=== PATIENT | female | born 1970 | race Caucasian/White ===

== ENCOUNTER → 2017-11-22 12:56 | Outpatient (POV) | payer BC, SELFPAY | PROVIDERS: Visit Provider Nurse Practitioner Acute Care | DX: Z00.00 Encounter for general adult medical examination without abnormal findings (principal) ==

== ENCOUNTER 2017-12-27 10:41 | Day surgery (SDC) | payer BC, SELFPAY ==
[2017-12-24 14:24] VITALS: BMI 28.3
[2017-12-27] VITALS (10 sets, daily range): BP systolic 84–126; BP diastolic 45–75; PULSE 77–97; RESP 14–21; TEMP 36.7–36.9; O2SAT 88–98
[2017-12-27 11:05] LABS: Urine Pregnancy, HCG Qual. Negative (Negative)
--- NOTE | 2017-12-27 12:39 | P.PCN_ITS ---
[facility] Procedure Note Procedure Note:: Colonoscopy Procedure Report: Colonoscopy Endoscopist: Levi Tapia II, MD Referring physician: Abilio Constantino M.D. Date of Procedure: December 27, 2017 Equipment: Olympus 180 variable stiffness pediatric colonoscope Sedation: Fentanyl 200 mg IV/ Versed 11 mg IV Indication: Mrs. Vivar is a 47-year-old female who had a change in bowel habits with constipation that began after her trip to [place] [facility] in March 2017. She has had moderate bloating since that time. She reports no rectal bleeding, weight loss or family history of colon cancer. She did have an EGD with Dr. Abilio Constantino M.D. and had H. pylori that was treated. Her symptoms have continued. Her EGD report indicated shallow ulcerations in the antrum and pyloric channel. This is the patient's first colonoscopy. Procedure: Prior to the procedure, a history and physical exam was performed, and patient' s medications and allergies were reviewed. The risks, benefits and alternatives of the sedation and procedure were discussed with the patient. All questions were answered and informed consent was obtained. The patient was brought to the procedure room. Patient identification and proposed procedure were verified by the physician and the nurse. The patient was placed in a left lateral decubitus position and the scope was passed under direct vision. Throughout the procedure, the patient's blood pressure, pulse, and oxygen saturations were monitored continuously. The colonoscopy was accomplished without difficulty. The patient tolerated the procedure well. Findings: On digital rectal examination there was normal rectal tone. There were no external hemorrhoids. The colonoscope was introduced through the anal canal to the rectum and advanced to the cecum. The ileocecal valve and appendiceal orifice were identified. The scope was advanced a short distance into the ileum which appeared grossly normal. The scope was then withdrawn into the colon. The cecum, ascending, transverse, descending, sigmoid and rectum were grossly normal. There were no mucosal abnormalities identified. Upon retroflexion within the rectum there were grade 1 internal hemorrhoids. Impression: 1. Normal colonoscopy with intubation of the terminal ileum 2. Grade 1 internal hemorrhoids Plan: I do feel the patient has moderate obstipation related symptoms. We will discuss dietary measures and treatment options.
== END 2017-12-27 13:25 | disposition home or self-care (01) ==
LOC: OUTP 10:45
PROVIDERS: Family Provider Family Medicine; PCP Family Medicine; Visit Provider Internal Medicine Gastroenterology
PROC: 0DJD8ZZ Inspection of Lower Intestinal Tract, Via Natural or Artificial Opening Endoscopic (ICD-10-PCS; CPT 45378; principal; 2017-12-27 12:00)
DX: K59.00 Constipation, unspecified (principal); K64.0 First degree hemorrhoids
CPT/HCPCS: 45378; 81025; 99152

== ENCOUNTER → 2018-03-03 08:22 | Outpatient (CLI) | payer BC, SELFPAY ==
[2018-03-03 09:01] LABS: Basophils % 0.4 % (0.1-2.0); Eosinophils # 0.2 K/mm3 (0.0-0.4); Hematocrit 40.2 % (37.0-47.0); Hemoglobin 13.5 g/dL (12.2-16.2); Lymphocytes # 2.9 K/mm3 (0.7-4.5); Lymphocytes % 28.8 K/mm3 (10-50); Mean Corpuscular HGB Conc 33.6 g/dL (31.8-35.4); Mean Corpuscular Hemoglobin 29.6 pg (27.0-31.2); Mean Corpuscular Volume 88.2 fl (81-99); Mean Platelet Volume 7.4 fl (7.4-10.4); Monocytes # 0.4 K/mm3 (0.1-1.0); Monocytes % 4.3 % (1.7-9.3); Neutrophils # 6.4 K/mm3 (1.8-7.8); Neutrophils % 64.5 % (37.0-80.0); Platelet Count 276 K/mm3 (142-424); Red Blood Count 4.55 M/mm3 (4.20-5.40); Red Cell Distribution Width 13.4 % (11.5-17.5)
[2018-03-03 09:08] LABS: Hemoglobin A1C 5.4 % (0.0-7.0)
[2018-03-03 09:49] LABS: Alanine Aminotransferase 24 U/L (12-78); Albumin Level 3.7 gm/dL (3.4-5.0); Alkaline Phosphatase 118 U/L (46-116); Anion Gap 14.6 mEq/L (5-15); Aspartate Amino Transferase 16 U/L (15-37); Bilirubin,Total 0.2 mg/dL (0.2-1.0); Blood Urea Nitrogen 10 mg/dL (7-18); Calcium 9.3 mg/dL (8.5-10.1); Carbon Dioxide 26 mmol/L (21.0-32.0); Chloride 103 mmol/L (98-107); Chol/HDL Ratio 7.3 (1-3.5); Cholesterol 286 mg/dL (140-200); Creatinine,Serum 0.54 mg/dL (0.55-1.02); Estimated Glomerular Filt Rate 121 ml/min (>60); GFR (African American) 146 ML/MIN (>60); Globulin 3.7 gm/dl (1.3-3.2); Glucose 98 mg/dL (74-106); HDL Cholesterol 39 mg/dL (29-89); LDL Cholesterol 204 mg/dL (0-130); Potassium 4.6 mmoL/L (3.5-5.1); Sodium 139 mmol/L (136-145); Thyroid Stimulating Hormone 5.79 uIU/ml (0.358-3.740); Total Protein,Serum 7.4 gm/dL (6.4-8.2); Triglycerides 214 mg/dL (30-200); VLDL Cholesterol 43 mg/dL (0-40)
== END ==
PROVIDERS: Visit Provider Family Medicine
DX: Z00.00 Encounter for general adult medical examination without abnormal findings (principal); E03.9 Hypothyroidism, unspecified
CPT/HCPCS: 36415; 80053; 80061; 83036; 84443; 85025

== ENCOUNTER → 2018-05-02 10:39 | Outpatient (CLI) | payer BC, SELFPAY ==
--- NOTE | 2018-05-02 10:42 | MM_ITS ---
MM Dig screening mamm BI w/CAD ORDERING PHYSICIAN : Isis Vasquez PATIENT AGE: 47 years GENDER: Female INDICATION: ITS.REASON: SCREENING no hormones. No new complaints. Noncontributory family history COMPARISON: May TECHNIQUE: Standard CC and MLO images were obtained. R2 CAD reviewed. FINDINGS: Moderately dense inhomogeneous breast slightly decreases sensitivity of mammography . Prominent asymmetry RIGHT BREAST:Slightly asymmetric tissue at the superior right breast is similar to previous studies. It also dissipates on the other views. Small collection of loosely grouped punctate calcifications at the medial breast again noted, labeled LEFT BREAST: This patient again demonstrates an generous region of asymmetric density superior left breast. This measures roughly 3.6 cm x 2.3 cm This asymmetric area dates back to 2012 mammogram thus it may merely be island of asymmetric fibroglandular tissu. However does contain a few scattered calcifications with question slightly irregular margins in some regions... Inferiorly at the MLO view there is a area labeled Y which most likely is a summation shadow as it dissipates on the views Recommend the patient return for focal compression spot view of the area labeled X and Y at left breast along with left breast ultrasound since one is not been performed to evaluate this asymmetric towards upper-outer quadrant labeled X Also the patient returns suggest magnification spot views likely benign calcifications at area labeled B a . Also MLO, 90 degrees spot views of the area labeled A --------IMPRESSION: Moderately dense inhomogeneous breast LEFT BREAST Large region of asymmetric density towards towards axillary tail left breast most likely prominent area of asymmetric glandular tissue Recommend the patient return for focal compression spot view of the large region labeled X, as well as a small area Y at left breast along with left breast ultrasound since one is not been performed to evaluate this asymmetric towards upper-outer quadrant labeled X RIGHT BREAST Also within patient returns suggest magnification spot views of loosely grouped, likely benign calcifications at labeled B. . Also MLO, 90 degrees spot views of the density labeled A BI-RADS Category: 0 Need Additional Imaging Evaluaiton. RECOMMENDED FOLLOW-UP: IMM - IMMEDIATE FOLLOW-UP RECOMMENDED Spot views and ultrasound left breast . Spot views right breast as above (A letter has been sent to the patient regarding results of the study.)
== END ==
PROVIDERS: Family Provider Family Medicine; PCP Family Medicine; Visit Provider Family Medicine
DX: Z12.31 Encounter for screening mammogram for malignant neoplasm of breast (principal)
CPT/HCPCS: 77067

== ENCOUNTER → 2018-05-17 12:41 | Outpatient (CLI) | payer BC, SELFPAY ==
--- NOTE | 2018-05-17 12:49 | MM_ITS ---
MM Dig mamm BI DX w/CAD COMPARISON: Digital mammograms with CAD 05/02/2018 INDICATION: Additional problem-solving views of asymmetric lesions in each breast TECHNIQUE: Possible compression MLO and CC views of each breast and 90 degree lateral view] FINDINGS: The possible asymmetric density right breast appears to compress out on the additional views. The asymmetric glandular tissue in the left breast appears to represent simply asymmetric glandular tissue better defined on the spot compression views. It does not appear to represent a separate mass. IMPRESSION: Basically negative problem-solving views of each breast ultrasound performed the same date show no definite ultrasound correlation of the asymmetric glandular tissue. A separate lesions seen near the nipple. See the previous ultrasound report for recommendations for 6 month follow-up left mammogram. BI-RADS Category: 3 Benign Finding Short Term Follow-up RECOMMENDED FOLLOW-UP: 6M - 6 MONTH FOLLOW-UP (A letter has been sent to the patient regarding results of the study.)
--- NOTE | 2018-05-17 12:50 | US_ITS ---
US breast LT complete COMPARISON: Diagnostic mammogram same date HISTORY: Asymmetric fibroglandular density upper outer quadrant left breast TECHNIQUE: Targeted ultrasound evaluation FINDINGS: Mild diffuse heterogenic echogenicity is seen in the area of the breast scanned. In particular there is no abnormal mass or architectural distortion in the upper-outer quadrant and the finding on the mammogram likely represents simply asymmetric fibroglandular tissue. There is a small hypoechoic nodular lesion 1:00 position near the nipple probably a small complex cyst or possibly fibroadenoma measuring 0.6 cm in length. I see no definite mammogram correlation for this lesion. There is an additional hypoechoic cystic-appearing lesion at the 10:00 position near the nipple measuring 0.4 x 0.3 cm. There are couple of normal-appearing nodes in the axilla. . IMPRESSION: Findings as described above, since there is no definite mammogram correlation for the complex cystic lesion and/or fibroadenoma 1:00 position suggest patient follow-up ultrasound in 6 months to evaluate for interval stability.
== END ==
PROVIDERS: Family Provider Family Medicine; PCP Family Medicine; Visit Provider Family Medicine
DX: R92.8 Other abnormal and inconclusive findings on diagnostic imaging of breast (principal)
CPT/HCPCS: 76641; 77066

== ENCOUNTER → 2018-11-18 12:42 | Outpatient (CLI) | payer BC, SELFPAY ==
--- NOTE | 2018-11-18 12:53 | US_ITS ---
US breast LT complete Ordering Physician: Isis Vasquez Patient Age: 48 years: Female HISTORY: ITS.REASON: ABNORMAL MAMM TECHNIQUE: Ultrasound survey entire left breast including axillary survey COMPARISON :05/17/2018 ultrasound left breast FINDINGS Moderately dense breast on ultrasound.. 1:00. Small up 6.9 mm mixed echogenicity area.. This is seen previously with no significant change since previous ultrasound I suspect there are some scattered small] apocrine cysts throughout this region central breast cancer this appearance. Follow-up adequate 6:00. Small 3 mm debris-filled cyst.. 10:00 behind nipple 4.2 mm cyst 10:00 outer breast small 4 mm cyst A few scattered benign axillary lymph nodes. ----IMPRESSION: No significant new findings. Scattered small cystic areas, left breast. Small mixed density area 1:00 appears stable, with no significant change.-Suspect scattered apocrine cysts likely here Bilateral follow-up mammogram 6 months to resume annual schedule.. . . Follow-up left breast ultrasound at that time could additionally confirm stability of the above features BI-RADS Category: 2 Benign Finding(s) RECOMMENDED FOLLOW-UP: 6M 6 MONTH FOLLOW-UP . bilateral mammogram 6 months to resume annual scheduled (A letter has been sent to the patient regarding results of the study.)
== END ==
PROVIDERS: PCP Family Medicine; Visit Provider Family Medicine
DX: R92.8 Other abnormal and inconclusive findings on diagnostic imaging of breast (principal)
CPT/HCPCS: 76641

== ENCOUNTER 2019-01-18 08:30 | Outpatient (RCR) | payer BC, SELFPAY ==
--- NOTE | 2018-12-16 09:29 | HMH.OTOPEV ---
OT Inpatient Evaluation Rehab OT Outpatient Eval Start: 12/16/18 08:58 Freq: Status: Active Protocol: Document 12/16/18 08:58 RM[facility] (Rec: 12/16/18 09:28 [id number] Electronically Signed By Arthur Moore OT 12/16/18 08:58 Outpatient Therapy Subjective History Subjective History Pt is a 48 year old female who reports to therapy for initial evaluation for left thumb. Pt reports she hit her left thumb on a barn door months ago, which initially started her pain. Pt was then diagnosed with De quervain's in October, and was put in a thumb spica cast for 3 weeks. Pt currently continues to have pain during certain activities. Pt is wearing a thumb spica brace at this time in order to continue to protect the thumb during activities. Pt does demonstrate with slight decreased AROM, strength, and hotel assistant manager strength. Pt will continue to be seen in order to address these deficits. L Thumb Short Term Goals AROM MP Abd: 90 MP Flex: 50 IP Flex: 50 L Thumb Snf Goals AROM MP Abd: 90 MP Flex: 60 IP Flex: 80 STG MMT L thumb MP: 4, 4+/5 IP: 4,4+/5 LTG MMT L thumb MP: 5/5 IP: 5/5 L hand hotel assistant manager strength: 25 lbs STG L hand hotel assistant manager strength: 30 lbs LTG Chief Complaint Pain Stiff Swelling Weakness Symptom Type Ache Throb Dull Stabbing Symptoms Relieved By Ice Symptoms Aggravated By Physical Activity Twisting
== END 2019-01-18 08:35 | disposition home or self-care (01) ==
LOC: OT 08:30
PROVIDERS: Visit Provider Orthopaedic Surgery
DX: M65.4 Radial styloid tenosynovitis [de Quervain] (principal)
CPT/HCPCS: 97014; 97018; 97035; 97110; 97140; 97166; G0283

== ENCOUNTER → 2019-05-31 13:24 | Outpatient (CLI) | payer BC, SELFPAY ==
--- NOTE | 2019-05-31 13:34 | MM_ITS ---
MM Dig mamm BI DX w/CAD Left breast ultrasound complete with axilla INDICATION: 6 month follow-up abnormal mammogram ORDERING PHYSICIAN: Isis Vasquez PATIENT AGE: 48 years COMPARISON: 05/02/2018, 11/18/2018, 05/17/2018 TECHNIQUE: Standard images performed of both breasts along with bilateral spot compression views and right breast ultrasound FINDINGS: There is dense fibroglandular tissue decreasing the sensitivity of mammography. Right breast: Scattered areas of asymmetric density along with benign-appearing calcifications. Asymmetric densities are noted in the retroareolar region. Asymmetric density is present in the superior right breast which does appear to compress out.. Benign-appearing calcifications are present in the inferior aspect of the right breast. These are slightly more prominent compared to the previous study but do have benign appearance. An ML view was attempted however was there was a moderate amount of motion artifact obscuring these areas of calcification. Left breast: There are scattered calcifications in the upper outer aspect of the left breast. There is some asymmetric density in this region as well similar to the previous exam. There was a mild degree of motion artifact on the spot views and moderate degree of motion artifact on the ML view. Calcifications have an unremarkable morphology. There may be some additional calcifications compared to the previous study. This however is questionable. Continued follow-up is recommended. Left breast ultrasound: There is a stable oval 6 mm isoechoic nodule at 1:00. There is a 5 mm cyst at 6:00. 4 mm hypoechoic nodule at 10:00 unchanged. No malignant appearing mass evident. IMPRESSION: No convincing evidence of malignancy. Bilateral calcifications are noted which are probably benign. Recommend continued bilateral 6 month follow-up with magnification views. Otherwise negative BI-RADS Category: 3 Probably Benign Finding Short Term Follow-up RECOMMENDED FOLLOW-UP: 6M - 6 MONTH FOLLOW-UP (A letter has been sent to the patient regarding results of the study.)
== END ==
PROVIDERS: PCP Family Medicine; Visit Provider Family Medicine
DX: R92.8 Other abnormal and inconclusive findings on diagnostic imaging of breast (principal)
CPT/HCPCS: 76641; 77066

== ENCOUNTER → 2020-05-13 14:19 | Outpatient (CLI) | payer OTHER, BC, SELFPAY ==
--- NOTE | 2020-05-13 14:28 | CT_ITS ---
PROCEDURE: CT FACIAL BONES WO CON CLINICAL HISTORY: headach, facial pain COMPARISON: No exams were available for comparison TECHNIQUE: Axial images obtained with sagittal and coronal reformats. All CT scans at the facility use one or more dose reduction, viz: automated exposure control, ma/kV adjustment per patient size (including targeted exams where dose is matched to indication, i.e. head), or iterative reconstruction technique. FINDINGS: The paranasal sinuses have an unremarkable appearance. No air-fluid level, significant mucosal thickening, or sinus mass.. No air-fluid levels are evident. No significant nasal septal deviation. There is a small right dilma bullosa. The ostiomeatal units are patent. No mastoid effusion. The orbits have an unremarkable appearance. There are few scattered small cervical lymph nodes the measuring up to 15 by 9 mm on the right and left side. There are minimal osteoarthritic changes of the TMJ on the right. IMPRESSION: Negative CT sinuses. 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
--- NOTE | 2020-05-13 14:29 | MM_ITS ---
PROCEDURE: MM DIG MAMM BI DX W/CAD Digital Breast Tomosynthesis Included CLINICAL INDICATION: ABN MAMM Follow-up abnormal mammogram COMPARISON: [facility] DIG MAMM-SCREEN ANILA from 05/15/2016 [facility] MM Dig screening mamm BI w/CAD from 05/02/2018 [facility] MM Dig mamm BI DX w/CAD from 05/17/2018 DIG MAMM-DX ANILA from 05/31/2019 TECHNIQUE: Standard images performed along with tomosynthesis and Mag views FINDINGS: Average fibroglandular tissue. Cluster microcalcifications once again noted in the lower inner aspect of the right breast. They may have increased in number with a few pleomorphic calcifications. Biopsy suggested. Loosely clustered calcifications are present in the upper outer left breast. These may also have increased in number.. IMPRESSION: Indeterminate bilateral breast calcifications which have slightly increased in number. Suggest stereotactic biopsy bilateral BI-RAD Category: 4 Suspicious Abnormality - Biopsy Considered FOLLOW-UP: BIO Biopsy Recommended (A letter has been sent to the patient regarding results of the study.) Dictated by: Nash Lainez MD 05/17/2020 17:30 Electronically signed by Nash Lainez MD in [place] 05/17/2020 17:30
== END ==
PROVIDERS: PCP Physician Assistant; Visit Provider Family Medicine
DX: R51 Headache (principal); S06.0X0A Concussion without loss of consciousness, initial encounter; R92.8 Other abnormal and inconclusive findings on diagnostic imaging of breast
CPT/HCPCS: 70486; 77062; 77066; G0279

== ENCOUNTER → 2020-11-18 11:59 | Outpatient (CLI) | payer BC, SELFPAY ==
--- NOTE | 2020-11-18 12:03 | XR_ITS ---
PROCEDURE: XR ANKLE LT MIN 3V CLINICAL INDICATION: left ankle pain COMPARISON: DX XR FOOT LT MIN 3V from 11/18/2020 FINDINGS: No fracture or dislocation. No lytic or blastic change. There is normal mineralization. The joint spaces are well-preserved. No significant degenerative/arthritic changes. No erosive changes evident. Other findings:None. IMPRESSION: Negative left foot and ankle Dictated by: Nash Lainez MD 11/18/2020 15:04 Nash Lainez MD in [place] 11/18/2020 15:04
[2020-11-18 15:11] LABS: Basophils # 0.1 K/mm3 (0-0.2); Basophils % 0.6 % (0.1-2.0); Eosinophils # 0.3 K/mm3 (0.0-0.4); Eosinophils % 2.9 % (0.1-12.0); Hematocrit 45.3 % (37.0-47.0); Lymphocytes # 3.1 K/mm3 (0.7-4.5); Lymphocytes % 32.2 % (10-50); Mean Corpuscular HGB Conc 33.1 g/dL (31.8-35.4); Mean Corpuscular Hemoglobin 28.9 pg (27.0-31.2); Mean Corpuscular Volume 87.3 fl (81-99); Mean Platelet Volume 9.3 fl (7.4-10.4); Monocytes # 0.4 K/mm3 (0.1-1.0); Monocytes % 4.4 % (1.7-9.3); Neutrophils # 5.7 K/mm3 (1.8-7.8); Neutrophils % 59.9 % (37.0-80.0); Platelet Count 336 K/mm3 (142-424); Red Blood Count 5.19 M/mm3 (4.20-5.40); Red Cell Distribution Width 14.1 % (11.5-17.5); White Blood Count 9.5 K/mm3 (4.8-10.8)
[2020-11-18 15:18] LABS: Alanine Aminotransferase 29 U/L (12-78); Albumin Level 4.7 g/dl (3.5-5.0); Albumin/Globulin Ratio 1.4 (1.1-1.8); Alkaline Phosphatase 158 U/L (38-126); Anion Gap 16.6 mEq/L (5-15); Aspartate Amino Transferase 33 U/L (14-36); Bilirubin,Total 0.4 mg/dl (0.2-1.3); Blood Urea Nitrogen 13 mg/dl (7-17); Calcium 10.4 mg/dl (8.4-10.2); Carbon Dioxide 26 mmol/L (22.0-30.0); Chloride 101 mmol/L (98-107); Chol/HDL Ratio 5.7 (1-3.5); Cholesterol 264 mg/dl (140-200); Estimated Glomerular Filt Rate 106 ml/min (>60); GFR (African American) 128 ML/MIN (>60); Globulin 3.4 g/dL (1.3-3.2); Glucose 114 mg/dl (74-100); HDL Cholesterol 46 mg/dl (40-60); Potassium 4.6 mmoL/L (3.5-5.1); Sodium 139 mmol/L (136-145); Total Protein,Serum 8.1 g/dl (6.3-8.2); Triglycerides 277 mg/dl (30-150); VLDL Cholesterol 55 mg/dL (0-40)
[2020-11-18 15:34] LABS: 25-OH Vitamin D, Total 21.6 ng/mL (30-100); Free T4 (Free Thyroxine) 1.03 ng/dl (0.78-2.19)
== END ==
PROVIDERS: PCP Physician Assistant; Visit Provider Physician Assistant
DX: Z00.00 Encounter for general adult medical examination without abnormal findings (principal); S99.911A Unspecified injury of right ankle, initial encounter; E55.9 Vitamin D deficiency, unspecified
CPT/HCPCS: 73610; 73630; 80053; 80061; 82306; 84439; 84443; 85025

== ENCOUNTER 2021-01-21 18:08 | Emergency (ER) | payer BC, SELFPAY ==
--- NOTE | 2021-01-21 18:32 | XR_ITS ---
PROCEDURE: XR ELBOW RT MIN 3V CLINICAL INDICATION: FALL COMPARISON: No exams were available for comparison FINDINGS: No fracture or dislocation. No lytic or blastic change. There is normal mineralization. The joint spaces are well-preserved. No significant degenerative/arthritic changes. No erosive changes evident. Other findings:There is a nonspecific subcortical lucency measuring 2 mm involving the articular aspect of the base of the olecranon. This is of questionable clinical significance and may be artifactual in nature. IMPRESSION: No acute findings. Dictated by: Nash Lainez MD 01/21/2021 18:51 Nash Lainez MD in [place] 01/21/2021 18:51
[2021-01-21 18:47] VITALS: BP 144/87; PULSE 93; RESP 14; TEMP 36.6; O2SAT 98; BMI 20.3
--- NOTE | 2021-01-21 19:03 | HMH.EDUTC ---
[facility] [place] Disposition Clinical Impression: Right elbow pain Fall Qualifiers: Encounter type: initial encounter Qualified Code(s): W19.XXXA - Unspecified fall, initial encounter Disposition: Home, Self-Care Condition on Discharge: Good Instructions: Elbow Sprain, DI for Contusion Additional Instructions: Rest the extremity, Elevate the extremity as tolerated while you are resting. Take ibuprofen for pain. Follow up with Dr. Douglas (orthopedics). I put in a referral but you need to call his office and schedule an appointment. Follow up with your regular doctor. GO TO THE ER FOR ANY WORSENING SYMPTOMS Prescriptions: Ibuprofen [Ibuprofen 800mg Tablet] 800 mg PO Q8HP PRN #30 tab PRN Reason: Moderate Pain Transmission Status: Received by [id number] Referrals: Isis Vasquez [Primary Care Provider] - Daniel Douglas MD [Staff Physician] - Time of Disposition: 19:12 Medical Decision Making - Medical Records Medical records reviewed: No: I reviewed the patient's medical records. - Harry Inquiry Pt receiving controlled substance: No Vital Signs: 01/21/21 18:47 01/21/21 19:38 Temperature 98 F 98 F Temperature Source Oral Pulse Rate 81 Pulse Rate [Right] 93 H Respiratory Rate 14 14 Blood Pressure 119/87 Blood Pressure [Right Arm] 144/87 H Blood Pressure Mean [Right Arm] 106 Blood Pressure Source [Right Arm] Automatic Cuff Blood Pressure Position [Right Arm] Sitting 02 Sat by Pulse Oximetry 98 Oxygen Delivery Method Room Air - Radiology Data #1 Image(s): Elbow Image Reviewed: Yes I reviewed the patient's radiology image, Yes I have reviewed radiologist's interpretation Preliminary Findings: No Fracture Seen PROCEDURE: XR ELBOW RT MIN 3V CLINICAL INDICATION: FALL COMPARISON: No exams were available for comparison FINDINGS: No fracture or dislocation. No lytic or blastic change. There is normal mineralization. The joint spaces are well-preserved. No significant degenerative/arthritic changes. No erosive changes evident. Other findings:There is a nonspecific subcortical lucency measuring 2 mm involving the articular aspect of the base of the olecranon. This is of questionable clinical significance and may be artifactual in nature. IMPRESSION: No acute findings. Dictated by: Nash Lainez MD 01/21/2021 18:51 Nash Lainez MD in [place] 01/21/2021 18:51 [facility] [place] HPI - General Stated complaint: AO fell Injured R Elbow/arm Time Seen by Provider: 01/21/21 19:03 Mode of Arrival: Ambulatory Source of Information: Patient Limitations: No Limitations Description of Symptoms (Recalled from Triage Doc. by RN): pt fell and injured her right elbow and fore arm. HEENT Symptoms (Recalled from RN notes): No Resp Symptoms (Recalled from RN notes): No Skin Symptoms (Recalled from RN notes): No MS Symptoms (Recalled from RN notes): Yes (R arm and elbow pain) Functional Status (Recalled from RN notes): na - History of Present Illness Provider Complaint: She states that over the past 1 month, she has fell twice and came down on her right elbow. The last time she fell was around 2 weeks ago. Since then she has had right elbow pain. - Related Data Home Medications Medication Instructions Recorded Confirmed escitalopram oxalate 20 mg tablet 20 mg PO ONCE 12/03/17 11/18/20 lactobacillus combination no.9 4 1 cap PO DAILY cap 01/11/19 11/18/20 billion cell capsule vortioxetine 10 mg tablet 10 mg PO DAILY 09/19/20 11/18/20 Previous Rx's Medication Instructions Recorded pantoprazole 40 mg tablet,delayed 40 mg PO DAILY #90 tab 08/15/20 release ergocalciferol (vitamin D2) 1,250 1,250 mcg PO WEEKLY #5 cap 11/19/20 mcg (50,000 unit) capsule levothyroxine 88 mcg tablet 88 mcg PO DAILY #30 tab 11/19/20 atorvastatin 10 mg tablet 10 mg PO HS #30 tab 11/28/20 dextroamphetamine-amphetamine ER 20 mg PO DAILY #30 cap 01/20/21 20 mg 24hr capsule,extend r
[2021-01-21 19:38] VITALS: BP 119/87; PULSE 81; RESP 14; TEMP 36.6
== END 2021-01-21 19:25 | disposition home or self-care (01) ==
PROVIDERS: Emergency Provider Nurse Practitioner Family; PCP Family Medicine
DX: M25.521 Pain in right elbow (principal); W18.30XA Fall on same level, unspecified, initial encounter; K21.9 Gastro-esophageal reflux disease without esophagitis; E03.9 Hypothyroidism, unspecified; F17.210 Nicotine dependence, cigarettes, uncomplicated
CPT/HCPCS: 73080; 99202; G0463

== ENCOUNTER → 2021-01-29 09:27 | Outpatient (CLI) | payer BC, SELFPAY ==
--- NOTE | 2021-01-29 09:32 | XR_ITS ---
PROCEDURE: XR ELBOW RT MIN 3V CLINICAL INDICATION: Rt elbow COMPARISON: CR XR ELBOW RT MIN 3V from 01/21/2021 FINDINGS: No acute fractures or dislocations. Bone density is normal. Degenerative changes of the elbow joint noted. The anterior posterior fat pad are within normal limits without evidence of elevation or joint effusion. No significant soft tissue abnormality. IMPRESSION: Degenerative changes. No acute fractures. Dictated by: Chante Douglas 01/29/2021 11:46 Chante Douglas in [facility] 01/29/2021 11:46
== END ==
LOC: RAD 09:29
PROVIDERS: PCP Physician Assistant; Visit Provider Orthopaedic Surgery
DX: M25.521 Pain in right elbow (principal); W19.XXXA Unspecified fall, initial encounter
CPT/HCPCS: 73080

== ENCOUNTER → 2021-07-24 16:44 | Outpatient (CLI) | payer BC, SELFPAY | PROVIDERS: PCP Physician Assistant; Visit Provider Nurse Practitioner | DX: Z20.822 Contact with and (suspected) exposure to COVID-19 (principal) | CPT/HCPCS: C9803; U0003; U0005 ==

== ENCOUNTER → 2021-09-02 08:57 | Outpatient (CLI) | payer BC, SELFPAY | PROVIDERS: PCP Physician Assistant; Visit Provider Nurse Practitioner | DX: Z20.822 Contact with and (suspected) exposure to COVID-19 (principal) | CPT/HCPCS: C9803; U0003; U0005 ==

== ENCOUNTER → 2021-12-01 08:58 | Outpatient (CLI) | payer BC, SELFPAY ==
[2021-12-02 07:02] LABS: Covid-19 Nasal PCR Sendout Lex NOT DETECTED
== END ==
PROVIDERS: Visit Provider Nurse Practitioner
DX: Z20.822 Contact with and (suspected) exposure to COVID-19 (principal)
CPT/HCPCS: C9803; U0004; U0005

== ENCOUNTER 2022-03-17 14:56 | Outpatient (RCR) | payer BC, SELFPAY | END 2022-03-17 15:29 | disposition home or self-care (01) | LOC: PT 14:56 | PROVIDERS: Visit Provider Physician Assistant | DX: M25.572 Pain in left ankle and joints of left foot (principal) | CPT/HCPCS: 97760 ==

== ENCOUNTER → 2022-03-17 15:09 | Outpatient (CLI) | payer BC, SELFPAY ==
--- NOTE | 2022-03-17 15:15 | XR_ITS ---
FINAL REPORT CLINICAL HISTORY: left ankle pain COMPARISON: November 18, 2020 FINDINGS: LEFT ANKLE: Three views of the left ankle were obtained. There is no acute fracture or dislocation. The joint spaces and mortise are intact. There is no soft tissue abnormality. IMPRESSION: No acute bony abnormality. Reviewed, Interpreted and Dictated by Kavon Anderson III, MD Transcribed by Arcelia Hernandez Authenticated by Kavon Anderson III, MD on 03/17/2022 04:17:[address] [facility]
== END ==
LOC: RAD 15:10
PROVIDERS: PCP Family Medicine; Visit Provider Physician Assistant
DX: M25.572 Pain in left ankle and joints of left foot (principal)
CPT/HCPCS: 73610

== ENCOUNTER 2022-08-30 15:40 | Emergency (ER) | payer BC, SELFPAY ==
[2022-08-30 15:41] VITALS: BP 151/79; PULSE 108; RESP 18; TEMP 36.7; O2SAT 98; BMI 26.5
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
[2022-08-30 16:57] VITALS: BP 140/74; PULSE 95; RESP 19; TEMP 36.7; O2SAT 98
== END 2022-08-30 16:57 | disposition home or self-care (01) ==
PROVIDERS: Emergency Provider Emergency Medicine; PCP Physician Assistant
DX: S29.9XXA Unspecified injury of thorax, initial encounter (principal); Z79.899 Other long term (current) drug therapy; F41.9 Anxiety disorder, unspecified; F90.9 Attention-deficit hyperactivity disorder, unspecified type; F31.9 Bipolar disorder, unspecified; K21.9 Gastro-esophageal reflux disease without esophagitis; Z72.0 Tobacco use
CPT/HCPCS: 71101; 99283

== ENCOUNTER → 2022-11-18 09:07 | Outpatient (CLI) | payer BC, SELFPAY ==
[2022-11-18 16:47] LABS: Amphetamine/Metha Screen,Urine Negative ng/ml (<1000)
[2022-11-18 16:48] LABS: Barbiturates Screen,Urine Negative ng/ml (<200)
[2022-11-18 16:49] LABS: Benzodiazepines Screen,Urine Negative ng/ml (<200); Cannabinoid Screen,Urine Negative ng/ml (<50)
[2022-11-18 16:50] LABS: Cocaine Screen,Urine Negative ng/ml (<300)
[2022-11-18 16:51] LABS: Methadone Screen,Urine Negative ng/ml (<300); Opiate Screen,Urine Negative ng/ml (<300)
[2022-11-18 16:52] LABS: Phencyclidine Screen,Urine Negative ng/ml (<25)
== END ==
PROVIDERS: PCP Physician Assistant; Visit Provider Physician Assistant
DX: F90.9 Attention-deficit hyperactivity disorder, unspecified type (principal); Z79.899 Other long term (current) drug therapy
CPT/HCPCS: 80305

== ENCOUNTER → 2022-12-10 23:21 | Outpatient (CLI) | payer BC, SELFPAY | PROVIDERS: PCP Student in an Organized Health Care Education/Training Program; Visit Provider Student in an Organized Health Care Education/Training Program | DX: R05.9 Cough, unspecified (principal); J02.9 Acute pharyngitis, unspecified | CPT/HCPCS: 87070; C9803; U0003; U0005 ==

== ENCOUNTER 2023-04-20 09:15 | Day surgery (SDC) | payer BC, SELFPAY ==
[2023-04-19 16:05] VITALS: BMI 20.3
[2023-04-20 09:32] VITALS: BP 132/71; PULSE 104; RESP 18; TEMP 36.3; O2SAT 96
--- NOTE | 2023-04-20 09:37 | HMH.SCOPE ---
Procedure: Date: 04/20/23 Patient Date of :: 1970 Procedure Performed:: Esophagogastroduodenoscopy with biopsy Colonoscopy Indications:: History of peptic ulcer disease noted in 2019 Screening colonoscopy Performing Provider:: Abilio Constantino MD Referring Provider:: . Sedation:: Monitored anesthesia care Procedure:: After informed consent was obtained the patient was taken to the endoscopy suite. Sedation ensued after the patient was transferred to the left lateral decubitus position. Pulse, blood pressure, and oxygen saturation were monitored throughout the procedure. The endoscope was advanced beyond the duodenal bulb. Retroflexion within the gastric lumen was accomplished. The gastroscope was carefully removed. Digital rectal exam revealed no significant abnormality. The colonoscope was placed in position. The entire colon was evaluated. The colonoscope was carefully removed and the patient was transferred to recovery in stable condition. Please see findings and specimens below for detail. Findings:: Gastroesophageal junction at 39 cm Small sliding hiatal hernia (unchanged) Mild streaking gastritis distally Bowel preparation moderate Moderate sigmoid tortuosity Moderate colonic spasticity Specimens:: Antral biopsy Recommendations:: Follow-up pathology Repeat colonoscopy in 3-5 years secondary to moderate preparation, moderate spasticity, and moderate tortuosity. Complications:: No immediate Estimated blood obtained (mL): 1 Colonoscopy Component Colonoscopy Component Was a colonoscopy performed during today's procedure?: Yes Recommended follow up colonoscopy of at least 10 years?: No If no, follow up colonoscopy recommended in ___ years?: 3-5 years Reason for not recommending >/= 10 yr follow-up interval?: Moderate preparation; moderate spasticity; moderate tortuosity
[2023-04-20 09:44] VITALS: O2SAT 96
[2023-04-20 10:23] VITALS: BP 112/72; PULSE 91; RESP 18; TEMP 36.3; O2SAT 94
--- NOTE | 2023-04-20 10:27 | EXP.ANES.CKL ---
[facility] Disclaimer: The information contained in this section may have been updated after the patient was seen, as this information can be updated by other users. Medical History Attention Deficit Hyperactivity Disorder (ADHD) Bipolar disorder, current episode depressed, mild Gastroesophageal reflux disease Surgical History History of appendectomy History of colonoscopy History of tubal ligation Family History Other No significant family history Social History (Updated 04/20/23 @ 09:27 by Rosaline Carpenter RN) Smoking Status: Current every day smoker tobacco type: cigarettes packs per day: 1 alcohol intake: never substance use type: denies use current occupational status: employed Travel in the last 8 weeks: None household members: family housing: house caffeine: Yes do you feel safe at home: Yes victim of physical abuse: No victim of emotional abuse: No victim of sexual abuse: No would you like helpful sources: No [facility] Anesthesia Checklist Patient Identification Patient Identification: Arm Band Structural Data Admitted From: Home Planned Operative Procedure/s: EGD/Colonoscopy Consent for Planned Operative Procedure(s) Verified: Yes Verified Documents: Surgical Consent and History and Physical NPO Status Verified Time NPO: 00:00 Additional verifications Anesthesia Reactions: No Airway Assessment C-Spine Mobility Assessed: Yes TMJ Mobility Assessed: Yes Dentition: Good Dentition Neurological Assessment Level of Consciousness: Awake and Alert Anesthesia Plan Anesthesia Risk discussed: Yes Anesthesia Plan: Verified ASA Class: II Anesthesia Type: MAC
[2023-04-20 10:35] VITALS: BP 123/69; PULSE 80; RESP 18; O2SAT 97
[2023-04-20 10:50] VITALS: BP 119/83; PULSE 84; RESP 18; O2SAT 97
== END 2023-04-20 10:50 | disposition home or self-care (01) ==
PROVIDERS: PCP Physician Assistant; Visit Provider Surgery
PROC: 0DJ08ZZ Inspection of Upper Intestinal Tract, Via Natural or Artificial Opening Endoscopic (ICD-10-PCS; CPT 43235; principal; 2023-04-20 10:30)
DX: K31.9 Disease of stomach and duodenum, unspecified (principal); Z87.11 Personal history of peptic ulcer disease; K44.9 Diaphragmatic hernia without obstruction or gangrene; K63.89 Other specified diseases of intestine; Z12.11 Encounter for screening for malignant neoplasm of colon
CPT/HCPCS: 43239; 45378; J2704

== ENCOUNTER → 2023-05-21 14:07 | Outpatient (CLI) | payer BC, SELFPAY ==
[2023-05-21 13:09] LABS: Barbiturates Screen,Urine Negative ng/ml (<200)
[2023-05-21 13:10] LABS: Amphetamine/Metha Screen,Urine Negative ng/ml (<1000); Benzodiazepines Screen,Urine Negative ng/ml (<200)
[2023-05-21 13:11] LABS: Cannabinoid Screen,Urine Negative ng/ml (<50)
[2023-05-21 13:12] LABS: Cocaine Screen,Urine Negative ng/ml (<300); Methadone Screen,Urine Negative ng/ml (<300)
[2023-05-21 13:13] LABS: Opiate Screen,Urine Negative ng/ml (<300)
[2023-05-21 13:14] LABS: Phencyclidine Screen,Urine Negative ng/ml (<25)
== END ==
PROVIDERS: PCP Physician Assistant; Visit Provider Emergency Medicine
DX: F90.9 Attention-deficit hyperactivity disorder, unspecified type (principal)
CPT/HCPCS: 80305

== ENCOUNTER 2024-04-27 12:34 | Outpatient (CLI) | payer BC, SELFPAY ==
--- NOTE | 2024-04-27 12:40 | XR_ITS ---
FINAL REPORT TECHNIQUE: 5 views CLINICAL HISTORY: ANILA LOWER BACK PAIN COMPARISON: None FINDINGS: LUMBAR SPINE: There is grade 2 spondylolisthesis secondary to pars defects at the L5-S1 level. There is moderate diffuse degenerative change of the lumbar spine elsewhere. No acute bony abnormality is noted. Vertebral body height is normal. IMPRESSION: Moderate diffuse degenerative change and grade 2 spondylolisthesis secondary to L5-S1 pars defects. Reviewed, Interpreted and Dictated by Cielo Chapa MD Transcribed by Samreen Bush Authenticated and [facility]
== END 2024-04-27 23:59 | disposition home or self-care (01) ==
LOC: RAD 12:35
PROVIDERS: PCP Nurse Practitioner Family; Visit Provider Nurse Practitioner Family
DX: M54.50 Low back pain, unspecified (principal)
CPT/HCPCS: 72110

== ENCOUNTER 2024-07-25 09:32 | Outpatient (POV) | payer BC, SELFPAY | END 2024-07-25 23:59 | disposition home or self-care (01) | LOC: SC 09:32 | PROVIDERS: Visit Provider Dermatology | DX: Z00.00 Encounter for general adult medical examination without abnormal findings (principal) ==

== ENCOUNTER 2024-07-26 09:00 | Outpatient (RCR) | payer BC, SELFPAY | END 2024-07-26 23:59 | disposition home or self-care (01) | LOC: PT 09:00 | PROVIDERS: Visit Provider Orthopaedic Surgery Adult Reconstructive Orthopaedic Surgery | DX: M51.36 Other intervertebral disc degeneration, lumbar region (principal) | CPT/HCPCS: 97110; 97163; 97164; 97530 ==

== ENCOUNTER 2025-05-18 09:08 | Outpatient (CLI) | payer BC, SELFPAY ==
--- OUTSIDE RECORDS SUMMARY | 2025-05-11 11:45 | XMS_ITS | Continuity of Care Document ---
Author Organization [facility] Address [address] [place] [address] Phone Care Team Providers Care Roller Embosser Name Role Phone Jacinto MSN, PARCEL POST TRUCK DRIVER, Emi Unavailable Unavai lable Allergies, Adverse Reactions, Alerts Substance Reaction Status Criticality No Known Allergies Active No Inform ation Medications Medication Instructions Dosage Effective Dates (start - stop) Status Comments levothyroxine 112 mcg tablet take 1 tablet by oral route every day Wednesday-Wednesday. - Active Pristiq 50 mg tablet,extended release TAKE 1 TABLET BY MOUTH EVERY DAY - Active cetirizine 10 mg tablet take 1 tablet by oral route every day 10 MG - Active olanzapine 10 mg tablet TAKE 1 TABLET BY MOUTH EVERY DAY - Active Flonase Allergy Relief 50 mcg/actuation nasal spray,suspension spray 1 - 2 spray by intranasal route every day in each nostril as needed 50-100 MCG - Active BUSPIRONE 10MG TABLETS TAKE 1 TABLET BY MOUTH THREE TIMES DAILY - Active pantoprazole 40 mg tablet,delayed release take 1 tablet by oral route every day 40 MG - Active rosuvastatin 20 mg tablet TAKE 1 TABLET BY MOUTH EVERY DAY - Active black cohosh 540 mg capsule daily - Active Vitamin D3 50 mcg (2,000 unit) capsule take 1 capsule by oral route every day 1 capsule - Active Glucosamine Chondroitin 550 mg-30 mg-1 mg capsule daily - Active Adderall 20 mg tablet take 1 tablet by oral route every 2 days before breakfast 20 MG - Active Advance Directives Directive Yes / No Effective Date File Name No Information Encounters Encounter Description Practice Location Reason(s) For Visit Diagnoses Date Provider [facility] [[email or web address] [address] [place] [address], [facility], tel:[phone] [email or web address] No Information 5 Casey Emi. [address] [place], [place], [id number] , [place]. tel: [phone] [facility] [[email or web address]], [address] [place] [address], [facility], tel:[phone] [email or web address] Encounter for screening mammogram for malignant neoplasm of breast 5 Casey Emi. [address] [place], [place], [address] , . tel: [phone] [facility] [[email or web address]], [address] [place] [address], [facility], tel:[phone] [facility] Follow up on labs (chief complaint) Nicotine dependence, cigarettes, w/ other nicotine-induced disorderPrediabetesMajor depressionHypothyroidism , unspecifiedHyperlipidemi aEssential (primary) hypertensionAbnormal level of alkaline phosphataseBody mass index [BMI] 26.0-26.9, adult 5 Casey Emi. [address] [place], [place], [address] , [place]. tel: [phone] [facility] [[email or web address]], [address] [place] [address], [facility], [place] tel:[phone] [facility] No Information 5 Casey Emi. [address] [place], [place], [address] , [place]. tel: [phone] [facility] [[email or web address]], [address] [place] [address], [facility], [place] tel:[phone] [facility] [place] Chest Congestion (chief complaint) Acute upper respiratory infection, unspecifiedBody mass index [BMI] 27.0-27.9, adult 5 Casey Emi. [address] [place], [place], [address] [place] [address] , . tel: [phone] [facility] [[email or web address]], [address] [place] [address], [facility], tel:[phone] [facility] [place] FASTING LABS (chief complaint) Essential (primary) hypertension 5 Casey Emi. [address] [place], [place], [address] [place] [address] , . tel: [phone] [facility] [[email or web address]], [address] [place] [address], [facility], tel:[phone] [facility] [place] Depression Screening (chief complaint)P rapare (chief complaint)c hest congestion (chief complaint)t [facility] (chief complaint) Encounter for screening for depressionAcute upper respiratory infection, unspecifiedBody mass index [BMI] 28.0-28.9, adultEssential (primary) hypertensionNicotine dependence, cigarettes, w/ other nicotine-induced disorder 5 Casey Emi. [address] [place], [place], [address] , . tel: [phone] [facility] [[email or web address]], [address] [place] [address], [facility], tel:[phone] [facility] [place] Acute upper respiratory infection, unspecified 5 Casey Emi. [address] [place], [place], [address] , . tel: [phone] [facility] [[email or web address]], [address] [place] [address], [facility], tel:[phone] [facility] [place] dysuria (chief complaint) DysuriaBody mass index [BMI] 28.0-28.9, adult Mar-0 3- 5 Casey Emi. [address] [place], [place], [address] , [place]. tel: [phone] [facility] [[email or web address]], [address] [place] [address], [facility], tel:[phone] [facility] [place] urinary urgency (chief complaint)t [facility] (chief complaint) Dysuria Fe 5 Casey Emi. [address] [place], [place], [address] , [place]. tel: [phone] [facility] [[email or web address]], [address] [place] [address], [facility], [place] tel:[phone] [facility] [place] LABS (chief complaint) Hypothyroidism, unspecified 4 Casey Emi. [address] [place], [place], [address] , [place]. tel: [phone] [facility] [[email or web address]], [address] [place] [address], [facility], [place] tel:[phone] [facility] [place] FOLLOW UP ON LABS (chief complaint) Body mass index [BMI] 27.0-27.9, adultEssential (primary) hypertensionMenopauseNic otine dependence, cigarettes, w/ other nicotine-induced disorderIrritable bowel syndrome - 4 Casey Emi. [address] [place], [place], [address] , [place]. tel: [phone] [facility] [[email or web address]], [address] [place] [address], [facility], [place] tel:[phone] [facility] [place] lab collection (chief complaint) Emotional lability 4 Casey Emi. [address] [place], [place], [address] , [place]. tel: [phone] [facility] [[email or web address]], [address] [place] [address], [facility], tel:[phone] [facility] [place] No Information 4 Casey Emi. [address] [place], [place], [address] , . tel:[phone] [facility] [[email or web address]], [address] [place] [address], [facility], tel:[phone] [facility] [place] FASTING LABS (chief complaint)F ROBERTA VACCINE (chief complaint) Essential (primary) hypertension 4 Casey Emi. [address] [place], [place], [address] [place] [address] , [place]. tel: [phone] [facility] [[email or web address]], [address] [place] [address], [facility], tel:[phone] [facility] [place] follow up on labs (chief complaint) Hypothyroidism, unspecifiedHypercalcemia Abnormal level of alkaline phosphataseBody mass index [BMI] 26.0-26.9, adult 4 Casey Emi. [address] [place] [address], [address] [place] [address] , [place]. tel: [phone] [facility] [[email or web address]], [address] [place] [address], [facility], tel:[phone] [facility] [place] lab collection (chief complaint) DysuriaEssential (primary) hypertension 4 Casey Emi. [address] [place], [place], [address] , [place]. tel: [phone] [address], [facility], tel:[phone] [facility] [place] possible UTI/Yeast (chief complaint) DysuriaBody mass index [BMI] 25.0-25.9, adultUTIVaginitis 4 Casey Emi. [address] [place], [place], [address] , . tel: [phone] [facility] [[email or web address]], [address] [place] [address], [facility], tel:[phone] [email or web address] TUCKER Spondylolisthesis, lumbar region 4 Casey Emi. [address] [place], [place], [address] , [place]. tel: [phone] [facility] [[email or web address]], [address] [place] [address], [facility], tel:[phone] [facility] (chief complaint) Body mass index [BMI] 26.0-26.9, adultEncntr for tassel making machine operator exam (general) (routine) w/o abn findingsEncntr screen for infections w sexl mode of transmissLow back pain, unspecified 4 Casey Emi. [address] [place], [place], [address] , [place]. tel: [phone] [facility] [[email or web address]], [address] [place] [address], [address], [place] tel:[phone] [facility] [place] follow up labs (chief complaint) Body mass index [BMI] 27.0-27.9, adultAnxiety disorder, unspecifiedEssential (primary) hypertensionHyperlipidem iaHypothyroidism, unspecifiedNicotine dependence, cigarettes, w/ other nicotine-induced disorderPrediabetes 4 Casey Emi. [address] [place], [place], [address] , [place]. tel: [phone] [facility] [[email or web address]], [address] [place] [address], [facility], [place] tel:[phone] [facility] sore throat (chief complaint) Essential (primary) hypertensionBody mass index [BMI] 27.0-27.9, adultAcute pharyngitisOtitis media, unspecified, right ear 4 Casey Emi. [address] [place], [place], [address] , [place]. tel:[phone] [facility] [[email or web address]], [address] [place] [address], [facility], [place] tel:[phone] [facility] [place] f/u depression/ ear pain (chief complaint) Other seasonal allergic rhinitisMood disorderMajor depressionGERD disease w/ esophagitis, w/o bleedingEncounter for screening for depressionEncounter for screening examination for other mental health and behavioral disorders 4 Casey Emi. [address] [place], [place], [address] , [place]. tel:[phone], [facility], [place] tel:[phone] [facility] [place] COVID TEST (chief complaint) Encounter for screening for [id number] 4 Casey Emi. [address] [place], [place], [address] , [place]. tel:[phone] [facility] [[email or web address]], [address] [place] [address], [facility], [place] tel:[phone] [facility] [place] fasting lab collection (chief complaint) Essential (primary) hypertensionHyperlipidem iaBilateral pink eye 3 Casey Emi. [address] [place], [place], [address] , [place]. tel:[phone] [facility] [[email or web address]], [address] [place] [address], [address], [place] tel:[phone] [facility] [place] sore throat (chief complaint) Acute pharyngitisBody mass index [BMI] 27.0-27.9, adult 3 Casey Emi. [address] [place], [place], [address] , [place]. tel:[phone] [facility] [[email or web address]], [address] [place] [address], [facility], tel:[phone] [facility] [place] Anxiety (chief complaint) Hypothyroidism, unspecifiedBody mass index [BMI] 27.0-27.9, adultAnxiety disorder, unspecifiedAD/HD, predominantly inattentive presentationMood disorderEssential (primary) hypertensionNicotine dependence, cigarettes, w/ other nicotine-induced disorder 3 Casey Emi. [address] [place], [place], [address] , [place]. tel: [phone] [facility] [[email or web address]], [address] [place] [address], [facility], tel:[phone] [facility] [place] Medication (chief complaint) AD/HD, predominantly inattentive presentationBody mass index [BMI] 27.0-27.9, adultAnxiety disorder, unspecifiedEmotional labilityNicotine dependence, cigarettes, w/ other nicotine-induced disorderHypothyroidism 3 Casey Emi. [address] [place], [place], [address] , [place]. tel: [phone] [facility] [[email or web address]], [address] [place] [address], [facility], tel:[phone] [facility] [place] Fasting Labs (chief complaint) Essential (primary) hypertension 3 Casey Emi. [address] [place], [place], [address] , [place]. tel: [phone] [facility] [[email or web address]], [address] [place] [address], [facility], tel:[phone] [facility] [place] Follow up on Labs (chief complaint) Anxiety disorder, unspecifiedEmotional labilityEssential (primary) hypertensionHyperlipidem iaHypothyroidismMood disorderBody mass index [BMI] 27.0-27.9, adult Naren- 3 Casey Emi. [address] [place], [place], [address] , [place]. tel:[phone] [facility] [[email or web address]], [address] [place] [address], [facility], tel:[phone] [email or web address] [place] lab collection (chief complaint) Essential (primary) hypertension 3 Casey Emi. [address] [place], [place], [address] , [place]. tel:[phone] [facility] [[email or web address]], [address] [place] [address], [facility], tel:[phone] [facility] [place] follow up meds (chief complaint) Body mass index [BMI] 28.0-28.9, adultAnxiety disorder, unspecified 3 Casey Emi. [address] [place], [place], [address] , [place]. tel:[phone] [facility] [[email or web address]], [address] [place] [address], [facility], tel:[phone] [email or web address]A [place] follow up on meds (chief complaint) Body mass index [BMI] 28.0-28.9, adultAnxiety disorder, unspecifiedMenopause 3 Casey Emi. [address] [place], [place], [address] , [place]. tel:[phone] [facility] [[email or web address]], [address] [place] [address], [facility], [place] tel:[phone] [email or web address]A [place] menopause (chief complaint) Anxiety disorder, unspecifiedEmotional labilityEssential (primary) hypertensionHypothyroidi smMood disorderNicotine dependence, cigarettes, w/ other nicotine-induced disorderUnspecified menopausal and perimenopausal disorder 3 Casey Emi. [address] [place], [place], [address] , . tel: [phone] [facility] [[email or web address]], [address] [place] [address], [address], tel:[phone] [facility] follow up (chief complaint) Body mass index [BMI] 29.0-29.9, adultAcute upper respiratory infection, unspecifiedHypothyroidis mHyperlipidemiaEssential (primary) hypertension 3 Casey Emi. [address] [place], [place], [address] , . tel: [phone] [facility] [[email or web address]], [address] [place] [address], [address], tel:[phone] [facility] follow up meds (chief complaint) Body mass index [BMI] 29.0-29.9, adultAnxiety disorder, unspecifiedMood disorderHypothyroidismNi cotine dependence, cigarettes, w/ other nicotine-induced disorder 3 Casey Emi. [address] [place], [place], [address] , . tel: [phone] [facility] [[email or web address]], [address] [place] [address], [facility], tel:[phone] [email or web address]A DEBORD GERD (chief complaint) GERD disease w/ esophagitis, w/o bleeding 3 Casey Emi. [address] [place], [place], [address] , [place]. tel: [phone] [facility] [[email or web address]], [address] [place] [address], [address], [place] tel:[phone] [facility] follow up labs (chief complaint) Anxiety disorder, unspecifiedHypothyroidis mHyperlipidemiaGERD disease w/ esophagitis, w/o bleedingNicotine dependence, cigarettes, w/ other nicotine-induced disorderElevated blood-pressure reading w/o diagnosis of HTNBody mass index [BMI] 29.0-29.9, adult 2 Casey Emi. [address] [place], [place], [address] , [place]. tel:[phone] [facility] [[email or web address]], [address] [place] [address], [facility], tel:[phone] [facility] follow up medication (chief complaint) ADHDAnxiety disorder, unspecifiedHypothyroidis mMood disorderMixed irritable bowel syndromeChanges in skin texture 2 Casey Emi. [address] [place], [place], [address] , [place]. tel:[phone] [facility] [[email or web address]], [address] [place] [address], [facility], [place] tel:[phone] [email or web address] anxiety (chief complaint) Anxiety disorder, unspecifiedHypothyroidis [facility] 2 Casey Emi. [address] [place], [place], [address] , [place]. tel: [phone] [facility] [[email or web address]], [address] [place] [address], [facility], [place] tel:[phone] [facility] follow up labs (chief complaint) Anxiety disorder, unspecifiedHypothyroidis mHyperlipidemiaMood disorderOtalgia, right ear 2 Casey Emi. [address] [place], [place], [address] , [place]. tel:[phone] [facility] [[email or web address]], [address] [place] [address], [facility], [place] tel:[phone] [email or web address]A [place] NEW PATIENT (chief complaint)G eneSight Testing (chief complaint) Encounter for screening for depressionEncounter for screening examination for other mental health and behavioral disordersEncounter for screening for diseases of the blood and blood-forming organs and certain disorders involving the immune mechanismAnxiety disorder, unspecifiedEmotional labilityFatigueEncounter for immunization 2 Jacinto Middleton. [address] [place], [place], [address] , . tel:[phone] Family History Family Member Type Diagnosis Age At Onset Mother Problem Glacoma Maternal grandfather Problem alzheimer's disease Mother Problem Alive and well Father Problem Alive and well Maternal grandmother Problem natural causes/old a ge Paternal grandfather Problem Gun Shot Immunizations Vaccine Date Status Comments Influenza virus vaccine, trivalent (IIV3), split virus, preservative free, 0.5 mL dosage, for intramuscular use administered Source: Ne w Immunization Record SARS-COV-2 (COVID-19) vaccin e, mRNA, spike protein, LNP, bivalent booster, preservative free, 50 mcg/0.5 mL or 25 mcg/0.25 mL dose (Moderna) refused Source: New I mmunization Record Influenza, injectable, quadrivalent, split virus, preservative free, 0.5 mL dosage, 3 years and older, Afluria Quad administered Source: New Immun ization Record COVID-19 mRNA (MOD) administered Source: Other Registry COVID-19 mRNA (MOD) administered Source: Other Registry Influenza Quad Inj administered Source: O ther Registry Influenza Quad Inj administered Source: O ther Registry Payers Payer name Insurance type Covered republican ID Authoriza tion(s) [place] [facility] [facility] [id number] [place] [employer] [facility] [id number] [place] [employer] [facility] [id number] Social History Type Description Quantity Date Captured Comments Alcohol Use Details Unknown Caffeine Use Details Unknown Tobacco Use Status Smoking Status No Information Sex Female Sexual Orientation Straight or heterosexual Aug Gender Identity Female Chief Complaint And Reason For Visit No Information Plan Of Treatment Date Type Action Status Goal Obtain Height, W eight, and BMI. Due on due Goal Tobacco Use Scre ening. Due on due Goal HPV. Due on due Goal Unhealthy drug use screening due Goal HPV testing. Due on due Goal PAP. Due on due Goal CBC. Due on due Goal Follow up Plan f or abnormal BMI (Less than 18.5, greater than 25). Due on due Goal Tobacco Use Cess ation Counseling. Due on due Goal TSH. Due on due Goal Diabetes screening. Due on due Goal Depression scree cinda. Due on due Goal Influenza vaccine. Due on due Goal Vitamin D. Due on due Goal Pap/HPV testing. Due on due Goal Vitamin B12. Due on due Goal Generalized Anxi ety Disorder - 7 (RICHA-7). Due on due Goal CMP. Due on due Goal Tobacco screening. Due on due Goal HIV screen due Goal Lipid panel. Due on due Goal ECG. Due on due Goal Urinalysis due Goal Obtain blood Pre ssure. Due on due Goal Hepatitis C Screening due Goal Unhealthy drug use screening due Goal PAP. Due on due Goal Depression scree cinda. Due on due Goal Hepatitis C Screening due Goal Pap/HPV testing. Due on due Goal Vitamin D. Due on due Goal Follow up Plan f or abnormal BMI (Less than 18.5, greater than 25). Due on due Goal HPV. Due on due Goal Diabetes screening. Due on due Goal CBC. Due on due Goal Tobacco Use Cess ation Counseling. Due on due Goal Tobacco Use Scre ening. Due on due Goal Tobacco screening. Due on due Goal Generalized Anxi ety Disorder - 7 (RICHA-7). Due on due Goal Obtain Height, W eight, and BMI. Due on due Goal HIV screen due Goal CMP. Due on due Goal Influenza vaccine. Due on Oc due Goal TSH. Due on due Goal Vitamin B12. Due on due Goal ECG. Due on due Goal Lipid panel. Due on due Goal HPV testing. Due on due Goal Urinalysis due Goal Obtain blood Pre ssure. Due on due Goal Lipid panel. Due on due Goal Tobacco screening. Due on due Goal HPV. Due on due Goal Influenza vaccine. Due on due Goal TSH. Due on due Goal Tobacco Use Scre ening. Due on due Goal Hepatitis C Screening due Goal Follow up Plan f or abnormal BMI (Less than 18.5, greater than 25). Due on due Goal Vitamin D. Due on due Goal CMP. Due on due Goal Generalized Anxi ety Disorder - 7 (RICHA-7). Due on due Goal HIV screen due Goal Pap/HPV testing. Due on due Goal Tobacco Use Cess ation Counseling. Due on due Goal Obtain Height, W eight, and BMI. Due on due Goal Diabetes screening. Due on due Goal PAP. Due on due Goal Unhealthy drug use screening due Goal Depression scree cinda. Due on due Goal ECG. Due on due Goal Urinalysis due Goal Obtain blood Pre ssure. Due on due Goal Vitamin B12. Due on due Goal HPV testing. Due on due Goal CBC. Due on due Goal Lifestyle education regardin g diet completed Goal Tobacco cessation counseling completed Goal Lipid panel. Due on due Goal Tobacco screening. Due on Ma due Goal Tobacco Use Cess ation Counseling. Due on due Goal TSH. Due on due Goal PAP. Due on due Goal HIV screen due Goal Depression scree cinda. Due on due Goal Tobacco Use Scre ening. Due on due Goal Drug Abuse Scree cinda Test (DAST-10). Due on due Goal Vitamin B12. Due on 025 due Goal Hepatitis C Screening due Goal HPV testing. Due on 029 due Goal Vitamin D. Due on due Goal HPV. Due on due Goal CBC. Due on due Goal Follow up Plan f or abnormal BMI (Less than 18.5, greater than 25). Due on due Goal Influenza vaccine. Due on Oc due Goal Obtain blood Pre ssure. Due on due Goal Pap/HPV testing. Due on due Goal Unhealthy drug use screening due Goal Obtain Height, W eight, and BMI. Due on due Goal Generalized Anxi ety Disorder - 7 (RICHA-7). Due on due Goal Diabetes screening. Due on A due Goal CMP. Due on due Goal Urinalysis due Goal ECG. Due on due Goal Lifestyle education regardin g diet completed Goal Lipid panel. Due on due Goal CMP. Due on due Goal Generalized Anxi ety Disorder - 7 (RICHA-7). Due on due Goal Vitamin B12. Due on due Goal Pap/HPV testing. Due on due Goal Tobacco Use Cess ation Counseling. Due on due Goal Hepatitis C Screening due Goal PAP. Due on due Goal HPV. Due on due Goal HIV screen due Goal TSH. Due on due Goal Tobacco Use Scre ening. Due on due Goal Follow up Plan for abnormal BMI (Less than 18.5, greater than 25). Due on due Goal Obtain Height, W eight, and BMI. Due on due Goal CBC. Due on due Goal HPV testing. Due on due Goal Diabetes screening. Due on A due Goal Tobacco screening. Due on Ma due Goal Unhealthy drug use screening due Goal Vitamin D. Due on due Goal Drug Abuse Scree cinda Test (DAST-10). Due on due Goal ECG. Due on due Goal Urinalysis due Goal Influenza vaccine. Due on Oc due Goal Obtain blood Pre ssure. Due on due Goal Depression scree cinda. Due on due Goal Vitamin D. Due on due Goal PAP. Due on due Goal Tobacco Use Scre ening. Due on due Goal HIV screen due Goal Diabetes screening. Due on A due Goal Pap/HPV testing. Due on due Goal Hepatitis C Screening due Goal HPV. Due on due Goal CBC. Due on due Goal Vitamin B12. Due on due Goal Tobacco screening. Due on due Goal Depression scree cinda. Due on due Goal TSH. Due on due Goal Generalized Anxi ety Disorder - 7 (RICHA-7). Due on due Goal Lipid panel. Due on due Goal Tobacco Use Cess ation Counseling. Due on due Goal ECG. Due on due Goal Unhealthy drug use screening due Goal Urinalysis due Goal Influenza vaccine. Due on Oc due Goal HPV testing. Due on due Goal CMP. Due on due Goal Obtain Height, W eight, and BMI. Due on due Goal Follow up Plan f or abnormal BMI (Less than 18.5, greater than 25). Due on due Goal Drug Abuse Scree cinda Test (DAST-10). Due on due Goal Obtain blood Pre ssure. Due on due Goal Lifestyle education regardin g diet completed Goal Tobacco cessation counseling completed Goal Generalized Anxi ety Disorder - 7 (RICHA-7). Due on due Goal HPV testing. Due on due Goal Drug Abuse Scree cinda Test (DAST-10). Due on due Goal Diabetes screening. Due on A due Goal Influenza vaccine. Due on due Goal Lipid panel. Due on due Goal Tobacco Use Scre ening. Due on due Goal Obtain Height, W eight, and BMI. Due on due Goal Depression scree cinda. Due on due Goal Follow up Plan f or abnormal BMI (Less than 18.5, greater than 25). Due on due Goal Mammogram. Due on due Goal HIV screen due Goal Hepatitis C Screening due Goal PAP. Due on due Goal CBC. Due on due Goal Vitamin B12. Due on due Goal Tobacco Use Cess ation Counseling. Due on due Goal Pap/HPV testing. Due on due Goal Vitamin D. Due on due Goal TSH. Due on due Goal HPV. Due on due Goal Obtain blood Pre ssure. Due on due Goal CMP. Due on due Goal Urinalysis due Goal Unhealthy drug use screening due Goal ECG. Due on due Goal Colonoscopy. Due on due Goal Lifestyle education regardin g diet completed Goal Mammogram. Due on due Goal Colonoscopy. Due on due Goal HIV screen due Goal Vitamin D. Due on due Goal Influenza vaccine. Due on due Goal Tobacco Use Scre ening. Due on due Goal HPV testing. Due on due Goal Urinalysis due Goal Obtain Height, W eight, and BMI. Due on due Goal Tobacco Use Cess ation Counseling. Due on due Goal Follow up Plan f or abnormal BMI (Less than 18.5, greater than 25). Due on due Goal Pap/HPV testing. Due on due Goal PAP. Due on due Goal Depression scree cinda. Due on due Goal Generalized Anxi ety Disorder - 7 (RICHA-7). Due on due Goal Lipid panel. Due on due Goal HPV. Due on due Goal Hepatitis C Screening due Goal CBC. Due on due Goal Obtain blood Pre ssure. Due on due Goal TSH. Due on due Goal Diabetes screening. Due on A due Goal Drug Abuse Scree cinda Test (DAST-10). Due on due Goal Unhealthy drug use screening due Goal CMP. Due on due Goal ECG. Due on due Goal Vitamin B12. Due on due Goal ECG. Due on due Goal Lipid panel. Due on due Goal Colonoscopy. Due on due Goal Obtain blood Pre ssure. Due on due Goal CBC. Due on due Goal Urinalysis due Goal Drug Abuse Scree cinda Test (DAST-10). Due on due Goal HIV screen due Goal Influenza vaccine. Due on due Goal HPV testing. Due on due Goal TSH. Due on due Goal Follow up Plan f or abnormal BMI (Less than 18.5, greater than 25). Due on due Goal Pap/HPV testing. Due on due Goal Unhealthy drug use screening due Goal CMP. Due on due Goal Hepatitis C Screening due Goal Tobacco Use Cess ation Counseling. Due on due Goal Generalized Anxi ety Disorder - 7 (RICHA-7). Due on due Goal Vitamin B12. Due on due Goal Vitamin D. Due on due Goal Tobacco Use Scre ening. Due on due Goal Diabetes screening. Due on A due Goal Depression scree cinda. Due on due Goal HPV. Due on due Goal PAP. Due on due Goal Mammogram. Due on due Goal Obtain Height, W eight, and BMI. Due on due Goal Pap/HPV testing. Due on due Goal Influenza vaccine. Due on Oc due Goal Vitamin B12. Due on 025 due Goal Vitamin D. Due on due Goal Tobacco Use Scre ening. Due on due Goal Depression scree cinda. Due on due Goal HPV testing. Due on 029 due Goal CMP. Due on due Goal Obtain Height, W eight, and BMI. Due on due Goal Unhealthy drug use screening due Goal TSH. Due on due Goal Colonoscopy. Due on 033 due Goal Generalized Anxi ety Disorder - 7 (RICHA-7). Due on due Goal Drug Abuse Scree cinda Test (DAST-10). Due on due Goal Lipid panel. Due on 029 due Goal Follow up Plan f or abnormal BMI (Less than 18.5, greater than 25). Due on due Goal CBC. Due on due Goal PAP. Due on due Goal Urinalysis due Goal Obtain blood Pre ssure. Due on due Goal Diabetes screening. Due on A due Goal HIV screen due Goal Mammogram. Due on due Goal HPV. Due on due Goal ECG. Due on due Goal Hepatitis C Screening due Goal Tobacco Use Cess ation Counseling. Due on due Goal Lifestyle education regardin g diet completed Goal Depression scree cinda. Due on due Goal HPV. Due on due Goal Vitamin B12. Due on 025 due Goal Drug Abuse Scree cinda Test (DAST-10). Due on due Goal Mammogram. Due on 3 due Goal CBC. Due on due Goal Lipid panel. Due on due Goal Vitamin D. Due on 5 due Goal Follow up Plan f or abnormal BMI (Less than 18.5, greater than 25). Due on due Goal TSH. Due on due Goal Tobacco Use Cess ation Counseling. Due on due Goal Pap/HPV testing. Due on due Goal Diabetes screening. Due on A due Goal Influenza vaccine. Due on Oc due Goal PAP. Due on due Goal Hepatitis C Screening due Goal Generalized Anxi ety Disorder - 7 (RICHA-7). Due on due Goal HPV testing. Due on due Goal CMP. Due on due Goal Obtain blood Pre ssure. Due on due Goal ECG. Due on due Goal Unhealthy drug use screening due Goal Obtain Height, W eight, and BMI. Due on due Goal Colonoscopy. Due on 033 due Goal Tobacco Use Scre ening. Due on due Goal HIV screen due Goal Urinalysis due Goal Depression scree cinda. Due on due Goal CBC. Due on due Goal Vitamin D. Due on 5 due Goal Mammogram. Due on 3 due Goal Tobacco Use Cess ation Counseling. Due on due Goal Hepatitis C Screening due Goal Tobacco Use Scre ening. Due on due Goal Diabetes screening. Due on A due Goal Lipid panel. Due on 029 due Goal Obtain blood Pre ssure. Due on due Goal Follow up Plan f or abnormal BMI (Less than 18.5, greater than 25). Due on due Goal CMP. Due on due Goal PAP. Due on due Goal Urinalysis due Goal ECG. Due on due Goal Drug Abuse Scree cinda Test (DAST-10). Due on due Goal Influenza vaccine. Due on Oc due Goal Generalized Anxi ety Disorder - 7 (RICHA-7). Due on due Goal Vitamin B12. Due on 025 due Goal Pap/HPV testing. Due on due Goal Obtain Height, W eight, and BMI. Due on due Goal Unhealthy drug use screening due Goal HIV screen due Goal TSH. Due on due Goal HPV. Due on due Goal HPV testing. Due on 029 due Goal Colonoscopy. Due on 033 due Goal Unhealthy drug use screening due Goal PAP. Due on due Goal Follow up Plan f or abnormal BMI (Less than 18.5, greater than 25). Due on due Goal Influenza vaccine. Due on Oc due Goal CMP. Due on due Goal Depression scree cinda. Due on due Goal Diabetes screening. Due on A due Goal Mammogram. Due on due Goal Tobacco Use Cess ation Counseling. Due on due Goal Vitamin D. Due on due Goal CBC. Due on due Goal Tobacco Use Scre ening. Due on due Goal HIV screen due Goal Pap/HPV testing. Due on due Goal TSH. Due on due Goal Colonoscopy. Due on 033 due Goal HPV testing. Due on due Goal Obtain Height, W eight, and BMI. Due on due Goal HPV. Due on due Goal Obtain blood Pre ssure. Due on due Goal ECG. Due on due Goal Hepatitis C Screening due Goal Lipid panel. Due on due Goal Urinalysis due Goal Vitamin B12. Due on 025 due Goal Generalized Anxi ety Disorder - 7 (RICHA-7). Due on due Goal Drug Abuse Scree cinda Test (DAST-10). Due on due Goal Diabetes screening. Due on A due Goal Tobacco Use Scre ening. Due on due Goal Obtain Height, W eight, and BMI. Due on due Goal Unhealthy drug use screening due Goal Drug Abuse Scree cinda Test (DAST-10). Due on due Goal Depression scree cinda. Due on due Goal Generalized Anxi ety Disorder - 7 (RICHA-7). Due on due Goal Hepatitis C Screening due Goal Pap/HPV testing. Due on due Goal TSH. Due on due Goal PAP. Due on due Goal CBC. Due on due Goal Mammogram. Due on due Goal Follow up Plan f or abnormal BMI (Less than 18.5, greater than 25). Due on due Goal Vitamin D. Due on due Goal HPV testing. Due on 029 due Goal Urinalysis due Goal Influenza vaccine. Due on due Goal CMP. Due on due Goal Vitamin B12. Due on 025 due Goal Obtain blood Pre ssure. Due on due Goal HIV screen due Goal Tobacco Use Cess ation Counseling. Due on due Goal ECG. Due on due Goal Lipid panel. Due on 029 due Goal Colonoscopy. Due on 033 due Goal HPV. Due on due Goal Lifestyle education regardin g diet completed Goal Obtain Height, W eight, and BMI. Due on due Goal Tobacco Use Scre ening. Due on due Goal Hepatitis C Screening due Goal TSH. Due on due Goal Depression scree cinda. Due on due Goal Generalized Anxi ety Disorder - 7 (RICHA-7). Due on due Goal Unhealthy drug use screening due Goal Drug Abuse Scree cinda Test (DAST-10). Due on due Goal Diabetes screening. Due on A due Goal Pap/HPV testing. Due on due Goal Mammogram. Due on due Goal HIV screen due Goal Influenza vaccine. Due on due Goal Vitamin D. Due on due Goal Tobacco Use Cess ation Counseling. Due on due Goal HPV testing. Due on due Goal HPV. Due on due Goal Follow up Plan f or abnormal BMI (Less than 18.5, greater than 25). Due on due Goal Lipid panel. Due on 029 due Goal CMP. Due on due Goal Obtain blood Pre ssure. Due on due Goal ECG. Due on due Goal Colonoscopy. Due on 033 due Goal Vitamin B12. Due on 025 due Goal PAP. Due on due Goal Urinalysis due Goal CBC. Due on due Goal Follow up Plan f or abnormal BMI (Less than 18.5, greater than 25). Due on due Goal Drug Abuse Scree cinda Test (DAST-10). Due on due Goal Tobacco Use Scre ening. Due on due Goal TSH. Due on due Goal Mammogram. Due on 3 due Goal Tobacco Use Cess ation Counseling. Due on due Goal PAP. Due on due Goal Obtain Height, W eight, and BMI. Due on due Goal Obtain blood Pre ssure. Due on due Goal Depression scree cinda. Due on due Goal Pap/HPV testing. Due on due Goal CBC. Due on due Goal Unhealthy drug use screening due Goal Generalized Anxi ety Disorder - 7 (RICHA-7). Due on due Goal Vitamin D. Due on 5 due Goal CMP. Due on due Goal Lipid panel. Due on 028 due Goal HIV screen due Goal Influenza vaccine. Due on Oc due Goal Urinalysis due Goal Hepatitis C Screening due Goal Diabetes screening. Due on A due Goal HPV. Due on due Goal HPV testing. Due on 029 due Goal Vitamin B12. Due on 025 due Goal Colonoscopy. Due on 033 due Goal ECG. Due on due Goal Lifestyle education regardin g diet completed Goal Vitamin D. Due on due Goal CMP. Due on due Goal Lipid panel. Due on 028 due Goal Vitamin B12. Due on 025 due Goal PAP. Due on due Goal TSH. Due on due Goal Mammogram. Due on 3 due Goal Drug Abuse Scree cinda Test (DAST-10). Due on due Goal Tobacco Use Scre ening. Due on due Goal Generalized Anxi ety Disorder - 7 (RICHA-7). Due on due Goal Diabetes screening. Due on A due Goal HPV testing. Due on 029 due Goal Tobacco Use Cess ation Counseling. Due on due Goal Follow up Plan f or abnormal BMI (Less than 18.5, greater than 25). Due on due Goal Colonoscopy. Due on 033 due Goal Urinalysis. Due on 24 due Goal HIV screen due Goal Depression scree cinda. Due on due Goal Obtain Height, W eight, and BMI. Due on due Goal CBC. Due on due Goal Pap/HPV testing. Due on due Goal HPV. Due on due Goal Influenza vaccine. Due on Oc due Goal Unhealthy drug use screening due Goal Hepatitis C Screening due Goal Obtain blood Pre ssure. Due on due Goal ECG. Due on due Goal Hepatitis C Screening due Goal Lipid panel. Due on due Goal Follow up Plan f or abnormal BMI (Less than 18.5, greater than 25). Due on due Goal HPV. Due on due Goal CBC. Due on due Goal CMP. Due on due Goal Unhealthy drug use screening due Goal HPV testing. Due on 029 due Goal Mammogram. Due on due Goal Drug Abuse Scree cinda Test (DAST-10). Due on due Goal Tobacco Use Scre ening. Due on due Goal Pap/HPV testing. Due on due Goal Diabetes screening. Due on A due Goal Vitamin D. Due on due Goal Depression scree cinda. Due on due Goal Obtain Height, W eight, and BMI. Due on due Goal TSH. Due on due Goal PAP. Due on due Goal Tobacco Use Cess ation Counseling. Due on due Goal Colonoscopy. Due on due Goal Generalized Anxi ety Disorder - 7 (RICHA-7). Due on due Goal HIV screen due Goal Vitamin B12. Due on 025 due Goal Urinalysis. Due on due Goal ECG. Due on due Goal Obtain blood Pre ssure. Due on due Goal Lifestyle education regardin g diet completed Goal PAP. Due on due Goal Diabetes screening. Due on A due Goal HPV testing. Due on due Goal Pap/HPV testing. Due on due Goal HIV screen due Goal Vitamin B12. Due on due Goal Lipid panel. Due on 028 due Goal Follow up Plan f or abnormal BMI (Less than 18.5, greater than 25). Due on due Goal Hepatitis C Screening due Goal CBC. Due on due Goal HPV. Due on due Goal Influenza vaccine. Due on due Goal Unhealthy drug use screening due Goal Drug Abuse Scree cinda Test (DAST-10). Due on due Goal Obtain Height, W eight, and BMI. Due on due Goal Colonoscopy. Due on 033 due Goal Tobacco Use Scre ening. Due on due Goal ECG. Due on due Goal Generalized Anxi ety Disorder - 7 (RICHA-7). Due on due Goal Urinalysis. Due on 24 due Goal Vitamin D. Due on due Goal CMP. Due on due Goal Obtain blood Pre ssure. Due on due Goal Tobacco Use Cess ation Counseling. Due on due Goal Mammogram. Due on due Goal Depression scree cinda. Due on due Goal TSH. Due on due Goal Lifestyle education regardin g diet completed Goal PAP. Due on due Goal Lipid panel. Due on due Goal Follow up Plan f or abnormal BMI (Less than 18.5, greater than 25). Due on due Goal CBC. Due on due Goal HIV screen due Goal Unhealthy drug use screening due Goal Diabetes screening. Due on due Goal Tobacco Use Scre ening. Due on due Goal Vitamin B12. Due on due Goal Drug Abuse Scree cinda Test (DAST-10). Due on due Goal HPV. Due on due Goal Hepatitis C Screening due Goal Depression scree cinda. Due on due Goal Tobacco Use Cess ation Counseling. Due on due Goal Obtain Height, W eight, and BMI. Due on due Goal Influenza vaccine. Due on due Goal CMP. Due on due Goal Generalized Anxi ety Disorder - 7 (RICHA-7). Due on due Goal Obtain blood Pre ssure. Due on due Goal Mammogram. Due on due Goal TSH. Due on due Goal Vitamin D. Due on due Goal ECG. Due on due Goal Colonoscopy. Due on due Goal Urinalysis. Due on 24 due Goal HPV testing. Due on due Goal Pap/HPV testing. Due on due Goal Lifestyle education regardin g diet completed Goal Follow up Plan f or abnormal BMI (Less than 18.5, greater than 25). Due on due Goal HPV testing. Due on due Goal PAP. Due on due Goal Influenza vaccine. Due on due Goal Mammogram. Due on due Goal Hepatitis C Screening due Goal Diabetes screening. Due on due Goal Depression scree cinda. Due on due Goal TSH. Due on due Goal Vitamin B12. Due on due Goal Vitamin D. Due on due Goal HIV screen due Goal Obtain Height, W eight, and BMI. Due on due Goal Tobacco Use Scre ening. Due on due Goal Lipid panel. Due on due Goal CBC. Due on due Goal Drug Abuse Scree cinda Test (DAST-10). Due on due Goal Obtain blood Pre ssure. Due on due Goal Unhealthy drug use screening due Goal Pap/HPV testing. Due on due Goal HPV. Due on due Goal CMP. Due on due Goal Generalized Anxi ety Disorder - 7 (RICHA-7). Due on due Goal Colonoscopy. Due on 033 due Goal Tobacco Use Cess ation Counseling. Due on due Goal Urinalysis. Due on due Goal ECG. Due on due Goal Vitamin B12. Due on 024 due Goal Tobacco Use Scre ening. Due on due Goal Vitamin D. Due on due Goal Drug Abuse Scree cinda Test (DAST-10). Due on due Goal CBC. Due on due Goal Obtain Height, W eight, and BMI. Due on due Goal Hepatitis C Screening due Goal PAP. Due on due Goal Follow up Plan f or abnormal BMI (Less than 18.5, greater than 25). Due on due Goal TSH. Due on due Goal Diabetes screening. Due on due Goal HPV. Due on due Goal CMP. Due on due Goal Pap/HPV testing. Due on due Goal Obtain blood Pre ssure. Due on due Goal Unhealthy drug use screening due Goal Colonoscopy. Due on due Goal Generalized Anxi ety Disorder - 7 (RICHA-7). Due on due Goal Tobacco Use Cess ation Counseling. Due on due Goal Depression scree cinda. Due on due Goal Influenza vaccine. Due on due Goal Mammogram. Due on due Goal Urinalysis. Due on due Goal HPV testing. Due on due Goal HIV screen due Goal Lipid panel. Due on due Goal ECG. Due on due Goal HPV. Due on due Goal Colonoscopy. Due on due Goal CBC. Due on due Goal Mammogram. Due on due Goal Obtain Height, W eight, and BMI. Due on due Goal Tobacco Use Scre ening. Due on due Goal Follow up Plan f or abnormal BMI (Less than 18.5, greater than 25). Due on due Goal PAP. Due on due Goal Unhealthy drug use screening due Goal Depression scree cinda. Due on due Goal Hepatitis C Screening due Goal Generalized Anxi ety Disorder - 7 (RICHA-7). Due on due Goal Diabetes screening. Due on due Goal Lipid panel. Due on 028 due Goal CMP. Due on due Goal Drug Abuse Scree cinda Test (DAST-10). Due on due Goal Vitamin D. Due on due Goal Pap/HPV testing. Due on due Goal Urinalysis. Due on due Goal ECG. Due on due Goal Obtain blood Pre ssure. Due on due Goal HPV testing. Due on due Goal HIV screen due Goal Vitamin B12. Due on due Goal Influenza vaccine. Due on due Goal TSH. Due on due Goal Tobacco Use Cess ation Counseling. Due on due Goal Colonoscopy. Due on 033 due Goal Hepatitis C Screening due Goal PAP. Due on due Goal HIV screen due Goal CBC. Due on due Goal Drug Abuse Scree cinda Test (DAST-10). Due on due Goal HPV testing. Due on due Goal Generalized Anxi ety Disorder - 7 (RICHA-7). Due on due Goal Vitamin D. Due on due Goal Influenza vaccine. Due on Oc 2023 due Goal Lipid panel. Due on due Goal Depression scree cinda. Due on due Goal CMP. Due on due Goal Vitamin B12. Due on due Goal Pap/HPV testing. Due on due Goal Tobacco Use Scre ening. Due on due Goal Urinalysis. Due on due Goal Follow up Plan f or abnormal BMI (Less than 18.5, greater than 25). Due on due Goal HPV. Due on due Goal Diabetes screening. Due on due Goal Obtain Height, W eight, and BMI. Due on due Goal TSH. Due on due Goal Mammogram. Due on due Goal ECG. Due on due Goal Unhealthy drug use screening due Goal Tobacco Use Cess ation Counseling. Due on due Goal Obtain blood Pre ssure. Due on due Goal Lifestyle education regardin g diet completed Goal Tobacco cessation counseling completed Goal CMP. Due on due Goal Hepatitis C Screening due Goal Vitamin D. Due on due Goal Tobacco Use Cess ation Counseling. Due on due Goal HPV. Due on due Goal Drug Abuse Scree cinda Test (DAST-10). Due on due Goal Follow up Plan f or abnormal BMI (Less than 18.5, greater than 25). Due on due Goal CBC. Due on due Goal HPV testing. Due on due Goal Obtain blood Pre ssure. Due on due Goal Obtain Height, W eight, and BMI. Due on due Goal ECG. Due on due Goal Diabetes screening. Due on due Goal PAP. Due on due Goal HIV screen due Goal Depression scree cinda. Due on due Goal Pap/HPV testing. Due on due Goal Tobacco Use Scre ening. Due on due Goal Colonoscopy. Due on 033 due Goal Lipid panel. Due on 028 due Goal Mammogram. Due on due Goal TSH. Due on due Goal Unhealthy drug use screening due Goal Influenza vaccine. Due on due Goal Generalized Anxi ety Disorder - 7 (RICHA-7). Due on due Goal Vitamin B12. Due on 024 due Goal Urinalysis. Due on due Goal Lifestyle education regardin g diet completed Goal Tobacco cessation counseling completed Goal HPV testing. Due on due Goal Tobacco Use Cess ation Counseling. Due on due Goal Influenza vaccine. Due on due Goal Vitamin B12. Due on due Goal Pap/HPV testing. Due on due Goal Follow up Plan f or abnormal BMI (Less than 18.5, greater than 25). Due on due Goal CMP. Due on due Goal Obtain Height, W eight, and BMI. Due on due Goal Unhealthy drug use screening due Goal HIV screen due Goal TSH. Due on due Goal Lipid panel. Due on due Goal CBC. Due on due Goal Generalized Anxi ety Disorder - 7 (RICHA-7). Due on due Goal Depression scree cinda. Due on due Goal PAP. Due on due Goal HPV. Due on due Goal Diabetes screening. Due on due Goal Colonoscopy. Due on 033 due Goal Vitamin D. Due on due Goal Obtain blood Pre ssure. Due on due Goal Drug Abuse Scree cinda Test (DAST-10). Due on due Goal Hepatitis C Screening due Goal Mammogram. Due on 3 due Goal ECG. Due on due Goal Tobacco Use Scre ening. Due on due Goal Urinalysis. Due on 23 due Goal Lifestyle education regardin g diet completed Goal Tobacco cessation counseling completed Goal Colonoscopy. Due on 033 due Goal Obtain Height, W eight, and BMI. Due on due Goal Drug Abuse Scree cinda Test (DAST-10). Due on due Goal Tobacco Use Cess ation Counseling. Due on due Goal HPV testing. Due on due Goal CMP. Due on due Goal Vitamin B12. Due on due Goal Influenza vaccine. Due on due Goal Hepatitis C Scre ening. Due on due Goal Mammogram. Due on due Goal Pap/HPV testing. Due on due Goal TSH. Due on due Goal HPV. Due on due Goal Generalized Anxi ety Disorder - 7 (RICHA-7). Due on due Goal CBC. Due on due Goal Depression scree cinda. Due on due Goal PAP. Due on due Goal Vitamin D. Due on due Goal Lipid panel. Due on due Goal Unhealthy drug u se screening. Due on due Goal HIV screen. Due on due Goal Diabetes screening. Due on due Goal Tobacco Use Scre ening. Due on due Goal ECG. Due on due Goal Follow up Plan f or abnormal BMI (Less than 18.5, greater than 25). Due on due Goal Obtain blood Pre ssure. Due on due Goal Urinalysis. Due on due Goal Follow up Plan f or abnormal BMI (Less than 18.5, greater than 25). Due on due Goal Tobacco Use Scre ening. Due on due Goal PAP. Due on due Goal Colonoscopy. Due on 033 due Goal Generalized Anxi ety Disorder - 7 (RICHA-7). Due on due Goal Vitamin D. Due on due Goal Depression scree cinda. Due on due Goal Vitamin B12. Due on due Goal Tobacco Use Cess ation Counseling. Due on due Goal HPV testing. Due on due Goal Hepatitis C Scre ening. Due on due Goal HPV. Due on due Goal Diabetes screening. Due on due Goal Unhealthy drug u se screening. Due on due Goal Lipid panel. Due on due Goal Urinalysis. Due on due Goal Pap/HPV testing. Due on due Goal HIV screen. Due on due Goal Influenza vaccine. Due on Oc due Goal Obtain Height, W eight, and BMI. Due on due Goal ECG. Due on due Goal CBC. Due on due Goal TSH. Due on due Goal Drug Abuse Scree cinda Test (DAST-10). Due on due Goal Mammogram. Due on due Goal Obtain blood Pre ssure. Due on due Goal CMP. Due on due Goal Lifestyle education regardin g diet completed Goal Follow up Plan f or abnormal BMI (Less than 18.5, greater than 25). Due on due Goal PAP. Due on due Goal Generalized Anxi ety Disorder - 7 (RICHA-7). Due on due Goal Vitamin B12. Due on due Goal Lipid panel. Due on due Goal HPV. Due on due Goal Colonoscopy. Due on due Goal Tobacco Use Scre ening. Due on due Goal Tobacco Use Cess ation Counseling. Due on due Goal Vitamin D. Due on due Goal Depression scree cinda. Due on due Goal Diabetes screening. Due on due Goal Hepatitis C Scre ening. Due on due Goal FIT. Due on due Goal Influenza vaccine. Due on due Goal CMP. Due on due Goal Mammogram. Due on due Goal Pap/HPV testing. Due on due Goal HIV screen. Due on due Goal Urinalysis. Due on due Goal Obtain Height, W eight, and BMI. Due on due Goal FIT-DNA. Due on due Goal FOBT. Due on due Goal Drug Abuse Scree cinda Test (DAST-10). Due on due Goal CBC. Due on due Goal Obtain blood Pre ssure. Due on due Goal TSH. Due on due Goal CT-Colonography. Due on due Goal HPV testing. Due on due Goal ECG. Due on due Goal Unhealthy drug u se screening. Due on due Goal HIV screen. Due on due Goal Vitamin D. Due on due Goal Generalized Anxi ety Disorder - 7 (RICHA-7). Due on due Goal Diabetes screening. Due on due Goal Colonoscopy. Due on 023 due Goal PAP. Due on due Goal FIT. Due on due Goal Mammogram. Due on due Goal Vitamin B12. Due on due Goal Lipid panel. Due on due Goal Influenza vaccine. Due on due Goal FIT-DNA. Due on due Goal CBC. Due on due Goal FOBT. Due on due Goal Obtain Height, W eight, and BMI. Due on due Goal HPV testing. Due on due Goal Tobacco Use Scre ening. Due on due Goal Depression scree cinda. Due on due Goal Hepatitis C Scre ening. Due on due Goal Tobacco Use Cess ation Counseling. Due on due Goal CMP. Due on due Goal Follow up Plan f or abnormal BMI (Less than 18.5, greater than 25). Due on due Goal CT-Colonography. Due on due Goal TSH. Due on due Goal Urinalysis. Due on due Goal Unhealthy drug u se screening. Due on due Goal Drug Abuse Scree cinda Test (DAST-10). Due on due Goal Pap/HPV testing. Due on due Goal Obtain blood Pre ssure. Due on due Goal ECG. Due on due Goal HPV. Due on due Goal Lifestyle education regardin g diet completed Goal Lifestyle education regardin g diet completed Goal ECG. Due on due Goal Obtain blood Pre ssure. Due on due Goal Vitamin B12. Due on due Goal Pap/HPV testing. Due on due Goal Urinalysis. Due on due Goal HIV screen. Due on due Goal Diabetes screening. Due on due Goal Lipid panel. Due on due Goal TSH. Due on due Goal Tobacco Use Scre ening. Due on due Goal Vitamin D. Due on due Goal Obtain Height, W eight, and BMI. Due on due Goal Colonoscopy. Due on due Goal Hepatitis C Scre ening. Due on due Goal Generalized Anxi ety Disorder - 7 (RICHA-7). Due on due Goal FIT-DNA. Due on due Goal Mammogram. Due on due Goal FIT. Due on due Goal Drug Abuse Scree cinda Test (DAST-10). Due on due Goal Unhealthy drug u se screening. Due on due Goal PAP. Due on due Goal CMP. Due on due Goal CT-Colonography. Due on due Goal Follow up Plan f or abnormal BMI (Less than 18.5, greater than 25). Due on due Goal Tobacco Use Cess ation Counseling. Due on due Goal CBC. Due on due Goal FOBT. Due on due Goal HPV. Due on due Goal HPV testing. Due on due Goal Influenza vaccine. Due on Oc t due Goal Depression scree cinda. Due on due Goal Dietary manageme nt education, guidance, and counseling completed Goal Tobacco cessation counseling completed Goal PAP. Due on due Goal Mammogram. Due on due Goal Unhealthy drug u se screening. Due on due Goal Vitamin B12. Due on 023 due Goal Hepatitis C Scre ening. Due on due Goal Tobacco Use Scre ening. Due on due Goal Generalized Anxi ety Disorder - 7 (RICHA-7). Due on due Goal Diabetes screening. Due on A due Goal Depression scree cinda. Due on due Goal Influenza vaccine. Due on Oc due Goal Tobacco Use Cess ation Counseling. Due on due Goal FOBT. Due on due Goal Obtain Height, W eight, and BMI. Due on due Goal FIT. Due on due Goal Vitamin D. Due on due Goal HPV. Due on due Goal CT-Colonography. Due on due Goal Drug Abuse Scree cinda Test (DAST-10). Due on due Goal CBC. Due on due Goal HPV testing. Due on due Goal Obtain blood Pre ssure. Due on due Goal TSH. Due on due Goal Pap/HPV testing. Due on due Goal Follow up Plan f or abnormal BMI (Less than 18.5, greater than 25). Due on due Goal ECG. Due on due Goal HIV screen. Due on due Goal Lipid panel. Due on due Goal CMP. Due on due Goal Colonoscopy. Due on due Goal FIT-DNA. Due on due Goal Urinalysis. Due on due Goal Obtain Height, W eight, and BMI. Due on due Goal Depression scree cinda. Due on due Goal Unhealthy drug u se screening. Due on due Goal Drug Abuse Scree cinda Test (DAST-10). Due on due Goal Vitamin B12. Due on due Goal Colonoscopy. Due on due Goal Vitamin D. Due on due Goal CMP. Due on due Goal FIT-DNA. Due on due Goal FOBT. Due on due Goal Follow up Plan f or abnormal BMI (Less than 18.5, greater than 25). Due on due Goal Diabetes screening. Due on due Goal FIT. Due on due Goal Tobacco Use Cess ation Counseling. Due on due Goal PAP. Due on due Goal CBC. Due on due Goal Hepatitis C Scre ening. Due on due Goal HIV screen. Due on due Goal HPV. Due on due Goal Pap/HPV testing. Due on due Goal Lipid panel. Due on 023 due Goal Mammogram. Due on due Goal Generalized Anxi ety Disorder - 7 (RICHA-7). Due on due Goal CT-Colonography. Due on due Goal TSH. Due on due Goal Tobacco Use Scre ening. Due on due Goal Influenza vaccine. Due on Oc due Goal HPV testing. Due on due Goal Lifestyle education regardin g diet completed Goal Influenza vaccine. Due on Oc due Goal Tobacco Use Scre ening. Due on due Goal Tobacco Use Cess ation Counseling. Due on due Goal CMP. Due on due Goal Mammogram. Due on due Goal Vitamin D. Due on due Goal FOBT. Due on due Goal Diabetes screening. Due on F due Goal Follow up Plan f or abnormal BMI (Less than 18.5, greater than 25). Due on due Goal Depression scree cinda. Due on due Goal Obtain Height, W eight, and BMI. Due on due Goal HPV testing. Due on due Goal Generalized Anxi ety Disorder - 7 (RICHA-7). Due on due Goal Lipid panel. Due on due Goal Hepatitis C Scre ening. Due on due Goal CT-Colonography. Due on due Goal HPV. Due on due Goal CBC. Due on due Goal Unhealthy drug u se screening. Due on due Goal FIT-DNA. Due on due Goal Drug Abuse Scree cinda Test (DAST-10). Due on due Goal Colonoscopy. Due on due Goal Vitamin B12. Due on due Goal FIT. Due on due Goal HIV screen. Due on due Goal PAP. Due on due Goal Pap/HPV testing. Due on due Goal TSH. Due on due Goal Tobacco cessation counseling completed Goal Dietary manageme nt education, guidance, and counseling completed Goal Follow up Plan f or abnormal BMI (Less than 18.5, greater than 25). Due on due Goal FOBT. Due on due Goal Diabetes screening. Due on due Goal HIV screen. Due on due Goal Mammogram. Due on due Goal CBC. Due on due Goal PAP. Due on due Goal Vitamin B12. Due on due Goal Vitamin D. Due on due Goal Influenza vaccine. Due on due Goal Lipid panel. Due on due Goal Drug Abuse Scree cinda Test (DAST-10). Due on due Goal HPV testing. Due on due Goal Tobacco Use Scre ening. Due on due Goal Hepatitis C Scre ening. Due on due Goal Obtain Height, W eight, and BMI. Due on due Goal Tobacco Use Cess ation Counseling. Due on due Goal Depression scree cinda. Due on due Goal Generalized Anxi ety Disorder - 7 (RICHA-7). Due on due Goal Colonoscopy. Due on due Goal TSH. Due on due Goal CMP. Due on due Goal Tobacco cessation counseling completed Goal Lipid panel. Due on due Goal Generalized Anxi ety Disorder - 7 (RICHA-7). Due on due Goal CBC. Due on due Goal Colonoscopy. Due on due Goal CMP. Due on due Goal Vitamin D. Due on due Goal Mammogram. Due on due Goal HIV screen. Due on due Goal Drug Abuse Scree cinda Test (DAST-10). Due on due Goal Follow up Plan f or abnormal BMI (Less than 18.5, greater than 25). Due on due Goal Influenza vaccine. Due on Oc due Goal Tobacco Use Cess ation Counseling. Due on due Goal Diabetes screening. Due on D due Goal PAP. Due on due Goal Hepatitis C Scre ening. Due on due Goal FOBT. Due on due Goal HPV testing. Due on due Goal Vitamin B12. Due on due Goal Tobacco Use Scre ening. Due on due Goal Obtain Height, W eight, and BMI. Due on due Goal Depression scree cinda. Due on due Goal TSH. Due on due Goal Lifestyle education regardin g diet completed Goal TSH. Due on due Goal HIV screen. Due on due Goal FOBT. Due on due Goal Vitamin B12. Due on due Goal Depression scree cinda. Due on due Goal Hepatitis C Scre ening. Due on due Goal Generalized Anxi ety Disorder - 7 (RICHA-7). Due on due Goal Colonoscopy. Due on due Goal CMP. Due on due Goal HPV testing. Due on due Goal Vitamin D. Due on due Goal Obtain Height, W eight, and BMI. Due on due Goal Lipid panel. Due on due Goal Follow up Plan for abnormal BMI (Less than 18.5, greater than 25). Due on due Goal Diabetes screening. Due on N due Goal Tobacco Use Cess ation Counseling. Due on due Goal Influenza vaccine. Due on Oc due Goal Tobacco Use Scre ening. Due on due Goal PAP. Due on due Goal Mammogram. Due on due Goal Drug Abuse Scree cinda Test (DAST-10). Due on due Goal CBC. Due on due Goal FOBT. Due on due Goal Tobacco Use Cess ation Counseling. Due on due Goal Depression scree cinda. Due on due Goal Vitamin D. Due on due Goal Lipid panel. Due on due Goal Hepatitis C Scre ening. Due on due Goal Drug Abuse Scree cinda Test (DAST-10). Due on due Goal Colonoscopy. Due on due Goal HPV testing. Due on due Goal Mammogram. Due on due Goal Tobacco Use Scre ening. Due on due Goal PAP. Due on due Goal Generalized Anxi ety Disorder - 7 (RICHA-7). Due on due Goal HIV screen. Due on due Goal Influenza vaccine. Due on Oc due Goal Follow up Plan f or abnormal BMI (Less than 18.5, greater than 25). Due on due Goal TSH. Due on due Goal Obtain Height, W eight, and BMI. Due on due Goal Diabetes screening. Due on O ct due Goal CMP. Due on due Goal CBC. Due on due Goal Vitamin B12. Due on due Goal Hepatitis C Scre ening. Due on due Goal HIV screen. Due on due Goal Follow up Plan f or abnormal BMI (Less than 18.5, greater than 25). Due on due Goal Tobacco Use Scre ening. Due on due Goal Influenza vaccine. Due on Oc due Goal CMP. Due on due Goal HPV testing. Due on due Goal Drug Abuse Scree cinda Test (DAST-10). Due on due Goal TSH. Due on due Goal Mammogram. Due on due Goal Colonoscopy. Due on due Goal Diabetes screening. Due on O due Goal Depression scree cinda. Due on due Goal Vitamin B12. Due on due Goal CBC. Due on due Goal Obtain Height, W eight, and BMI. Due on due Goal FOBT. Due on due Goal Lipid panel. Due on due Goal Generalized Anxi ety Disorder - 7 (RICHA-7). Due on due Goal Tobacco Use Cess ation Counseling. Due on due Goal PAP. Due on due Goal Vitamin D. Due on due Goal Follow up Plan f or abnormal BMI (Less than 18.5, greater than 25). Due on due Goal Colonoscopy. Due on due Goal Vitamin B12. Due on due Goal Depression scree cinda. Due on due Goal TSH. Due on due Goal CMP. Due on due Goal HPV testing. Due on due Goal Mammogram. Due on due Goal Drug Abuse Scree cinda Test (DAST-10). Due on due Goal Hepatitis C Scre ening. Due on due Goal HIV screen. Due on due Goal Diabetes screening. Due on O ct due Goal Influenza vaccine. Due on Oc t due Goal Tobacco Use Scre ening. Due on due Goal Obtain Height, W eight, and BMI. Due on due Goal Generalized Anxi ety Disorder - 7 (RICHA-7). Due on due Goal Vitamin D. Due on due Goal FOBT. Due on due Goal CBC. Due on due Goal PAP. Due on due Goal Tobacco Use Cess ation Counseling. Due on due Goal Lipid panel. Due on due Goal Tobacco cessation counseling completed Referral Ordered: [facility]AMMO BI INCL CAD Bilateral breast Appointment date/timeframe: 05/18/2025 ordered Referral Ordered: US EXAM, ABDOM, COMPLETE Right abdomen Appointment date/timeframe: 1 Week ordered Referral Ordered: Referrals: Orthopedic Surgery. Evaluate and treat Appointment date/timeframe: 06/20/2024 ordered Referral Ordered: X-RAY EXAM OF LOWER SPINE Bilateral back Appointment date/timeframe: 1 Day ordered Referral [facility] To[facility] Tucker tamika Ordered: [facility] [place] Consult Appointment date/timeframe: 1 Day ordered [facility] Evaluate and treat Appointment date/timeframe: 12/28/2022 ordered Referral Ordered: referred to Gastroenterology ordered Referral Referred To: [facility] Ordered: Referrals: Dermatology. [facility]. Location: [place]. Evaluate and treat Appointment date/timeframe: 11/03/2022 ordered Appointment Arcelia Vivar - Fasting Labs ASHRAF JUDYD Future Order: Lab Order Comp. Me tabolic Panel (14) ([id number]), Scheduled for: Ordered Future Order: Lab Order T3 Uptak e ([id number]), Scheduled for: Ordered Future Order: Lab Order TSH Rfx on Abnormal to Free T4 ([id number]), Scheduled for: Ordered Future Order: Lab Order PTH, Int act ([id number]), Scheduled for: Ordered Future Order: Lab Order Hemoglob in A1c ([id number]), Scheduled for: Ordered Future Order: Lab Order CBC With Differential/Platelet ([id number]), Scheduled for: Ordered Future Order: Lab Order Lipid Pa yeny ([id number]), Scheduled for: Ordered Future Order: Lab Order URINALYS IS, AUTO, W/O SCOPE ([id number]), Collected on: Ordered Future Order: Lab Order CBC (INC LUDES DIFF/PLT) ([id number]), Scheduled for: Ordered Future Order: Lab Order COMPREHE NSIVE METABOLIC PANEL ([id number]), Scheduled for: Ordered Future Order: Lab Order HEMOGLOB IN A1C ([id number]), Scheduled for: Ordered Future Order: Lab Order LIPID PA YENY ([id number]), Scheduled for: Ordered Future Order: Lab Order TSH W/RE FLEX TO FREE T4 ([id number]), Scheduled for: Ordered Future Order: Lab Order VITAMIN D,25-OH,TOTAL,IA ([id number]), Scheduled for: Ordered Future Order: Lab Order VITAMIN B12 ([id number]), Scheduled for: Ordered History Of Present Illness Encounter Date Complaint History Of Prese nt Illness Follow up on labs Arcelia is here to day for f/u on recent labs (03/19/25):Hep- negTSH: elevated 6.940, t4 wnl 1.24Hct/Hgb/RBC slightly elevated-smokerWBC 11.0-recent respiratory illnessAlk phos 157- US of Abd ordered- has some dull pain in RUQ at times, heartburn and pressure pain at times. Denies vomiting/diarrhea, fever.Glucose 100A1c 5.8BP: elevated slightly 133/81 and 141/76low sodium diet recommendedSmoking cessation discussed. Declines medication at this time, but states is ready to quit. Chest Congestion Arcelia is here tod ay due to continued chest congestion and non productive coughing that has been going on for 1 week. FASTING LABS Pt is here today to have fasting labs collected. 1x attempt in right ac with butterfly needle. Successfully collected 3 tubes, pt tolerated well, gauze and coban applied, pt instructed to remove in 5-10 minutes, pt voiced understanding. Pt is scheduled to rtc in 2 weeks to follow up on lab results. Depression Screening Depression screening completed 01/19/25. Pt scored 1, provider aware. -SYLVAIN INFANTE Prapare Prapare screenin leonela completed 01/19/25. -NARESH,SYLVAIN chest congestion Arcelia is here tod ay with complaints of chest congestion that has been going on for 2 weeks. Pt stated that she is coughing up yellow, thick sputum. 1 gram of Rocephin and 80 mg/mL of Depo given in left buttock. Pt tolerated well, band aide applied. telehealth Patient and/or G ronnyian has verified being in the [facility] and has given verbal consent to be treated via telehealth/telephone consultation. Today's visit is being completed via; [employer] videoPatient and/or Guardian provided full consent to use this technology. Patient and/or guardian was advised of the limitations of a video/phone visit via telehealth. Pt was seen in office, provider was remotely located: home. dysuria Onset: 1 day ago . Date of initial symptoms: 12/31/2024. There is no radiation. It occurs occasionally. The problem is with no change. Denies aggravating factors. Denies relieving factors. Additional information: no history of interstitial cystitis, history of irritable bowel, no history of pyelonephritis, no history of stones, history of UTIs, sexually active, States took a home test- was really purple- Testing her is neg, all wnl. urinary urgency Onset: gradual. Date of initial symptoms: 11/29/2024. Severity level is mild. Duration: 1 Week. There is no radiation. Location is suprapubic. The client describes it as cloudy, sharp. It occurs constantly. The problem is worse. Denies aggravating factors. Denies relieving factors. Additional information: no history of interstitial cystitis, history of irritable bowel, no history of pyelonephritis, no history of stones, history of UTIs, sexually active, Reports took an otc home test for UTI and yeast. Yeast was neg, urine was +.. telehealth Patient and/or Leonela rabago has verified being in the [facility] and has given verbal consent to be treated via telehealth/telephone consultation. Today's visit is being completed via; Telephone.Patient and/or Guardian provided full consent to use this technology. Patient and/or guardian was advised of the limitations of a video/phone visit via telehealthProvider completed this visit within his/her office. Patient's location during this visit- Patients workplace. LABS ARCELIA IS HERE THIS MORNING TO HAVE LABS COLLECTED TO RECHECK THC. SUCCESSFULLY COLLECTED 1 TUBE. PT TOLERATED WELL. PROVIDER WILL CONTACT PT WITH RESULT, PT AWARE. FOLLOW UP ON LABS Arcelia is here to day to follow up on lab results.Overall, labs seem to result that Arcelia is postmenopausal.She is taking POC's to aid in her perimenopausal symptoms.She states she has low labido.She also reports having IBS- with more loose stoolshe is taking miralax in the eveningsencouraged to increase fiber in diet she has started exercising as well lab collection Arcelia is here toda y requesting that her hormone levels be checked. She will f/u in 1 week. FASTING LABS ARCELIA IS HERE THIS MORNING TO HAVE FASTING LABS COLLECTED. SUCCESSFULLY COLLECTED 4 TUBES, PT TOLERATED WELL. PT REQUEST THAT PROVIDER CALL HER WITH RESULTS OR CALL HER TO SCHEDULE A FOLLOW UP APPOINTMENT IF SHE NEEDS TO BE SEEN. FLU VACCINE ARCELIA IS HERE THIS MORNING FOR A FLU VACCINE. ADMINISTERED INFLUENZA VACCINE AFLURIA, LOT# [id number], EXP: 03.31.25. PT TOLERATED WELL, BAND AID APPLIED. CONSENT SIGNED AND SCANNED TO CHART. follow up on labs Arcelia is here to day for f/u on labs:CBC okTSH elevated 6.070- Arcelia reports having increased fatigue.She does report compliance with her medication, no missed dosesCa+11.0ALK Carl 126She has no other complaints at this time.Will adjust levothyroxine to 112 mcg and repeat labs in 1 monthDenies soa, cp, dizziness, or fainting.Mood is okDifficulty concentrating - f/u w/ Alyson Henao this coming week for ADHD med management. lab collection Arcelia is here this morning for fasting lab collection. possible UTI/Yeast Arcelia is here t baltazar for symptoms of UTI, dysuria and vaginal itching.She reports she went [place] the [place] and was in a wet bathing suite most of the time.Nothing has made it better.She is NIT + on our dip here.MEdicaiton sent to pharmacy. [facility] Arcelia is here toda y for routine pap smear/women's health visit.Perimenopausal- on OPC for regulation and symptom control.She states is doing well on this.She does smoke- increased risk for Blood clots discussed in r/t to smoking. Smoking cessation declined.Denies vaginal complaints.Last Mammo in 04.09.2023- [facility]- , has an appt this Wednesday for this yearDoes self breast exam monthlyBack pain- states has had 2 years after a fall taking her boot off.It is not constant, but has a lot of pops and cracks. radiates to left hip. follow up labs Arcelia is here toda y for routine f/u on labs and refills.She voices no complaints. She is much better than her last visit- completed [id number] 5.8, Glucose 108- new PreDM- handouts given. Diet modifications recommended to decrease processed sugars, carbsVit D 77TSH 3.70B12 1472WBC 17.0- Sick at time of collection- treatedTotal Cholesterol 162HDL 42Trigs 130, LDL 97- Much improvedShe states she is doing wellTaking her medications as instructedMammo- [facility] - scheduled in April for routine women's healthColonoscopy AprilSmokes 1ppd- trying to cut back and quitnot ready to completely stop at this timeRefills sent to pharmacyTanner Shields for controlled adhd sore throat Onset: 3 Days. S ymptoms are associated with history of allergies and smoker. Symptoms are not associated with dental infection, exposure to strep, history of asthma and sick family member. Aggravating factors include allergens and lying down. Symptoms are relieved by OTC analgesics. Symptoms are not relieved by antihistamines or decongestants. Associated symptoms include chills/rigors, fever, headache, otalgia and pharyngitis. Pertinent negatives include cough. f/u depression/ear pain Arcelia is h ere today for slight increase in depressed mood. Feels that the weather has made is worse (rainy/gloomy). She states it has been hard for her to get out and be around people, some anxiety. Her vyvance was recently increased by Alyson Miller, on Nov 03 and she feels she is in a tunnel. She has an appt with her today to see if she will decrease it. I am increasing her olanzipine to 20 mg dailyGERD is worseinsurance did not cover pantaprazole so she has been out x 2 monthsrefills sent today - but she can buy OTC as eleanor had some confusion between this med and zantaczantac does not seem to work for hershe has woken in night w/ sharp burning painAmy also states her both ears and throat have a pressure pain since having Covid last month.She periodically uses flonase, which helps and takes a benadryl from time to time.I have encouraged her to continue flonase, but switch to zyrtec for better allergy control.She is a smoker- not ready to quitthroat has mild inflammation consistant w/ smokingbil TM small effusionsnares, boggy/bluish COVID TEST ARCELIA IS HERE THIS MORNING TO BE TESTED FOR COVID AFTER BEING EXPOSED BY HER MOTHER AND GRANDMOTHER. PT CURRENTLY HAS MILD SYMPTOMS OF SINUS CONGESTION AND FATIGUE. COVID TEST IS POSITIVE TODAY IN CLINIC. PT INSTRUCTED TO REST AND INCREASE FLUIDS TO STAY HYDRATED. PT GIVEN A WORK NOTE TODAY. PT INSTRUCTED TO QUARINTINE FOR 5 DAYS. fasting lab collection Arcelia is he re today for fasting labsshe also reports having ta pink eyeshe had both eye matted together this morning. This began on . Eyes are red, swollen and itchy. Provider (myself) aware- medication sent to pharmacy. sore throat Onset: 2 Weeks. The severity of the problem is moderate. The problem has worsened. The symptoms are persistent. Symptoms are associated with history of allergies and sick family member. Symptoms are not associated with dental infection, exposure to strep, history of asthma, recent cold and recent travel. Symptoms are not aggravated by allergens, cold air, exertion, lying down or smoke. Associated symptoms include cough, fatigue, fever, headache, myalgia, nasal congestion, otalgia, pharyngitis and sinus pressure. Pertinent negatives include chills/rigors, dyspnea, facial pain or rhinitis. Anxiety This is a follow up visit. There is continuation of initial symptoms. The client reports functioning as somewhat difficult. The client presents with anxious/fearful thoughts, compulsive thoughts, depressed mood, difficulty concentrating, fatigue, feelings of invulnerability, racing thoughts and restlessness but denies difficulty falling asleep, difficulty staying asleep, hallucinations or thoughts of or suicide. The client's risk factors include history of depression and medication. The client's risk factors exclude history of suicidal attempts. The Anxiety is aggravated by stress but not with conflict or stress, drug use, lack of sleep or winter season. The client's relieving factors are medication.The client's symptoms are not relieved by cessation of menses or drugs. The client denies any chronic pain, headache, irritability, nausea, sweating, trembling and urinary frequency. Additional information: increased depressed mood. [facility] last weekSees Alyson on the for vyvance- Arcelia has trouble completing tasks, staying focused. Depression. TSH labs repeated today- reports compliance with meds for past 6 weeks, will consider upping dose if tsh remains high. No SI/HI. Medication Arcelia is here toda to discuss her medication.she was seeing Dr. Hdz for er vyvursula, but he states he will not see her any longer while she is coming here.UDS + AMP, otherwise Larissa is transitioning into [facility] for medication management.Dr. Thomas has agreeded to give 1 month of vyvance [facility] on 06.28.23 with Zohra(won't see Khadijah until 07.22.23)feeling emotional over the weekendShe states she is taking her medication as instructedShnarciso also admits she does not always take her levothyroxine alone, and sometimes missesShe states for the past week she has taken it daily.TSH was elevated in May again 7.69Discussed importance of taking levothyroxine alone - and she will try this coming weeks- Repeat labs Mid AugRTC 2 weeks f/u on anxiety-depression. She states school has started back with more anxietyStayed on couch all weekend Fasting Labs Arcelia is here this morning for fasting labs. Successfully collected 4 tubes. Pt tolerated well. Pt is scheduled to RTC in 2 weeks to follow up on lab results. Follow up on Labs Arcelia is here to day to follow up on recent lab results. Pt has no concerns today. She stated that she is taking all her medications as prescribed and is doing well on them.mood swings better, has more energy, is very well dressed todayShe did not go to [facility]- has appt today at 10, but does not want to stay. Will reschedule for next week.Elevated LDL and trigs, 112,239- on rosuvisatin- improved since Decetter compliance w/ medications per pt reportRecent Colonosopy- patho is not available, but states repeat 3-5 years. (report on chart)small sliding hiatal herniamild gatritisModerate sigmoid toruosity, moderate colonic spacticityShe is to f/u on the for patho reportMammo completed -neg for malignancy- repeat 1 year per pt report lab collection Arcelia is here toda y for fasting labs. States she is doing well. follow up meds Arcelia is here toda y to follow up on medications. She states that she is taking her medication as prescribed. She appeared to be in better spirits today. Pt stated she is currently worried about her [id number]. She didn't show much emotion today. Pt counseled on the importance of taking her medications as prescribed and keeping follow up appointments. Pt made an appointment for counseling with [facility] this AM. follow up on meds Arcelia is here to day to f/u on recent medication changes. We have stopped Lexapro and started pristiq. SHe states the past two days have been a little better. SHe did not get her prempro- as it needed a prior authorization.She is not as anxious, buspar is helpinghot flashes, has started taking black kohorsh, D3 and glucosimineMood has been down-tearfulalso started 0-PBI-ywbmwxd to stop until adjusts to current medicationsRTC 2 weeks menopause Menopause sympto nms worseemotional- crying for no reasons Hot flashes in the afternoons labs for Estrodol, LH and fsh indicate pt is post menopausalPt is insisting to have labs repeatedTSH was 7.35 in FebShe states that she has been compliant with medication, where she was not at that time in FebAmy is very hard to follow in conversation as she jumps from one thing to the nextshe states this is how her life is too.She wants to be good and cook or finish one task, but finds that she just naps for long periods of times, cannot bring herself to complete any task. Hx of adhd was on adderall, but weaned herself off and doesn't feel like she needs it or wants itthen states she cannot concentrate. Is seeing another provider in town for Vyvance. Also on onlanzaprine and lexapro.I have sent her to [facility] for counsling and med management, but she has not gone. She states she wants to find Arcelia again. I know she is in here somewhere. She stopped the welbutrion and states that it made her in a deep place. Was having dreams/visions of bad things happening. follow up Patient here for lab results, otherwise no other complaintsLab results: Vit D 59, TSH 7.35, T4 1.1- unsure of pt is compliant with medication- she reported she had missed some meds last week. WCB, Neutrophils and lymphocytes elevated- reported she was ill 2 weeks ago , but better last week, but now reports scratchy throat, chest mendez and ta ear fullness. in office.Glucose 102Total Cholesterol 202, HDL 47, Tigs 469, LDL not calculated- non-fasting specimen- on statin, possible non-compliance as well.states her chest is burning, still coughing and ta ear fullnessthis has been on going x 1 monthhas been treated 3 weeks ago w/ amoxicillindenies feverTSH elevated- she reports she had not taken her medication the whole week prior to lab draw as she was sickShe is feeling some better today except as described as above. She states she is taking her medication no, but has failed to be compliant in past.She takes her medication for a little while, then stops.Mood is reported as byron just got a new horse Jay that she is caring for follow up meds Arcelia is here toda y as a walk-in patient, claiming she needs to be seen for just life. She has been referred to [facility] for therapy, and made several appointments, but has not kept the appointments.She missed her meds last weekShe still has difficulty with concentrating, has no motivationGene sight testing reviewed....will add welbutrin Escitalopram metabolizes quicklyzyprexa good normal metablolismHot flashes- states she is having more hot flasheswas on prednisone last week for a colddoing byron went to an urgent careRTC 2 weeks f/u med adjustment GERD The severity of the problem is moderate. The problem is improving. The symptoms are constant. The location is epigastric. The patient reports radiation to the chest. The quality of the pain is burning and sharp. Aggravating factors include anxiety. Symptoms are relieved by antacids and H2 blockers. Associated symptoms include bloating, heartburn and myalgia. Pertinent negatives include constipation, diarrhea, fever, flank pain, hematuria, nausea, vomiting, weight gain and weight loss. Additional information: has appt w/ gastro [facility] for colonoscopy on 12/28/22 at 10:30, reports symptoms are better after restart of her medications. follow up labs Arcelia is here toda y to f/u on labs from August, she had missed her last 2 appts.CBC ok- hct and hbg is slightly elevated, but she is a smokerCMP okTSH elevated 6.06 at the time had been out of her medication. Arcelia reports she is unsure if she had been taking this since her last visit, though she states she thinks she has until this past week.She did not know she was to take the medication by itself either. Education provided to patient on the correct administration of medication.Vit D good 44A1c 44B12 >2000Post menopausal- w/ hormone levelsADHD- she reports she could not go without this medication, so she went back to her last PCP ROJELIO Boo and she is currently writing for her dexemethylpheninate 30 mg daily. She reports she is doing better, but today in office is very hard to follow Arcelia in concentration.Depression/anxiety- improved, but reports increased stress w/ her sick grandmother.She states she is taking olanzipine dailyShe did not go to her appt with [facility] because "I feel like I am ok. GERD> Arcelia reports she continues to have gerd symptoms.She states there was a while she was without her pantaprazole and symptoms were worse.She would like to have another Endoscopy/Colonoscopylast was done w/ Margarita Schumacher [facility]- per pt report.She states she sometimes has burning and sharp pain. She would like to see GI again after the of the year for colonoscopy and endoscopy-symptom management. currently has refills of pantaprazole. follow up medication Arcelia is here today to f/u on her olanzaprine- she reports she is doing much better on this medication. She was able to take a small trip and enjoyed it. She states she has feelings again and more energy.She is anxious today but did not take her morning BusparShe still needs medication for her ADHD- she is unable to focusShe has an appt w/ [facility] on the and will set up appt w/ Khadijah for medication managementInitially bp was elevatedRepeat 116/62hr elevated initially 112, now is 94She reports she has IBS, has had some bloating taking benefiberworks well. Wants referal to Dermatology- routine skin director of design visit over the weekend- thought she had broke a rib on her rt rib under her breastXrays neg per ER report reviewedadvised to continue to ues ibuprofien as instructed, and apply moist heat/ice alternationreports symptoms of bloating and IBSanixety is higer the past few days anxiety This is a follow up visit. There is no continuation of initial symptoms. The patient reports functioning as somewhat difficult. The patient presents with anxious/fearful thoughts, compulsive thoughts, difficulty concentrating, excessive worry and fatigue. The anxiety is aggravated by social interactions. The patient denies any associated symptoms. Additional information: Arcelia walked in today requesting strater for adhdand anxiety medication. New medication is doing well, but reports she had to take 1 buspar, that was her mother's the other day to calm her down. follow up labs Arcelia is here toda y for f/u on recent labs: A1c 5.4, vit d 66, b12 >2000, TSH 6.06, T4 1.1. I will repeat labs in 1 month and make adjustments if necessary. Hormone levels indicate that she is post-menopausal. HIV/Hep Neg Cholesterol 285, hdl 56, trigs 258, and ldl 183. She has not had her cholesterol medication in over one month- event though she does physically have the medication. Diet modifications and restart of medication recommended. Pt is agreeable.She currently taking vraylar x 1 week after given samples from her previous pcp.She states she does feel happier, however, will not be able to continue vraylar as it cost $1514.00.We will try zyprexa and see if this will accomplish the same effect. SHe is to rt in 2 weeksADHD- pt states she was taking vyvance, but cost over $300I am unable to write for this medication. I will suggest getting her into to be seen so that they may continue her medication if desired. Next labs will add Gluten testing to r/o ciliac disease.Reports bloating, joint stiffness, and general malaise establish care Arcelia is here to ossibly establish care. She has been seeing [facility], but has not been seen there in more than a year. She was also seen at [facility]a Ospina's office yesterday to establish care there. Today she states she is here for Genesight testing and may choose to come here. It was discussed to choose one pcp for the best care. Records not available for review.Today she states that she is here because she feels all over the place. She states she has been dx w/ ADHD and was on Rittalin for a long time but does not wish to go back on that addictive medication. Most recetnly she reports being on Vyvance, but stopped it as it is $300 a month and is expensive. Yesterday she was given samples of Vraylar 1.5 mg and Mydayis 12.5 mg to replace the vyvance. These too will have to have prior authorization and she may not be able to take them either.She is also currently on Escitalopram 20 mg and has been for 20 years, and feels it does work some.She also has concenrs about hotflashes and monopause. She reports not having a period in over 2 years.Currently taking Amberen for hot flashesShe has mood swings. She states she was tearful yesterdayRecently her daughter moved out and is not handling it wellShe states she has not been able to focus or complete simple tasks- and has been this way most of her lifeShe states she feels torn- in her brain she knows she needs to do something, but fights with herself because she can't focus to complete it.She has requested Gene Site testing which was performed todayShe would also like fasting labs completedFlu shot today. GeneSight Testing Instructions Date Instruction Additional Infor oren It is recommended to stop smoking/vaping to increase overall health and decrease risk of cardiovascular disease. If you wish to stop smoking/vaping, there is a free online [place] from smoking course offered through our local health department. You may call [phone] for more information.Use Nicotine gum as instructed Related to Nicotine dependence, cigarettes, w/ other nicotine-induced disorder Take medications as prescribed. Follow a sleep schedule. Try to engage in 30 minutes of moderate activity daily if tolerated, as exercise has been shown to improve depression symptoms Related to Major depression Low fat, low cholest clemente diet. Avoid fatty, fried, and greasy foods. Physical activity as tolerated. Counseled on risks of associated comorbidities, such as heart disease and stroke. Encouraged avoidance of tobacco products. Related to Hyperlipidemia Take medication devan y at the same time, and on an empty stomach. Get adequate rest daily and 30 minutes of moderate exercise most days of the week. Related to Hypothyroidism, unspecified Patient educated on the importance of maintaining glycemic control. Counseled on diet, exercise and other lifestyle factors that can impact glucose control. Instructed on the importance of taking all medications as prescribed. Patient aware of the importance of diabetic eye exams, dental check ups, foot exams and diabetic foot care. Patient verbalized understanding. Related to Prediabetes Patient currently do ing well. BP in goal range. No medication changes. Patient instructed to follow a low salt diet, continuing taking blood pressure medications as prescribed. Keep routine follow up with clinic. Related to Essential (primary) hypertension Counseled patients o n medications for reflux. Discussed lifestyle modifications including but not limited to elevating the head of the bed, limiting fatty, greasy, spicy food intake. Avoid heavy meals and caffeine intake within 2 hours of bedtime. If applicable, reduce/discontinue tobacco use and/or alcohol use, as both can make reflux symptoms worse. Related to Abnormal level of alkaline phosphatase Giving encouragement to exercise Related to Body mass index [BMI] 26.0-26.9, adult Lifestyle education regarding di et Related to Body mass index [BMI] 26.0-26.9, adult Take all antibiotics until complete. If you experience frequent yeast infections, you may consider taking an OTC probiotic like culturell or align while taking antibiotics. Take rest. Drink plenty of fluids. Uses saline sinus rinses. Use prescription and/or OTC medications for symptom relief as instructed. RTC for worsening URI symptoms. If develops high and/or persistent fever, chills, shortness of breath, severe cough, will need urgent evaluation. Verbalizes an understanding. Related to Acute upper respiratory infection, unspecified Giving encouragement to exercise Related to Body mass index [BMI] 27.0-27.9, adult Lifestyle education regarding di et Related to Body mass index [BMI] 27.0-27.9, adult It is recommended to stop smoking/vaping to increase overall health and decrease risk of cardiovascular disease. If you wish to stop smoking/vaping, there is a free online [place] from smoking course offered through our local health department. You may call [phone] for more information.Use nicotine patches and gum as instructed. Related to Nicotine dependence, cigarettes, w/ other nicotine-induced disorder Patient instructed o f the importance of taking medications as prescribed, following a low salt diet as well as getting physical activity as tolerated. Patient advised to keep BP log daily checking each morning and before bed. Patient to call the clinic if systolic blood pressure is greater than 150 and/or diastolic blood pressure is staying greater than 90. Related to Essential (primary) hypertension Drink plenty of flui ds. Use nasal saline rinses. Nasal steroid spray if tolerated. Antihistamines as needed. Avoid allergy triggers when possible. Take rest. Drink plenty of fluids. Uses saline sinus rinses. Use prescription and/or OTC medications for symptom relief as instructed. RTC for worsening URI symptoms. If develops high and/or persistent fever, chills, shortness of breath, severe cough, will need urgent evaluation. Verbalizes an understanding. (rocephin anbx injection and steroid injection in office today) Related to Acute upper respiratory infection, unspecified Giving encouragement to exercise Related to Body mass index [BMI] 28.0-28.9, adult Lifestyle education regarding di et Related to Body mass index [BMI] 28.0-28.9, adult Avoid chocolate, caf feine, carbonation, or citrus. Take antibiotics until complete. Take all medications as prescribed. Drink plenty of clear fluids. Counseled on appropriate hygiene to reduce risk of future UTI's. Verbalized an understanding of all.your testing here today did not indicate an UTIIF symptoms persist or become worse, please f/u in office Related to Dysuria Giving encouragement to exercise Related to Body mass index [BMI] 28.0-28.9, adult Lifestyle education regarding di et Related to Body mass index [BMI] 28.0-28.9, adult Avoid chocolate, caf feine, carbonation, or citrus. Take antibiotics until complete. Take all medications as prescribed. Drink plenty of clear fluids. Counseled on appropriate hygiene to reduce risk of future UTI's. Verbalized an understanding of all. Related to Dysuria Eat a high fiber t. Decrease stress when able. Increase the amount of water you consume, at least 8 8 oz. glasses daily. Exercise daily 3-5 times weekly. Avoid gaseous causing foods, avoid fried, greasy fatty foods, avoid dairy. Related to Irritable bowel syndrome It is recommended to stop smoking/vaping to increase overall health and decrease risk of cardiovascular disease. If you wish to stop smoking/vaping, there is a free online [place] from smoking course offered through our local health department. You may call [phone] for more information. Related to Nicotine dependence, cigarettes, w/ other nicotine-induced disorder Patient instructed o f the importance of taking medications as prescribed, following a low salt diet as well as getting physical activity as tolerated. Patient advised to keep BP log daily checking each morning and before bed. Patient to call the clinic if systolic blood pressure is greater than 150 and/or diastolic blood pressure is staying greater than 90. Related to Essential (primary) hypertension you may consider Bobby ck cohosh 20-60 mg bid for mood swings, vaginitis, and hot flashes(Do not use if you have a history of breast cancer)Take Vitamin E daily to help with dry skin.Keep upcoming appointment with [facility] for further evaluation Related to Menopause Giving encouragement to exercise Related to Body mass index [BMI] 27.0-27.9, adult Lifestyle education regarding di et Related to Body mass index [BMI] 27.0-27.9, adult Stop the use of tyle nol, avoid ETOH, and if symptomatic RTC Will repeat labs in 1 month Related to Abnormal level of alkaline phosphatase Increase Levothyroxi ne to 112 mcg dailyRTC 1 month repeat labs Related to Hypothyroidism, unspecified Giving encouragement to exercise Related to Body mass index [BMI] 26.0-26.9, adult Lifestyle education regarding di et Related to Body mass index [BMI] 26.0-26.9, adult Avoid chocolate, caf feine, carbonation, or citrus. Take antibiotics until complete. Take all medications as prescribed. Drink plenty of clear fluids. Counseled on appropriate hygiene to reduce risk of future UTI's. Verbalized an understanding of all. Related to UTI Keep area dry as pos sible. Use loose fitting clothing, and made of cotton. Take all medications as prescribed.F/u if not improved or resolved. Good glycemic control is also important in the management of yeast. Related to Vaginitis Giving encouragement to exercise Related to Body mass index [BMI] 25.0-25.9, adult Lifestyle education regarding di et Related to Body mass index [BMI] 25.0-25.9, adult Patient instructed o n appropriate use of medications prescribed for back pain. Discussed conservative measures such as heat, ice, gentle strength stretching, and core muscle strengthening. Avoid heavy lifting, pulling, or tugging. Contact the clinic if any worsening or new symptoms related to back pain occur. Related to Low back pain, unspecified Giving encouragement to exercise Related to Body mass index [BMI] 26.0-26.9, adult Lifestyle education regarding di et Related to Body mass index [BMI] 26.0-26.9, adult Patient educated on the importance of maintaining glycemic control. Counseled on diet, exercise and other lifestyle factors that can impact glucose control.Patient aware of the importance of diabetic eye exams, dental check ups, foot exams and diabetic foot care. Patient verbalized understanding.Review handouts about prediabetes. Related to Prediabetes Take medication devan y at the same time, and on an empty stomach. Get adequate rest daily and 30 minutes of moderate exercise most days of the week. Related to Hypothyroidism, unspecified It is recommended to stop smoking/vaping to increase overall health and decrease risk of cardiovascular disease. If you wish to stop smoking/vaping, there is a free online [place] from smoking course offered through our local health department. You may call [phone] for more information. Related to Nicotine dependence, cigarettes, w/ other nicotine-induced disorder Low fat, low cholest clemente diet. Avoid fatty, fried, and greasy foods. Physical activity as tolerated. Counseled on risks of associated comorbidities, such as heart disease and stroke. Encouraged avoidance of tobacco products.Much Improved! Continue diet modifications and current medication.RTC 6 months for next fasting labs. Related to Hyperlipidemia Patient currently do ing well. BP in goal range. No medication changes. Patient instructed to follow a low salt diet, continuing taking blood pressure medications as prescribed. Keep routine follow up with clinic. Related to Essential (primary) hypertension Discussed stress red uction techniques. Take medications as prescribed. Limit caffeine and nicotine. Try to follow a set sleep schedule. Get daily moderate exercise if able to tolerate.Continue care with [facility] and current medications Related to Anxiety disorder, unspecified Giving encouragement to exercise Related to Body mass index [BMI] 27.0-27.9, adult Lifestyle education regarding di et Related to Body mass index [BMI] 27.0-27.9, adult Patient counseled on doing warm salt water gargles, completing any and all medications prescribed, may use OTC analgesics as needed.Explained that if swelling became worse, if she was unable to control secretions, or unable to swallow, she would need to go to the ER to further assess or rule out peritonsilar abscess. Take all antibiotics until complete. May take with food to ease stomach irritation. If you experience frequent yeast infections, you may consider taking an OTC probiotic like culturell or align while taking antibiotics, or eating yogurt (daily) with active cultures. Related to Acute pharyngitis Take all antibiotics until complete. May take with food to ease stomach irritation. If you experience frequent yeast infections, you may consider taking an OTC probiotic like culturell or align while taking antibiotics, or eating yogurt (daily) with active cultures. Related to Otitis media, unspecified, right ear Dietary Instructions for a healthy weight: BMI should be between the range of 18.5-24.9 for an adult; and Caloric intake should be around 7528-9226 for a female, and 2958-9144 for an adult male. Fiber intake should be about 14 grams for 1000 calories per day. That is about 20-30 grams daily. Good sources of fiber are oatmeal, fortified grains, and green leafy vegetables, apples. You can also use Carbohydrate counting to maintain a healthy weight. One serving is equal to 15 grams (1 piece of bread, small fruit, or 1 cup of milk). Men should have 45-75, Women about 30-65 per meal, and snacks are recommend to be 13-30 grams each. Myplate[employer]gov is a good source for meal planning and dietary education. You may also refer to the [place] [employer] website for further low sodium, health heart diet information. Mediterainian diet would be a suitable diet for your current health conditions. Physical activity as tolerated. Try to engage in some form of moderate physical activity for 30 minutes most days of the week. May modify activity as needed to reduce discomfort. Try to achieve/maintain a healthy body weight to reduce strain on musculoskeletal system. Verbalizes an understanding. Related to Body mass index [BMI] 27.0-27.9, adult Patient currently do ing well. BP in goal range. No medication changes. Patient instructed to follow a low salt diet, continuing taking blood pressure medications as prescribed. Keep routine follow up with clinic. Related to Essential (primary) hypertension Giving encouragement to exercise Related to Body mass index [BMI] 27.0-27.9, adult Lifestyle education regarding di et Related to Body mass index [BMI] 27.0-27.9, adult Drink plenty of flui ds. Use nasal saline rinses. Nasal steroid spray if tolerated. Antihistamines as needed. Avoid allergy triggers when possible. Related to Other seasonal allergic rhinitis Discussed stress red uction techniques. Take medications as prescribed. Limit caffeine and nicotine. Try to follow a set sleep schedule. Get daily moderate exercise if able to tolerate. Related to Mood disorder Counseled patients o n medications for reflux. Discussed lifestyle modifications including but not limited to elevating the head of the bed, limiting fatty, greasy, spicy food intake. Avoid heavy meals and caffeine intake within 2 hours of bedtime. If applicable, reduce/discontinue tobacco use and/or alcohol use, as both can make reflux symptoms worse. Related to GERD disease w/ esophagitis, w/o bleeding Take medications as prescribed. Follow a sleep schedule. Try to engage in 30 minutes of moderate activity daily if tolerated, as exercise has been shown to improve depression symptomsIncrease olanziprine to 20 mg dailyRTC January and fasting labsRTC sooner if new problems, concerns or no improvement in mood Related to Major depression Patient counseled on doing warm salt water gargles, completing any and all medications prescribed, may use OTC analgesics as needed. Take all antibiotics until complete. May take with food to ease stomach irritation. If you experience frequent yeast infections, you may consider taking an OTC probiotic like culturell or align while taking antibiotics, or eating yogurt (daily) with active cultures. Related to Acute pharyngitis Giving encouragement to exercise Related to Body mass index [BMI] 27.0-27.9, adult Lifestyle education regarding di et Related to Body mass index [BMI] 27.0-27.9, adult It is recommended to stop smoking/vaping to increase overall health and decrease risk of cardiovascular disease. If you wish to stop smoking/vaping, there is a free online [place] from smoking course offered through our local health department. You may call [phone] for more information.Use nicotine patches as instructed.RTC 1 month for f/u Related to Nicotine dependence, cigarettes, w/ other nicotine-induced disorder Patient instructed o f the importance of taking medications as prescribed, following a low salt diet as well as getting physical activity as tolerated. Patient advised to keep BP log daily checking each morning and before bed. Patient to call the clinic if systolic blood pressure is greater than 150 and/or diastolic blood pressure is staying greater than 90. Related to Essential (primary) hypertension Discussed stress red uction techniques. Take medications as prescribed. Limit caffeine and nicotine. Try to follow a set sleep schedule. Get daily moderate exercise if able to tolerate. Related to Anxiety disorder, unspecified Take medications as prescribed. Follow a sleep schedule. Try to engage in 30 minutes of moderate activity daily if tolerated, as exercise has been shown to improve depression symptoms Related to Mood disorder Take medication devan y at the same time, and on an empty stomach. Get adequate rest daily and 30 minutes of moderate exercise most days of the week. Related to Hypothyroidism, unspecified Giving encouragement to exercise Related to Body mass index [BMI] 27.0-27.9, adult Lifestyle education regarding di et Related to Body mass index [BMI] 27.0-27.9, adult Dr. Thomas has agre ed to send a one time 30 day supply of medication until we are able to get you into [facility] for medication management. You MUST keep your upcoming appointments with [facility], or you will be with out this medication, as I am unable to prescribe this for you. 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 Take medications as prescribed. Limit caffeine and nicotine. Try to follow a set sleep schedule. Get daily moderate exercise if able to tolerate. Related to Anxiety disorder, unspecified Physical activity as tolerated. Try to engage in some form of moderate physical activity for 30 minutes most days of the week. May modify activity as needed to reduce discomfort. Try to achieve/maintain a healthy body weight to reduce strain on musculoskeletal system. Verbalizes an understanding. Related to Body mass index [BMI] 27.0-27.9, adult COntinue hormonal th erapycontinue other medicationswe will reevaluate your TSH in 6 weeks Related to Emotional lability It is recommended to stop smoking/vaping to increase overall health and decrease risk of cardiovascular disease. If you wish to stop smoking/vaping, there is a free online [place] from smoking course offered through our local health department. You may call [phone] for more information.Use nicotine patches as instructed.RTC 1 month for f/u Related to Nicotine dependence, cigarettes, w/ other nicotine-induced disorder Take medication devan y at the same time, and on an empty stomach. Get adequate rest daily and 30 minutes of moderate exercise most days of the week. Related to Hypothyroidism Lifestyle education regarding di et Related to Body mass index [BMI] 27.0-27.9, adult Giving encouragement to exercise Related to Body mass index [BMI] 27.0-27.9, adult Patient instructed o f the importance of taking medications as prescribed, following a low salt diet as well as getting physical activity as tolerated. Patient advised to keep BP log daily checking each morning and before bed. Patient to call the clinic if systolic blood pressure is greater than 150 and/or diastolic blood pressure is staying greater than 90. Related to Essential (primary) hypertension Low fat, low cholest clemente diet. Avoid fatty, fried, and greasy foods. Physical activity as tolerated. Counseled on risks of associated comorbidities, such as heart disease and stroke. Encouraged avoidance of tobacco products. Related to Hyperlipidemia Take medication devan y at the same time, and on an empty stomach. Get adequate rest daily and 30 minutes of moderate exercise most days of the week. Related to Hypothyroidism Physical activity as tolerated. Try to engage in some form of moderate physical activity for 30 minutes most days of the week. May modify activity as needed to reduce discomfort. Try to achieve/maintain a healthy body weight to reduce strain on musculoskeletal system. Verbalizes an understanding. Related to Body mass index [BMI] 27.0-27.9, adult Discussed stress red uction techniques. Take medications as prescribed. Limit caffeine and nicotine. Try to follow a set sleep schedule. Get daily moderate exercise if able to tolerate. Related to Anxiety disorder, unspecified Giving encouragement to exercise Related to Body mass index [BMI] 27.0-27.9, adult Lifestyle education regarding di et Related to Body mass index [BMI] 27.0-27.9, adult Discussed stress red uction techniques. Take medications as prescribed. Limit caffeine and nicotine. Try to follow a set sleep schedule. Get daily moderate exercise if able to tolerate. Related to Anxiety disorder, unspecified Lifestyle education regarding di et Related to Body mass index [BMI] 28.0-28.9, adult Giving encouragement to exercise Related to Body mass index [BMI] 28.0-28.9, adult Lifestyle education regarding di et Related to Body mass index [BMI] 28.0-28.9, adult Discussed stress red uction techniques. Take medications as prescribed. Limit caffeine and nicotine. Try to follow a set sleep schedule. Get daily moderate exercise if able to tolerate. Related to Anxiety disorder, unspecified Physical activity as tolerated. Try to engage in some form of moderate physical activity for 30 minutes most days of the week. May modify activity as needed to reduce discomfort. Try to achieve/maintain a healthy body weight to reduce strain on musculoskeletal system. Verbalizes an understanding. Related to Body mass index [BMI] 28.0-28.9, adult Giving encouragement to exercise Related to Body mass index [BMI] 28.0-28.9, adult Dietary management e ducation, guidance, and counseling Related to Body mass index [BMI] 28.0-28.9, adult Can try black kohosh 20 mg daily for hot flashes Related to Unspecified menopausal and perimenopausal disorder Take medication devan y at the same time, and on an empty stomach. Get adequate rest daily and 30 minutes of moderate exercise most days of the week. Related to Hypothyroidism It is recommended to stop smoking to increase overall health and decrease risk of cardiovascular disease. If you wish to stop smoking, there is a free online [place] from smoking course offered through our local health department. You may call [phone] for more information. Related to Nicotine dependence, cigarettes, w/ other nicotine-induced disorder Discussed stress red uction techniques. Take medications as prescribed. Limit caffeine and nicotine. Try to follow a set sleep schedule. Get daily moderate exercise if able to tolerate. Related to Anxiety disorder, unspecified Patient currently do ing well. BP in goal range. No medication changes. Patient instructed to follow a low salt diet, continuing taking blood pressure medications as prescribed. Keep routine follow up with clinic. Related to Essential (primary) hypertension Patient instructed o f the importance of taking medications as prescribed, following a low salt diet as well as getting physical activity as tolerated. Patient advised to keep BP log daily checking each morning and before bed. Patient to call the clinic if systolic blood pressure is greater than 150 and/or diastolic blood pressure is staying greater than 90. Related to Essential (primary) hypertension Low fat, low cholest clemente diet. Avoid fatty, fried, and greasy foods. Physical activity as tolerated. Counseled on risks of associated comorbidities, such as heart disease and stroke. Encouraged avoidance of tobacco products. Related to Hyperlipidemia Take medication devan y at the same time, and on an empty stomach. Get adequate rest daily and 30 minutes of moderate exercise most days of the week.No dose change at this time Related to Hypothyroidism Physical activity as tolerated. Try to engage in some form of moderate physical activity for 30 minutes most days of the week. May modify activity as needed to reduce discomfort. Try to achieve/maintain a healthy body weight to reduce strain on musculoskeletal system. Verbalizes an understanding. Related to Body mass index [BMI] 29.0-29.9, adult Take rest. Drink ple nty of fluids. Uses saline sinus rinses. Use prescription and/or OTC medications for symptom relief as instructed. RTC for worsening URI symptoms. If develops high and/or persistent fever, chills, shortness of breath, severe cough, will need urgent evaluation. Verbalizes an understanding. Related to Acute upper respiratory infection, unspecified Giving encouragement to exercise Related to Body mass index [BMI] 29.0-29.9, adult Lifestyle education regarding di et Related to Body mass index [BMI] 29.0-29.9, adult It is recommended to stop smoking to increase overall health and decrease risk of cardiovascular disease. If you wish to stop smoking, there is a free online [place] from smoking course offered through our local health department. You may call [phone] for more information. Related to Nicotine dependence, cigarettes, w/ other nicotine-induced disorder Take medication devan y at the same time, and on an empty stomach. Get adequate rest daily and 30 minutes of moderate exercise most days of the week. Related to Hypothyroidism Discussed stress red uction techniques. Take medications as prescribed. Limit caffeine and nicotine. Try to follow a set sleep schedule. Get daily moderate exercise if able to tolerate.Start bupropion 150 mg once a week this week, then increase to bid Related to Anxiety disorder, unspecified Take medications as prescribed. Follow a sleep schedule. Try to engage in 30 minutes of moderate activity daily if tolerated, as exercise has been shown to improve depression symptoms Related to Mood disorder Giving encouragement to exercise Related to Body mass index [BMI] 29.0-29.9, adult Dietary management e ducation, guidance, and counseling Related to Body mass index [BMI] 29.0-29.9, adult Counseled patients o n medications for reflux. Discussed lifestyle modifications including but not limited to elevating the head of the bed, limiting fatty, greasy, spicy food intake. Avoid heavy meals and caffeine intake within 2 hours of bedtime. If applicable, reduce/discontinue tobacco use and/or alcohol use, as both can make reflux symptoms worse.Keep appt w/ GI for colonoscopy on 12/28/21 at 10:30 Related to GERD disease w/ esophagitis, w/o bleeding Patient instructed o f the importance of taking medications as prescribed, following a low salt diet as well as getting physical activity as tolerated. Patient advised to keep BP log daily checking each morning and before bed. Patient to call the clinic if systolic blood pressure is greater than 150 and/or diastolic blood pressure is staying greater than 90. Related to Elevated blood-pressure reading w/o diagnosis of HTN It is recommended to stop smoking to increase overall health and decrease risk of cardiovascular disease. If you wish to stop smoking, there is a free online [place] from smoking course offered through our local health department. You may call [phone] for more information. Related to Nicotine dependence, cigarettes, w/ other nicotine-induced disorder Avoid eating spicy o r greasy foods. Take pantaprazole 40 mg 20 minutes prior to eating with a full glass of water. Sleep with the head of the bed elevated 30 degrees. Return for worsening symptoms. Related to GERD disease w/ esophagitis, w/o bleeding Low fat, low cholest clemente diet. Avoid fatty, fried, and greasy foods. Physical activity as tolerated. Counseled on risks of associated comorbidities, such as heart disease and stroke. Encouraged avoidance of tobacco products.start taking Rosuvisatin in place of atorvastatin Related to Hyperlipidemia Discussed stress red uction techniques. Take medications as prescribed. Limit caffeine and nicotine. Try to follow a set sleep schedule. Get daily moderate exercise if able to tolerate. Related to Anxiety disorder, unspecified Giving encouragement to exercise Related to Body mass index [BMI] 29.0-29.9, adult Lifestyle education regarding di et Related to Body mass index [BMI] 29.0-29.9, adult Keep your up coming appt with [facility] for medication management Related to ADHD Continue current dose of medicat ion Related to Hypothyroidism Referral to [facility] at [facility] We will call with an appointment once obtained or you may contact their office [facility] [phone] Related to Changes in skin texture Discussed stress red uction techniques. Take medications as prescribed. Limit caffeine and nicotine. Try to follow a set sleep schedule. Get daily moderate exercise if able to tolerate. Related to Anxiety disorder, unspecified Discussed stress red uction techniques. Take medications as prescribed. Limit caffeine and nicotine. Try to follow a set sleep schedule. Get daily moderate exercise if able to tolerate.Increase fiber and water consumptionMay use simethicone 80 mg as instructed for gas Related to Mixed irritable bowel syndrome Take medications as prescribed. Follow a sleep schedule. Try to engage in 30 minutes of moderate activity daily if tolerated, as exercise has been shown to improve depression symptoms Related to Mood disorder I am unable to write for your ADHD medications, but am glad to refer you to [facility] for medication management. Related to ADHD Take medication devan y at the same time, and on an empty stomach. Get adequate rest daily and 30 minutes of moderate exercise most days of the week. Related to Hypothyroidism Discussed stress red uction techniques. Take medications as prescribed. Limit caffeine and nicotine. Try to follow a set sleep schedule. Get daily moderate exercise if able to tolerate. COntinue current medicationsStart taking Buspar three times daily as needed for anxiety. Related to Anxiety disorder, unspecified Take one otc allergy medication daily (certirizine or zyrtec) 10 mg daily. Increase the amount of water you drink daily. It is recommended to drink 8 8oz. glasses of water daily. Use fluticasone, one spray to each nare daily. If fever or worsening occurs, return to clinic for follow up. Related to Otalgia, right ear Take medication devan y at the same time, and on an empty stomach. Get adequate rest daily and 30 minutes of moderate exercise most days of the week. Related to Hypothyroidism Low fat, low cholest clemente diet. Avoid fatty, fried, and greasy foods. Physical activity as tolerated. Counseled on risks of associated comorbidities, such as heart disease and stroke. Encouraged avoidance of tobacco products. Related to Hyperlipidemia start zyprexa Related to Mood disorder Stop vraylarStart zy prexa 10 mg daily Continue LexaproTake your depression/anxiety medications as instructed. Do not stop them abruptly. Monitor your symptoms around the 2nd week of medication. If you have suicidal or homicidal ideation, and feel you might act on them, go to the ER. Call me if this occurs. Related to Anxiety disorder, unspecified Counseled on importa nce of sleep hygiene. Maintain a consistent sleep schedule. Avoid caffeine for at least 6 hours prior to bed. Limit screen time (TV, phone, video games) before bed. Make sure bedroom is cool and dark, which improves sleep quality. If taking medications to help with insomnia, try to take at least 30 minutes before goal bed time. Aware that medications can cause daytime drowsiness. Avoid napping during the day, as it can further disrupt sleep cycle. Try to get 30 minutes of moderate physical activity daily. Verbalizes an understanding. Related to Fatigue Currently taking AmberenLabs tod ay Related to Emotional lability Discussed stress red uction techniques. Take medications as prescribed. Limit caffeine and nicotine. Try to follow a set sleep schedule. Get daily moderate exercise if able to tolerate.Continue with samples given by Erica Bowman (Myday[employer] and vraylar)Gene site testing todayFasting labs todayRTC 2 weeks f/u on labs/medications Related to Anxiety disorder, unspecified Assessments Type Assessment Date No Information
--- NOTE | 2025-05-18 09:11 | US_ITS ---
FINAL REPORT TECHNIQUE: Ultrasound images of the abdomen were obtained. CLINICAL HISTORY: ABNORMAL LEVEL OF ALKALINE PHOSPHATE COMPARISON: None FINDINGS: The liver is unremarkable. Spleen has a normal sonographic appearance. No abnormality of the gallbladder is seen. No biliary ductal dilatation is identified. Kidneys show no evidence of mass or obstruction. Pancreas is not well visualized. IVC and aorta are grossly unremarkable. There is no obvious fluid collection. IMPRESSION: Unremarkable abdominal ultrasound. Reviewed, Interpreted and Dictated by Cielo Chapa MD Transcribed by Ember Salas Authenticated and [facility]
--- OUTSIDE RECORDS SUMMARY | 2025-05-18 09:11 | XMS_ITS | Clinical Summary ---
Author Organization Healthcare Address [address] [place] [address] Care Team Providers Care Log Washer Name Role Phone Unavailable Primary Care Provider Unavailabl e Allergies Active Allergy Reactions Criticality Noted Date Comments Morphine And Codeine Unknown - Patient s tates they do not know rxn details Low 02/14/2018 Medications pantoprazole (ProtoNix) 40 MG EC tablet TAKE 1 TABLET TWICE DAILY 30 MINUTES BEFORE BREAKFAST AND DINNER. 9 Active Probiotic Product (PROBIOTIC PO) TAKE DIRECTED. 9 Active Vortioxetine HBr (Trintellix) 10 MG tablet Take 1 tablet daily 0 Active simvastatin (Zocor) 80 MG tablet Take 1 tablet (80 mg total) by mouth every night. 90 tablet 3 1 Active levothyroxine (Synthroid, Levoxyl) 100 MCG tabletIndications: Acquired hypothyroidism Take 1 tablet (100 mcg total) by mouth 1 (one) time each day. 90 tablet 3 1 Active amphetamine-dextro amphetamine XR (Adderall XR) 25 MG 24 hr capsule Take 1 capsule (25 mg total) by mouth 1 (one) time each day in the morning. Do not crush or chew. 30 capsule 1 Active escitalopram (Lexapro) 20 MG tablet Take 1 tablet by mouth once daily 90 tablet 2 Active Active Problems Problem Noted Date Diagnosed Date Depression 09/19/2020 Heartburn 01/05/2019 Hyperlipidemia 12/10/2015 Hypothyroidism 11/08/2015 Adult ADHD 01/26/2015 RICHA (generalized anxiety disorder) 01/26/2015 Immunizations Immunization Administration Dates Next Due Influenza, injectable, quadrivalent, preservativ e free 08/18/2018 Family History Medical History Relation Name Comments Breast cancer Neg Hx Social History Tobacco Use Types Packs/Day Years Used Date Smoking Tobacco: Every Day Cigarettes Smokeless Tobacco: Never Tobacco Cessation:Ready to Q uit: Not Asked; Counseling Given: Not Answered PHQ-2 Answer Date Recorded Patient Health Questionnaire-2 Score 1 08/21/2021 Comments No Sex and Gender Information Value Date Recorded Sex Assigned at Not on file Legal Sex Female 8:17 PM EDT Gender Identity Not on file Sexual Orientation Not on file Last Filed Vital Signs Vital Sign Reading Time Taken Comments Blood Pressure 132/82 08/21/2021 8:49 AM EDT Pulse 80 08/21/2021 8:49 AM EDT Temperature 36.8 C (98.3 F) 09/19/2020 9:06 AM EST Respiratory Rate 14 07/10/2019 8:59 AM EDT Oxygen Saturation 98% 08/21/2021 8:49 AM EDT Inhaled Oxygen Concentration - - Weight 68 kg (150 lb) 04/08/2023 9:35 AM EDT Height 160 cm (5' 3 ) 04/08/2023 9:35 AM EDT Body Mass Index 26.57 04/08/2023 9:35 AM EDT Plan of Treatment Health Maintenance Due Date Last Done Comments [facility]-HIV Screening 1970 [facility]-Hepatitis C Screening 1970 [facility]-Infant/Child/Adol SDOH Screenings 1970 [facility]- SDOH Screenings 1988 [facility]-Adult SDOH Screenings 1988 [facility]-DTaP,Tdap,and Td Vaccines (1 - Tdap) 1989 [facility]-Hepatitis B Vaccines (1 of 3 - 19+ 3-dose series) 1989 CT Colonography 2015 Colonoscopy 2015 FIT-DNA 2015 FIT 2015 FOBT 2015 Sigmoidoscopy 2015 [facility]-Colorectal Cancer Screening 2015 [facility]-Pneumococcal Vaccine: 50+ Years (1 of 1 - PCV) 2020 [facility]-Zoster Vaccines (1 of 2) 2020 [facility]-Pap Smear 07/10/2022 07/10/2019, 05/20/2016 [facility]-Depression Screening 08/21/2022 08/21/2021, 08/02 [id number] Vaccine ( season) 2024 12/20/2020, 11/20/2020 [facility]-Cervical Cancer Screening 07/10/2024 [facility]-HPV/Cotest 07/10/2024 07/10/2019, 05/20/2016 [facility]-Influenza Vaccine (#1) 07/02/202508/17, 08/04/2022, 08/15/2020, Additional history exists [facility]-Breast Cancer Screening 04/17/202604/01, 04/08/2023, 04/07/2022, Additional history exists [facility]-Obesity Intervention Completed 08/21/2021, 08/02 HPV Vaccines Aged Out No longer eligi ble based on patient's age to complete this topic [facility]-HIB Vaccines Aged Out No longer e ligible based on patient's age to complete this topic [facility]-Hepatitis A Vaccines Aged Out No longer eligible based on patient's age to complete this topic [facility]-IPV Vaccines Aged Out No longer e ligible based on patient's age to complete this topic [facility]-Rotavirus Vaccines Aged Out No lo nger eligible based on patient's age to complete this topic Procedures Procedure Name Priority Date/Time Associated Diagnosis Comments MAMMOGRAPHY BREAST SCREENING TOMOSYNTHESIS BILATERAL Routine 04/17/2024 11:54 AM EDT Visit for screening mammogram CYTO DATA CONVERSION Routine 07/10/2019 12:00 AM EDT from Last 3 Months or Most Recently Relevant to Health Maintenance Results * Mammography Breast Screening Tomosynthesis Bilateral (04/17/2024 11:54 AM EDT) Anatomical Region Laterality Modality Breast Bilateral Mammography Impressions 04/21/2024 11:42 AM EDT No mammographic evidence of malignancy. BI-RADS CATEGORY: Overall: 2 - Benign RECOMMENDATION: - Routine Screening Mammogram in 1 Year. Patient Lifetime Risk Score of Breast Malignancy: A risk score has not been calculated for this patient. This risk assessment is calculated using the Rossy Risk Assessment model which may underestimate the lifetime risk of breast malignancy. COMMUNICATION: Computer-aided detection (CAD) and tomosynthesis were utilized by the radiologist in the interpretation of this examination. The results and recommendations will be sent to the patient in a printed lay language version of the imaging report. Narrative 04/21/2024 11:42 AM EDT EXAM: Mammography Breast Screening with Tomosynthesis REASON FOR EXAM: Screening Mammogram HISTORY: Patient is 53 y.o. Hormone history includes control. Surgical and procedural history include bilateral breast biopsy (benign). COMPARISON STUDIES: Compared to: 06/04/2020 Mammography Breast Diagnostic Tomosynthesis Bilateral at [facility] 06/04/2020 Mammography Stereotactic Breast Biopsy Right at [facility] 06/04/2020 Mammography Stereotactic Breast Biopsy Each Additional Historical at [facility] 06/04/2020 Mammography Breast Post Biopsy Clip Bilateral at [facility] 01/10/2021 Mammography Breast Diagnostic Tomosynthesis Bilateral at [facility] 04/07/2022 Mammography Breast Screening Tomosynthesis Bilateral at [facility] 04/08/2023 Mammography Breast Screening Tomosynthesis Bilateral at [facility] BREAST COMPOSITION: The breasts are heterogeneously dense, which may obscure small masses. FINDINGS: There are post-biopsy clip(s) present in the left breast. There is no evidence of suspicious masses, calcifications, or other abnormal findings. us Self Referral Mammogram IMG BI PROCEDURES Final Result * Cytology (07/10/2019 12:00 AM EDT) 07/10/2019 07/10/2019 3:3 9 PM EDT Narrative SUNQUEST - 07/14/2019 5:59 AM EDT [facility] MR #: [id number] [facility] [address], [place] [address] 1970 (Age: 48) FW Collect Date: 07/10/2019 00:00 Receipt Date: 07/10/2019 15:39 Page 1 DEPARTMENT OF PATHOLOGY AND LABORATORY MEDICINE CYTOPATHOLOGY REPORT Email: [email or web address] [id number] ATTENDING MD/Practitioner: Rupal Vasquez MD Service: [facility] Location: [facility] Reported: 07/14/2019 05:59 Collected: 07/10/2019 00:00 INTERPRETATION A. THIN PREP (CERVICAL/VAGINAL): NEGATIVE FOR INTRAEPITHELIAL LESION OR MALIGNANCY. SATISFACTORY FOR EVALUATION; ENDOCERVICAL/ TRANSFORMATION ZONE COMPONENT PRESENT. Slide scanned and imaged by [employer] Imaging System with manual review of all selected mckinnon. Electronically Signed Out By TREMAYNE Tirado(ASCP) TREMAYNE Tirado(ASCP) Cervical cytology is a screening test primarily for squamous cancers and precursors and has associated false negative and positive results. New technologies such as liquid based sampling may decrease but will not eliminate all false negative results. Regular screening and follow-up of unexplained clinical signs and symptoms are recommended to minimize false negative results. Please see the ASCCP website (www.asccp.org) for followup recommendations. If HPV testing was requested, correlation with the results is suggested (please call Microbiology at [phone] for results). CLINICAL INFORMATION: Menstrual History: Cyclic Date of Last Menstrual Period: {Not Provided} Other Clinical Conditions: If ASCUS and > 24 years of age, HPV/DNA testing requested. SPECIMEN DESCRIPTION: A: THIN PREP (CERVICAL/VAGINAL) THIN PREP PROCESS CELLULAR ENHANCEMENT ICD: F: A; RT IMAGE 35740 SNOMED CODES: A; T2K411 [id number] [id number] In cases where a pathologist has signed out the report, the service has been rendered in part by a resident. The signing pathologist has performed and is responsible for the reported pathologic evaluation. Isis Vasquez MD LAB PATHOLOGY ORDERABLES Viktoriya guevara Result SUNQUEST from Last 3 Months or Most Recently Relevant to Health Maintenance Insurance [employer]
--- OUTSIDE RECORDS SUMMARY | 2025-05-18 09:11 | XMS_ITS ---
Author Organization Unknown Medications Medication Instructions Effective Dates (start - stop) Status ethinyl estradiol 0.0025 MG / norethindrone acetate 0.5 MG Oral Tablet [Fyavolv] 6386-45-61A16:00:00.000+00 :00 - Completed citric acid 75 MG/ML / magne sium oxide 21.9 MG/ML / picosulfate sodium 0.0625 MG/ML Oral Solution [Clenpiq] 5824-16-81W37:00:00.000+00 :00 - Completed ergocalciferol 1.25 MG Oral Capsule 8052-87-12W37:00:00.000+00 :00 - Completed olanzapine 10 MG Oral Tablet 01-03-09:00:00.000+00 :00 - Completed olanzapine 10 MG Oral Tablet 12-31-08:00:00.000+00 :00 - Completed olanzapine 10 MG Oral Tablet 12-30-08:00:00.000+00 :00 - Completed olanzapine 10 MG Oral Tablet 12-13-00:00:00.000+00 :00 - Completed pantoprazole 40 MG Delayed R elease Oral Tablet 5755-50-73A05:00:00.000+00 :00 - Completed ofloxacin 3 MG/ML Ophthalmic Solution 6450-41-82B01:00:00.000+00 :00 - Completed 24 HR bupropion hydrochlorid e 150 MG Extended Release Oral Tablet 3302-70-87H42:00:00.000+0 0 :00 - Completed simvastatin 80 MG Oral Tablet 22-09-01:00:00.000+00 :00 - Completed simvastatin 80 MG Oral Tablet 22-06-02:00:00.000+00 :00 - Completed - 3596-96-91T89:00 :00.000+00 :00 - Completed {6 (azithromycin 250 MG Oral Tablet) } Pack 8439-96-36G42:00:00.000+00 :00 - Completed 24 HR dexmethylphenidate hydrochloride 30 MG Extended Release Oral Capsule 2680-95-33F67:00:00.000+00 :00 - Completed 24 HR dexmethylphenidate hydrochloride 30 MG Extended Release Oral Capsule 9117-26-07N29:00:00.000+00 :00 - Completed buspirone hydrochloride 10 M G Oral Tablet 5044-56-60M16:00:00.000+00 :00 - Completed buspirone hydrochloride 10 M G Oral Tablet 0267-25-55W39:00:00.000+00 :00 - Completed fluticasone propionate 0.05 MG/ACTUAT Metered Dose Nasal [place] 8837-48-81K67:00:00 .000+00 :00 - Completed 24 HR desvenlafaxine succina te 50 MG Extended Release Oral Tablet 5841-66-32E84:00:00.000+0 0 :00 - Completed 24 HR desvenlafaxine succina te 50 MG Extended Release Oral Tablet 0927-11-86A71:00:00.000+0 0 :00 - Completed 24 HR desvenlafaxine succina te 50 MG Extended Release Oral Tablet 9080-23-00F29:00:00.000+0 0 :00 - Completed 24 HR desvenlafaxine succina te 50 MG Extended Release Oral Tablet 9920-70-07Q84:00:00.000+0 0 :00 - Completed levothyroxine sodium 0.1 MG Oral Tablet 8470-51-33B94:00:00.000+00 :00 - Completed buspirone hydrochloride 10 M G Oral Tablet 9302-39-71M02:00:00.000+00 :00 - Completed escitalopram 20 MG Oral Tablet 2 620-47-83H20:00:00.000+00 :00 - Completed ibuprofen 800 MG Oral Tablet 12-11-19:00:00.000+00 :00 - Completed escitalopram 20 MG Oral Tablet 2 157-64-84S35:00:00.000+00 :00 - Completed escitalopram 20 MG Oral Tablet 2 873-69-65K06:00:00.000+00 :00 - Completed {28 (ethinyl estradiol 0.002 5 MG / norethindrone acetate 0.5 MG Oral Tablet) } Pack 1446-62-22M69:00:00.000+00 :00 - Completed {28 (ethinyl estradiol 0.002 5 MG / norethindrone acetate 0.5 MG Oral Tablet) } Pack 8974-73-67L88:00:00.000+00 :00 - Completed rosuvastatin calcium 20 MG O ral Tablet 1620-13-52R19:00:00.000+00 :00 - Completed rosuvastatin calcium 20 MG O ral Tablet 1130-70-75H98:00:00.000+00 :00 - Completed rosuvastatin calcium 20 MG O ral Tablet 0057-79-77B21:00:00.000+00 :00 - Completed ondansetron 4 MG Disintegrat ing Oral Tablet 6116-03-94K22:00:00.000+00 :00 - Completed {21 (methylprednisolone 4 MG Oral Tablet) } Pack 7355-38-85I90:00:00.000+00 :00 - Completed pantoprazole 40 MG Delayed R elease Oral Tablet 5000-84-44H92:00:00.000+00 :00 - Completed benzonatate 100 MG Oral Capsule 6156-41-15Z56:00:00.000+00 :00 - Completed lisdexamfetamine dimesylate 50 MG Oral Capsule [Vyvanse] 8672-88-87M61:00:00.000+00 :00 - Completed lisdexamfetamine dimesylate 50 MG Oral Capsule [Vyvanse] 7687-68-58J07:00:00.000+00 :00 - Completed lisdexamfetamine dimesylate 50 MG Oral Capsule [Vyvanse] 0287-97-83W31:00:00.000+00 :00 - Completed lisdexamfetamine dimesylate 50 MG Oral Capsule [Vyvanse] 8045-14-81P91:00:00.000+00 :00 - Completed lisdexamfetamine dimesylate 50 MG Oral Capsule [Vyvanse] 3876-16-88N86:00:00.000+00 :00 - Completed lisdexamfetamine dimesylate 50 MG Oral Capsule [Vyvanse] 3807-61-25I78:00:00.000+00 :00 - Completed lisdexamfetamine dimesylate 50 MG Oral Capsule [Vyvanse] 4262-12-55Y74:00:00.000+00 :00 - Completed lisdexamfetamine dimesylate 50 MG Oral Capsule [Vyvanse] 2894-37-88G30:00:00.000+00 :00 - Completed lisdexamfetamine dimesylate 50 MG Oral Capsule [Vyvanse] 3560-25-87X48:00:00.000+00 :00 - Completed - 8099-93-83G67:00 :00.000+00 :00 - Completed levothyroxine sodium 0.1 MG Oral Tablet 1298-03-33I41:00:00.000+00 :00 - Completed levothyroxine sodium 0.1 MG Oral Tablet 2469-13-12Z62:00:00.000+00 :00 - Completed olanzapine 10 MG Oral Tablet 12-11-17:00:00.000+00 :00 - Completed ergocalciferol 1.25 MG Oral Capsule 8380-60-00L11:00:00.000+00 :00 - Completed ergocalciferol 1.25 MG Oral Capsule 0457-98-22S04:00:00.000+00 :00 - Completed Patient Care team information Name Category Status Period Participants - - Proposed period not known -
--- NOTE | 2025-05-18 09:12 | MM_ITS ---
PROCEDURE INFORMATION: Exam: MG Bilateral Screening 3D Mammography Exam date and time: 05/18/2025 10:44 AM Age: 54 years old Clinical indication: Screening examination TECHNIQUE: Imaging protocol: Bilateral Screening tomosynthesis and 2D mammography including computer-aided detection (CAD) when performed. COMPARISON: 1. MG MAMMOGRAPHY BREAST SCREENING TOMOSYNTHESIS BILATERAL 04/17/2024 11:49 AM 2. MG MAMMOGRAPHY BREAST SCREENING TOMOSYNTHESIS BILATERAL 04/08/2023 9:38 AM FINDINGS: MAMMOGRAPHY: Breast composition: There are scattered areas of fibroglandular density. Mass: No suspicious masses. Architectural distortion: None. Calcifications: No suspicious calcifications. Asymmetric density: None. Skin thickening: None. Axillary adenopathy: None. IMPRESSION: No mammographic evidence of malignancy. Annual screening is recommended unless otherwise clinically indicated. ASSESSMENT: BI-RADS Category 1: Negative.
== END 2025-05-18 23:59 | disposition home or self-care (01) ==
LOC: RAD 09:09
PROVIDERS: PCP Nurse Practitioner Family; Visit Provider Nurse Practitioner Family
DX: Z12.31 Encounter for screening mammogram for malignant neoplasm of breast (principal); R92.323 Mammographic fibroglandular density, bilateral breasts; R74.8 Abnormal levels of other serum enzymes
CPT/HCPCS: 76700; 77063; 77067

== ENCOUNTER 2025-08-01 08:30 | Outpatient (CLI) | payer BC, SELFPAY ==
--- OUTSIDE RECORDS SUMMARY | 2025-07-31 04:33 | XMS_ITS | Continuity of Care Document ---
Author Organization [facility] Address [address] [place] [address] Phone Care Team Providers Care Wrist Liner Name Role Phone Jacinto MSN, PAINTINGS CONSERVATOR, Emi Unavailable Unavai lable Allergies, Adverse Reactions, [...] 20 MG - Active Procedures Procedure Date Methylprednisolone injection OFFICE/OUTPATIENT VISIT, [facility] Advance Directives Directive Yes / No Effective Date File Name No Information Encounters Encounter Description Practice Location Reason(s) For Visit Diagnoses Date Provider OFFICE/OUTPA TIENT VISIT, [facility], [address] [place] [address], [facility], tel:[phone] [facility] [place] Abdominal pain (chief complaint)C hest Congestion (chief complaint) CoughAbdominal painBody mass index [BMI] 29.0-29.9, adult Sep-3 5 Casey Emi. [address] [place], [place], [id number] , [place]. tel:[phone] [facility], [address] [place] [address], [facility], tel:[phone] [facility] [place] No Information 5 Casey Emi. [address] [place], [place], [id number] , [place]. tel:[phone] [facility], [address] [place] [address], [facility], tel:[phone] [facility] [place] f/u labs (chief complaint) Abnormal level of alkaline phosphataseEssential (primary) hypertensionHyperlipidem iaHypothyroidism, unspecifiedPrediabetesAc samantha upper respiratory infection, unspecifiedBody mass index [BMI] 28.0-28.9, adult Sep-1 0- 5 Casey Emi. [address] [place], [place], [address] [place] [address] , . tel: [phone] [facility], [address] [place] [address], [facility], tel:[phone] [facility] [place] cough/sore throat (chief complaint)b loating (chief complaint)a nxiety/depr ession (chief complaint) Hypothyroidism, unspecifiedIrritable bowel syndromeGERD disease w/ esophagitis, w/o bleedingMenopausePrediab etesMajor depressionStreptococcal sore throatNausea w/o vomitingMotion sickness, sequelaBody mass index [BMI] 27.0-27.9, adult Aug- 5 Casey Emi. [address] [place], [place], [address] [place] [address] , . tel: [phone] [facility], [address] [place] [address], [facility], tel:[phone] [facility] [place] No Information 5 Casey Emi. [address] [place] [address], [address] [place] [address] , . tel: [phone] [facility], [address] [place] [address], [facility], tel:[phone] [facility] [place] No Information 5 Casey Emi. [address] [place] [address], [address] [place] [address] , . tel: [phone] [facility], [address] [place] [address], [facility], tel:[phone] [facility] [place] No Information 0 5 Casey Emi. [address] [place], [place], [id number] , [place]. tel: [phone] [facility], [address] [place] [address], [facility], tel:[phone] [facility] [place] No Information 5 Casey Emi. [address] [place], [place], [id number] , [place]. tel: [phone] [facility], [address] [place] [address], [facility], tel:[phone] [facility] [place] Encounter for screening mammogram for malignant neoplasm of breast 5 Casey Emi. [address] [place], [place], [address] , [place]. tel: [phone] [facility], [address] [place] [address], [facility], tel:[phone] [facility] [place] Follow up on labs (chief complaint) Nicotine dependence, cigarettes, w/ other nicotine-induced disorderPrediabetesMajor depressionHypothyroidism , unspecifiedHyperlipidemi aEssential (primary) hypertensionAbnormal level of alkaline phosphataseBody mass index [BMI] 26.0-26.9, adult 5 Casey Emi. [address] [place], [place], [address] , [place]. tel: [phone] [facility], [address] [place] [address], [facility], [place] tel:[phone] [facility] [place] No Information 5 Casey Emi. [address] [place], [place], [address] , [place]. tel: [phone] [facility], [address] [place] [address], [facility], tel:[phone] [facility] [place] Chest Congestion (chief complaint) Acute upper respiratory infection, unspecifiedBody mass index [BMI] 27.0-27.9, adult 5 Casey Emi. [address] [place], [place], [address] , [place]. tel: [phone] [facility], [address] [place] [address], [facility], tel:[phone] [facility] [place] FASTING LABS (chief complaint) Essential (primary) hypertension 5 Casey Emi. [address] [place], [place], [address] , [place]. tel: [phone] [facility], [address] [place] [address], [facility], tel:[phone] [facility] [place] Depression Screening (chief complaint)P rapare (chief complaint)c hest congestion (chief complaint)t [facility] (chief complaint) Encounter for screening for depressionAcute upper respiratory infection, unspecifiedBody mass index [BMI] 28.0-28.9, adultEssential (primary) hypertensionNicotine dependence, cigarettes, w/ other nicotine-induced disorder 5 Casey Emi. [address] [place], [place], [address] , [place]. tel: [phone] [facility], [address] [place] [address], [facility], [place] tel:[phone] [facility] [place] Acute upper respiratory infection, unspecified 5 Casey Emi. [address] [place], [place], [address] , [place]. tel: [phone] [facility], [address] [place] [address], [facility], tel:[phone] [facility] [place] dysuria (chief complaint) DysuriaBody mass index [BMI] 28.0-28.9, adult Mar-0 -202 5 Casey Emi. [address] [place], [place], [address] , [place]. tel: [phone] [facility], [address] [place] [address], [facility], tel:[phone] [facility] [place] urinary urgency (chief complaint)t [facility]health (chief complaint) Dysuria Fe0 5- 5 Casey Emi. [address] [place], [place], [address] , [place]. tel: [phone] [facility], [address] [place] [address], [facility], tel:[phone] [facility] [place] LABS (chief complaint) Hypothyroidism, unspecified 3 4 Casey Emi. [address] [place], [place], [address] [place] [address] , [place]. tel: [phone] [facility], [address] [place] [address], [facility], tel:[phone] [facility] [place] FOLLOW UP ON LABS (chief complaint) Body mass index [BMI] 27.0-27.9, adultEssential (primary) hypertensionMenopauseNic otine dependence, cigarettes, w/ other nicotine-induced disorderIrritable bowel syndrome - 4 Casey Emi. [address] [place], [place], [address] , [place]. tel:[phone] [facility], [address] [place] [address], [facility], [place] tel:[phone] [facility] [place] lab collection (chief complaint) Emotional lability 4 Casey Emi. [address] [place], [place], [address] , [place]. tel: [phone] [facility], [address] [place] [address], [facility], [place] tel:[phone] [facility] [place] No Information 4 Casey Emi. [address] [place], [place], [address] , [place]. tel: [phone] [facility], [address] [place] [address], [facility], tel:[phone] [facility] [place] FASTING LABS (chief complaint)F ROBERTA VACCINE (chief complaint) Essential (primary) hypertension 4 Casey Emi. [address] [place], [place], [address] , [place]. tel: [phone] [facility], [address] [place] [address], [facility], tel:[phone] [facility] [place] follow up on labs (chief complaint) Hypothyroidism, unspecifiedHypercalcemia Abnormal level of alkaline phosphataseBody mass index [BMI] 26.0-26.9, adult 4 Casey Emi. [address] [place], [place], [address] , [place]. tel: [phone] [facility], [address] [place] [address], [facility], tel:[phone] [facility] [place] lab collection (chief complaint) DysuriaEssential (primary) hypertension 4 Casey Emi. [address] [place], [place], [address] , [place]. tel: [phone] [facility], [address] [place] [address], [facility], tel:[phone] [facility] [place] possible UTI/Yeast (chief complaint) DysuriaBody mass index [BMI] 25.0-25.9, adultUTIVaginitis 4 Casey Emi. [address] [place], [place], [address] , [place]. tel:[phone] [facility], [address] [place] [address], [facility], tel:[phone] [facility] [place] Spondylolisthesis, lumbar region 4 Casey Emi. [address] [place], [place], [address] , [place]. tel: [phone] [facility], [address] [place] [address], [facility], [place] tel:[phone] [facility] [place] [facility] (chief complaint) Body mass index [BMI] 26.0-26.9, adultEncntr for linen attendant exam (general) (routine) w/o abn findingsEncntr screen for infections w sexl mode of transmissLow back pain, unspecified 4 Casey Emi. [address] [place], [place], [address] , [place]. tel: [phone] [facility], [address] [place] [address], [facility], [place] tel:[phone] [facility] [place] follow up labs (chief complaint) Body mass index [BMI] 27.0-27.9, adultAnxiety disorder, unspecifiedEssential (primary) hypertensionHyperlipidem iaHypothyroidism, unspecifiedNicotine dependence, cigarettes, w/ other nicotine-induced disorderPrediabetes 4 Casey Emi. [address] [place], [place], [address] , [place]. tel: [phone] [facility], [address] [place] [address], [address], [place] tel:[phone] [facility] [place] sore throat (chief complaint) Essential (primary) hypertensionBody mass index [BMI] 27.0-27.9, adultAcute pharyngitisOtitis media, unspecified, right ear Jan- 4 Casey Emi. [address] [place], [place], [address] , [place]. tel:[phone] [facility], [address] [place] [address], [facility], tel:[phone] [facility] [place] f/u depression/ ear pain (chief complaint) Other seasonal allergic rhinitisMood disorderMajor depressionGERD disease w/ esophagitis, w/o bleedingEncounter for screening for depressionEncounter for screening examination for other mental health and behavioral disorders 4 Casey Emi. [address] [place], [place], [address] , [place]. tel: [phone] [facility], [address] [place] [address], [facility], tel:[phone] [facility] [place] COVID TEST (chief complaint) Encounter for screening for [id number] 4 Casey Emi. [address] [place], [place], [address] , [place]. tel:[phone] [facility], [address] [place] [address], [facility], tel:[phone] [facility] [place] fasting lab collection (chief complaint) Essential (primary) hypertensionHyperlipidem iaBilateral pink eye 3 Casey Emi. [address] [place], [place], [address] , [place]. tel: [phone] [facility], [address] [place] [address], [facility], [place] tel:[phone] [facility] [place] sore throat (chief complaint) Acute pharyngitisBody mass index [BMI] 27.0-27.9, adult 3 Casey Emi. [address] [place], [place], [address] , [place]. tel:[phone] [facility], [address] [place] [address], [facility], tel:[phone] [facility] [place] Anxiety (chief complaint) Hypothyroidism, unspecifiedBody mass index [BMI] 27.0-27.9, adultAnxiety disorder, unspecifiedAD/HD, predominantly inattentive presentationMood disorderEssential (primary) hypertensionNicotine dependence, cigarettes, w/ other nicotine-induced disorder 3 Casey Emi. [address] [place], [place], [address] , [place]. tel:[phone] [facility], [address] [place] [address], [facility], tel:[phone] [facility] [place] Medication (chief complaint) AD/HD, predominantly inattentive presentationBody mass index [BMI] 27.0-27.9, adultAnxiety disorder, unspecifiedEmotional labilityNicotine dependence, cigarettes, w/ other nicotine-induced disorderHypothyroidism 3 Casey Emi. [address] [place], [place], [address] , [place]. tel: [phone] [facility], [address] [place] [address], [facility], tel:[phone] [facility] [place] Fasting Labs (chief complaint) Essential (primary) hypertension 3 Casey Emi. [address] [place], [place], [address] , [place]. tel:[phone] [facility], [address] [place] [address], [facility], [place] tel:[phone] [facility] [place] Follow up on Labs (chief complaint) Anxiety disorder, unspecifiedEmotional labilityEssential (primary) hypertensionHyperlipidem iaHypothyroidismMood disorderBody mass index [BMI] 27.0-27.9, adult Apr- 3 Casey Emi. [address] [place], [place], [address] , [place]. tel:[phone] [facility], [address] [place] [address], [facility], tel:[phone] [facility] [place] lab collection (chief complaint) Essential (primary) hypertension 3 Casey Emi. [address] [place], [place], [address] , [place]. tel: [phone] [facility], [address] [place] [address], [facility], tel:[phone] [facility] [place] follow up meds (chief complaint) Body mass index [BMI] 28.0-28.9, adultAnxiety disorder, unspecified 3 Casey Emi. [address] [place], [place], [address] , [place]. tel:[phone] [facility], [address] [place] [address], [facility], tel:[phone] [facility] [place] follow up on meds (chief complaint) Body mass index [BMI] 28.0-28.9, adultAnxiety disorder, unspecifiedMenopause 3 Casey Emi. [address] [place], [place], [address] , [place]. tel: [phone] [facility], [address] [place] [address], [facility], tel:[phone] [facility] menopause (chief complaint) Anxiety disorder, unspecifiedEmotional labilityEssential (primary) hypertensionHypothyroidi smMood disorderNicotine dependence, cigarettes, w/ other nicotine-induced disorderUnspecified menopausal and perimenopausal disorder 3 Casey Emi. [address] [place], [place], [address] , [place]. tel:[phone] [facility], [address] [place] [address], [facility], tel:[phone] [facility] follow up (chief complaint) Body mass index [BMI] 29.0-29.9, adultAcute upper respiratory infection, unspecifiedHypothyroidis mHyperlipidemiaEssential (primary) hypertension 3 Casey Emi. [address] [place] [address], [id number] , [place]. tel: [phone] [facility], [address] [place] [address], [facility], tel:[phone] [facility] follow up meds (chief complaint) Body mass index [BMI] 29.0-29.9, adultAnxiety disorder, unspecifiedMood disorderHypothyroidismNi cotine dependence, cigarettes, w/ other nicotine-induced disorder 3 Casey Emi. [address] [place] [address], [id number] , [place]. tel: [phone] [facility], [address] [place] [address], [facility], tel:[phone] [facility] GERD (chief complaint) GERD disease w/ esophagitis, w/o bleeding 3 Casey Emi. [address] [place] [address], [id number] , [place]. tel: [phone] [facility], [address] [place] [address], [facility], tel:[phone] [facility] follow up labs (chief complaint) Anxiety disorder, unspecifiedHypothyroidis mHyperlipidemiaGERD disease w/ esophagitis, w/o bleedingNicotine dependence, cigarettes, w/ other nicotine-induced disorderElevated blood-pressure reading w/o diagnosis of HTNBody mass index [BMI] 29.0-29.9, adult Oct- 2 Casey Emi. [address] [place], [place], [address] , [place]. tel:[phone] [facility], [address] [place] [address], [facility], tel:[phone] [facility] [place] follow up medication (chief complaint) ADHDAnxiety disorder, unspecifiedHypothyroidis mMood disorderMixed irritable bowel syndromeChanges in skin texture 2 Casey Emi. [address] [place], [place], [address] , [place]. tel: [phone] [facility], [address] [place] [address], [facility], [place] tel:[phone] [facility] [place] anxiety (chief complaint) Anxiety disorder, unspecifiedHypothyroidis mADHD 2 Casey Emi. [address] [place], [place], [address] , [place]. tel: [phone] [facility], [address] [place] [address], [facility], [place] tel:[phone] [facility] [place] follow up labs (chief complaint) Anxiety disorder, unspecifiedHypothyroidis mHyperlipidemiaMood disorderOtalgia, right ear 2 Casey Emi. [address] [place], [place], [address] , [place]. tel: [phone] [facility], [address] [place] [address], [facility], [place] tel:[phone] [facility] [place] NEW PATIENT (chief complaint)G eneSight Testing (chief complaint) Encounter for screening for depressionEncounter for screening examination for other mental health and behavioral disordersEncounter for screening for diseases of the blood and blood-forming organs and certain disorders involving the immune mechanismAnxiety disorder, unspecifiedEmotional labilityFatigueEncounter for immunization 2 Jacinto Middleton. [address] [place], [address] , . tel:[phone] Family History Family Member Type Diagnosis Age [...] Insurance type Covered democrat ID Authoriza tion(s) [employer] [facility] [id number] [employer] [id number] [employer] [id number] Social History Type Description Quantity Date [...] Vitamin B12. Due on 026 due Goal HPV testing. Due on due [...] Lipid panel. Due on 026 due Goal Urinalysis due Goal Lifestyle education [...] screening due Goal Vitamin B12. Due on 026 due Goal Follow up Plan f or [...] Vitamin B12. Due on due Goal Obtain blood Pre [...] panel. Due on due Goal Unhealthy drug use [...] Screening due Goal Influenza vaccine. Due on Oc due Goal HPV testing. Due on 029 due Goal Hematocrit/Hemog lobin. Due on due [...] Vitamin B12. Due on 026 due Goal Unhealthy drug [...] Influenza vaccine. Due on due Goal Obtain blood Pre [...] screen due Goal Diabetes screening. Due on due [...] Goal Diabetes screening. Due on due Goal Influenza vaccine. Due on Oc due Goal Lipid panel. Due on due [...] on 033 due Goal Urinalysis due Goal Lifestyle education [...] Vitamin B12. Due on 025 due Goal Urinalysis due Goal Obtain Height, [...] HPV testing. Due on 029 due Goal TSH. Due on due Goal Mammogram. Due on due Goal PAP. Due on due Goal HPV. Due on due Goal Depression scree cinda. Due on due Goal Diabetes screening. Due on A due Goal Tobacco Use Scre ening. Due on due Goal HIV screen due Goal CMP. Due on due Goal Hepatitis C Screening due Goal Tobacco Use Cess ation Counseling. Due on due Goal Vitamin B12. Due on 025 due Goal Vitamin D. Due on 5 due Goal Generalized Anxi ety Disorder - 7 (RICHA-7). Due on due Goal Tobacco Use Cess ation Counseling. Due on due Goal Obtain blood Pre ssure. Due on due Goal Urinalysis due Goal Follow up Plan f or abnormal BMI (Less than 18.5, greater than 25). Due on due Goal Hepatitis C Screening due Goal ECG. Due on due Goal HPV. Due on due Goal Mammogram. Due on 3 due Goal HIV screen due Goal Diabetes screening. Due on A due Goal PAP. Due on due Goal [...] Goal Influenza vaccine. Due on due Goal Pap/HPV testing. Due on due Goal Generalized Anxi ety Disorder - 7 (RICHA-7). Due on due Goal Vitamin D. Due on due Goal Vitamin B12. Due on 025 due Goal Lifestyle education regardin g diet completed Goal HIV screen due Goal Tobacco Use Scre ening. Due on due Goal Urinalysis due Goal Colonoscopy. Due on due Goal Unhealthy drug use [...] Oc due Goal Diabetes screening. Due on A due Goal Pap/HPV testing. Due on due Goal Tobacco Use Cess ation Counseling. Due on due Goal TSH. Due on due Goal Follow up Plan f or abnormal BMI (Less than 18.5, greater than 25). Due on due Goal Vitamin D. Due on 5 due Goal CBC. Due on due Goal Mammogram. Due on 3 due Goal Drug Abuse Scree cinda Test (DAST-10). Due on due Goal Lipid panel. Due on 029 due Goal Vitamin B12. Due on 025 due Goal HPV. Due on due Goal Depression scree cinda. Due on due Goal Obtain blood Pre ssure. Due on due Goal ECG. Due on due Goal Urinalysis due Goal PAP. Due on due Goal Vitamin B12. Due on 025 due Goal Generalized Anxi ety Disorder - 7 (RICHA-7). Due on due Goal Influenza vaccine. Due on Oc due Goal CMP. Due on due Goal Follow up Plan f or abnormal BMI (Less than 18.5, greater than 25). Due on due Goal Drug Abuse Scree cinda Test (DAST-10). Due on due Goal HPV. Due on due Goal HPV testing. Due on due Goal Colonoscopy. Due on 033 due Goal HIV screen due Goal Pap/HPV testing. Due on due Goal Obtain Height, W eight, and BMI. Due on due Goal Unhealthy drug use screening due Goal TSH. Due on due Goal Tobacco Use Scre ening. Due on due Goal Hepatitis C Screening due Goal Diabetes screening. Due on A due Goal Tobacco Use Cess ation Counseling. Due on due Goal Mammogram. Due on 3 due Goal Vitamin D. Due on 5 due Goal CBC. Due on due Goal Depression scree cinda. Due on due Goal Lipid panel. Due on due Goal ECG. Due on due Goal Obtain blood Pre ssure. Due on due Goal HPV. Due on due Goal Drug Abuse Scree cinda Test (DAST-10). Due on due Goal Generalized Anxi ety Disorder - 7 (RICHA-7). Due on due Goal Vitamin B12. Due on due Goal Urinalysis due Goal Lipid panel. Due on due [...] Goal HPV testing. Due on due Goal Colonoscopy. Due on due Goal TSH. Due on due Goal Pap/HPV testing. Due on due Goal HIV screen due Goal Tobacco Use Scre ening. Due on due Goal CBC. Due on due Goal Vitamin D. Due on due Goal Tobacco Use Cess ation Counseling. Due on due Goal Mammogram. Due on 3 due Goal Diabetes screening. Due on A due Goal Follow up Plan f or abnormal BMI (Less than 18.5, greater than 25). Due on due Goal Urinalysis due Goal HPV testing. Due on due Goal HPV. Due on due Goal ECG. Due on due Goal Tobacco Use Cess ation Counseling. Due on due Goal HIV screen due Goal Colonoscopy. Due on 033 due Goal Lipid panel. Due on due Goal Obtain blood Pre ssure. Due on due Goal Vitamin B12. Due on 025 due Goal Vitamin D. Due on due Goal CMP. Due on due Goal Influenza vaccine. Due on Oc due Goal Pap/HPV testing. Due on due Goal Hepatitis C Screening due Goal Generalized Anxi ety Disorder - 7 (RICHA-7). Due on due Goal Depression scree cinda. Due on due Goal Drug Abuse Scree [...] Goal Mammogram. Due on 3 due Goal Lifestyle education regardin g diet completed Goal Urinalysis due Goal PAP. Due on due Goal CBC. Due on due Goal CMP. Due on due Goal Colonoscopy. Due on 033 due Goal ECG. Due on due Goal Vitamin B12. Due on 025 due Goal Obtain blood Pre ssure. Due on due Goal Lipid panel. Due on 029 due Goal Tobacco Use Cess ation Counseling. Due on due Goal HIV screen due Goal Mammogram. Due on 3 due Goal Vitamin D. Due on 5 due Goal Influenza vaccine. Due on due Goal Follow up Plan f or abnormal BMI (Less than 18.5, greater than 25). Due on due Goal HPV. Due on due Goal HPV testing. Due on 029 due Goal Drug Abuse Scree cinda Test (DAST-10). Due on due Goal Unhealthy drug use screening due Goal Generalized Anxi ety Disorder - 7 (RICHA-7). Due on due Goal Depression scree cinda. Due on due Goal TSH. Due on due Goal Hepatitis C Screening due Goal Pap/HPV testing. Due on due Goal Diabetes screening. Due on A due Goal Obtain Height, W eight, and BMI. Due on due Goal Tobacco Use Scre ening. Due on due Goal ECG. Due on due Goal Colonoscopy. Due on 033 due Goal Vitamin B12. Due on 025 due Goal HPV testing. Due on 029 due Goal HPV. Due on due Goal Diabetes screening. Due on A due Goal Hepatitis C Screening due Goal Urinalysis due Goal Influenza vaccine. Due on due Goal HIV screen due Goal Lipid panel. Due on 028 due Goal CMP. Due on due Goal Vitamin D. Due on due Goal Generalized Anxi ety Disorder - 7 (RICHA-7). Due on due Goal Unhealthy drug use screening due Goal CBC. Due on due Goal Pap/HPV testing. Due on due Goal Depression scree cinda. Due on due Goal Obtain blood Pre ssure. Due on due Goal Obtain Height, W eight, and BMI. Due on due Goal PAP. Due on [...] on due Goal HIV screen due Goal Urinalysis. Due on 24 due Goal Colonoscopy. Due on 033 due Goal Follow up Plan f or abnormal BMI (Less than 18.5, greater than 25). Due on due Goal CBC. Due on due Goal ECG. Due on due Goal Obtain blood Pre ssure. Due on due Goal Hepatitis C Screening due Goal Unhealthy drug use screening due Goal Influenza vaccine. Due on Oc due Goal HPV testing. Due on 029 due Goal HPV. Due on due Goal Pap/HPV testing. Due on due Goal Lipid panel. Due on 028 due Goal Diabetes screening. Due on A due Goal Generalized Anxi ety Disorder - 7 (RICHA-7). Due on due Goal CMP. Due on due Goal Vitamin D. Due on due Goal Vitamin B12. Due on 025 due Goal Drug Abuse Scree cinda Test (DAST-10). Due on due Goal Mammogram. Due on 3 due Goal TSH. Due on due Goal [...] A due Goal Vitamin D. Due on 5 due Goal Depression scree cinda. Due on [...] Urinalysis. Due on due Goal Tobacco Use Cess [...] Goal Mammogram. Due on 3 due Goal TSH. Due on due Goal [...] Vitamin B12. Due on due Goal Obtain blood Pre ssure. Due on due Goal Unhealthy drug use screening due Goal Pap/HPV testing. Due on due Goal HPV. Due on due Goal CMP. Due on due Goal ECG. Due on due Goal Colonoscopy. Due on due Goal Tobacco Use Cess [...] C Screening due Goal Mammogram. Due on due Goal ECG. Due on due Goal Tobacco Use Scre ening. Due on due Goal Urinalysis. Due on due Goal Lifestyle education regardin g diet completed Goal Tobacco cessation counseling completed Goal ECG. Due on due Goal Tobacco Use Scre ening. Due on due Goal Diabetes screening. Due on due Goal HIV screen. Due on due Goal Unhealthy drug u se screening. Due on due Goal Lipid panel. Due on 023 due Goal Urinalysis. Due on due Goal [...] Goal Lipid panel. Due on due Goal PAP. Due on [...] due Goal CBC. Due on due Goal ECG. Due on due Goal Obtain Height, W eight, and BMI. Due on due Goal Influenza vaccine. Due on due Goal CMP. Due on due Goal HIV screen. Due on due Goal Pap/HPV testing. Due [...] u se screening. Due on due Goal Pap/HPV testing. Due on due Goal HPV. Due on due Goal ECG. Due on due Goal Obtain blood Pre ssure. Due on due Goal Drug Abuse Scree cinda Test (DAST-10). Due on due Goal Unhealthy drug u se screening. Due on due Goal Urinalysis. Due on due Goal TSH. Due on due Goal CT-Colonography. Due on due Goal Follow up Plan f or abnormal BMI (Less than 18.5, greater than 25). Due on due Goal HPV testing. Due on due Goal Obtain Height, W eight, and BMI. Due on due Goal FOBT. Due on due Goal CBC. Due on due Goal FIT-DNA. Due on due Goal CMP. Due on due Goal Tobacco Use Cess ation Counseling. Due on due Goal Hepatitis C Scre ening. Due on due Goal Depression scree cinda. Due on due Goal Tobacco Use Scre ening. Due on due Goal Lipid panel. Due on due Goal Vitamin B12. Due on due Goal Mammogram. Due on due Goal FIT. Due on due Goal PAP. Due on due Goal Colonoscopy. Due on due Goal Diabetes screening. Due on due Goal Generalized Anxi ety Disorder - 7 (RICHA-7). Due on due Goal Vitamin D. Due on due Goal HIV screen. Due on due Goal Influenza vaccine. Due on Oc due Goal Lifestyle education regardin g diet completed Goal Lifestyle education regardin g diet completed Goal ECG. Due on due Goal Obtain blood Pre ssure. Due on due Goal Vitamin B12. Due on due Goal Pap/HPV testing. Due on due Goal Urinalysis. Due on due Goal Depression scree cinda. Due on due Goal Influenza vaccine. Due on Oc due Goal HPV testing. Due on due Goal HPV. Due on due Goal FOBT. Due on due Goal Generalized Anxi ety Disorder - 7 (RICHA-7). Due on due Goal PAP. Due on due Goal Unhealthy drug u se screening. Due on due Goal Drug Abuse Scree cinda Test (DAST-10). Due on due Goal FIT. Due on due Goal Mammogram. Due on due Goal CBC. Due on due Goal Tobacco Use Cess ation Counseling. Due on due Goal Follow up Plan f or abnormal BMI (Less than 18.5, greater than 25). Due on due Goal CT-Colonography. Due on due Goal CMP. Due on due Goal FIT-DNA. Due on due Goal Hepatitis C Scre ening. Due on due Goal Colonoscopy. Due on due Goal Obtain Height, W eight, and BMI. Due on due Goal Vitamin D. Due on due Goal TSH. Due on due Goal Lipid panel. Due on due Goal Diabetes screening. Due on due Goal HIV screen. Due on due Goal Tobacco Use Scre ening. Due on due Goal Dietary manageme nt [...] D. Due on due Goal Depression scree cnida. Due on due Goal Generalized Anxi ety Disorder - 7 (RIHCA-7). Due on due Goal HPV testing. Due [...] Lifestyle education regardin g diet completed Goal CBC. Due on due Goal Drug Abuse Scree cinda Test (DAST-10). Due on due Goal Mammogram. Due on due Goal PAP. Due on due Goal Tobacco Use Scre ening. Due on due Goal Influenza vaccine. Due on Oc due Goal Tobacco Use Cess ation Counseling. Due on due Goal Diabetes screening. Due on N due Goal Follow up Plan f or [...] (RICHA-7). Due on due Goal Hepatitis C Scre ening. Due on due Goal Depression scree cinda. Due on due Goal Vitamin B12. Due on due Goal FOBT. Due on due Goal HIV screen. Due on due Goal TSH. Due on [...] Goal Influenza vaccine. Due on due Goal Follow up Plan [...] CHEST 2 VIEWS Bilateral lungs Appointment date/timeframe: 1 Day ordered Referral Ordered: CT ABDOMEN W/O & W/DYE Left abdomen Appointment date/timeframe: 1 Week ordered Referral Referred To: [facility] Ordered: Referrals: Gastroenterology. [facility]. Location: [place]. Evaluate and treat. Diagnostic testing Appointment date/timeframe: 09/10/2025 ordered Referral Ordered: SCR MAMMO BI INCL CAD Bilateral breast Appointment date/timeframe: 05/18/2025 ordered Referral Ordered: US EXAM, ABDOM, COMPLETE Right abdomen Appointment date/timeframe: 05/18/2025 ordered Referral Ordered: Referrals: Orthopedic Surgery. Evaluate and treat Appointment date/timeframe: 06/20/2024 ordered Referral Ordered: X-RAY EXAM OF LOWER SPINE Bilateral back Appointment date/timeframe: 1 Day ordered Referral Referred To: [facility] Latasha lundberg Ordered: Referrals: Psychiatry. [facility] Latasha lundberg. Location: [place]. Consult Appointment date/timeframe: 1 Day ordered [facility]: [facility] Location: [place], [place]. Evaluate and treat Appointment date/timeframe: 12/28/2022 ordered Referral Ordered: referred to Gastroenterology ordered Referral Referred To: [facility] Ordered: Referrals: Dermatology. [facility]. Location: [place]. Evaluate and treat Appointment date/timeframe: 11/03/2022 ordered Appointment Arcelia Vivar - Fasting Labs ASHRAF KED Future Order: Lab Order Comp. Me tabolic Panel (14) ([id number]), Scheduled for: Ordered Future Order: Lab Order T3 Uptak e ([id number]), Scheduled for: Ordered Future Order: Lab Order TSH Rfx on Abnormal to Free T4 ([id number]), Scheduled for: Ordered Future Order: Lab Order PTH, Int act ([id number]), Scheduled for: Ordered Future Order: Lab Order Hemoglob in A1c ([id number]), Scheduled for: Ordered Future Order: Lab Order CBC With Differential/Platelet ([id number]), Scheduled for: Ordered Future Order: Lab Order Lipid Pa yeny ([id number]), Scheduled for: Ordered Future Order: Lab Order URINALYS IS, AUTO, W/O SCOPE ([id number]), Collected on: Ordered Future Order: Lab Order CBC (INC LUDES DIFF/PLT) ([id number]), Scheduled for: Ordered Future Order: Lab Order COMPREHE NSIVE METABOLIC PANEL ([id number]), Scheduled for: Ordered Future Order: Lab Order HEMOGLOB IN A1C ([id number]), Scheduled for: Ordered Future Order: Lab Order LIPID PA YNEY ([id number]), Scheduled for: Ordered Future Order: Lab Order TSH W/RE FLEX TO FREE T4 ([id number]), Scheduled for: Ordered Future Order: Lab Order VITAMIN D,25-OH,TOTAL,IA ([id number]), Scheduled for: Ordered Future Order: Lab Order [...] if she needs a new medication. Sees LUCIA Clemente . I consulted with Alyson today and [...] completed 01/19/25. Pt scored 1, provider aware. -NARESH,SYLVAIN Prapare Prapare screenin g completed 01/19/25. -SYLVAIN INFANTE chest congestion Arcelia is here tod ay with complaints of chest congestion that has been going on for 2 weeks. Pt stated that she is coughing up yellow, thick sputum. 1 gram of Rocephin and 80 mg/mL of Depo given in left buttock. Pt tolerated well, band aide applied. telehealth Patient and/or G gem has verified being in the [facility] and has given verbal consent to be treated via telehealth/telephone consultation. Today's visit is being completed via; [employer] videoPatient and/or Guardian provided full consent to [...] G gem has verified being in the [facility] and has given verbal consent to be treated via telehealth/telephone consultation. Today's visit is being completed via; Telephone.Patient and/or Guardian provided full consent to use this technology. Patient and/or guardian was advised of the limitations of a video/phone visit via telehealthProvider completed this visit within his/her office. Patient's location during this visit- Patients workplace. JULIAN ARCE IS HERE THIS MORNING TO HAVE LABS [...] as well lab collection Arcelia is here tobethany bellamy requesting that her hormone levels be checked. [...] FLU VACCINE. ADMINISTERED INFLUENZA VACCINE AFLURIA, LOT# [id number], EXP: 03.31.25. PT TOLERATED WELL, BAND AID [...] fainting.Mood is okDifficulty concentrating - f/u w/ Alysonaydin Henao this coming week for ADHD med [...] to pharmacy. [facility] Arcelia is here tobethany bellamy for routine pap smear/women's health visit.Perimenopausal- on OPC for regulation and symptom control.She states is doing well on this.She does smoke- increased risk for Blood clots discussed in r/t to smoking. Smoking cessation declined.Denies vaginal complaints.Last Mammo in ..2022- Neg- , has an appt this Wednesday for [...] much better than her last visit- completed [id number] 5.8, Glucose 108- new PreDM- handouts given. Diet modifications recommended to decrease processed sugars, carbsVit D 77TSH 3.70B12 1472WBC 17.0- Sick at time of collection- treatedTotal Cholesterol 162HDL 42Trigs 130, LDL 97- Much improvedShe states she is doing wellTaking her medications as instructedMammo- [facility]- last year - scheduled in April for routine women's healthColonoscopy AprilSmokes 1ppd- trying to cut back and quitnot ready to completely stop at this timeRefills sent to Clarisa Shields for controlled adhd sore throat Onset: [...] last weekSees Alyson on the for vyvance- Acrelia has trouble completing tasks, staying focused. Depression. [...] month [facility]vance [facility] [...] try this coming weeks- Repeat labs Mid 2 weeks f/u on anxiety-depression. She states [...] stated she is currently worried about her [id number]. She didn't show much emotion today. Pt [...] D3 and glucosimineMood has been down-tearfulalso started 6-ZON-riveolo to stop until adjusts to current medicationsRTC 2 weeks menopause Menopause sympto nms worseemotional- crying for no reasons Hot flashes in the afternoons labs for Estrodol, LH and fsh indicate pt is post menopausalPt is insisting to have labs repeatedTSH was 7.35 in FebShe states that she has been compliant with medication, where she was not at that time in [facility] is very hard to follow in conversation [...] loss. Additional information: has appt w/ gastro [facility] for colonoscopy on 12/28/22 at 10:30, [...] another Endoscopy/Colonoscopylast was done w/ Margarita Schumacher [facility]- per pt report.She states she sometimes [...] well. Wants referal to Dermatology- routine skin playback operator visit over the weekend- thought she [...] Additional information: [facility]. New medication is [...] mal[facility] establish care Arcelia is here to [facility] establish care. She has been seeing Isis [...] to Body mass index [BMI] 29.0-29.9, adult Patient educated on the importance of maintaining glycemic control. Counseled on diet, exercise and other lifestyle factors that can impact glucose control. Instructed on the importance of taking all medications as prescribed. Patient aware of the importance of diabetic eye exams, dental check ups, foot exams and diabetic foot care. Patient verbalized understanding. Related to Prediabetes Take medication devan y at the same time, and on an empty stomach. Get adequate rest daily and 30 minutes of moderate exercise most days of the week. Related to Hypothyroidism, unspecified Low fat, low cholest clemente diet. Avoid fatty, fried, and greasy foods. Physical activity as tolerated. Counseled on risks of associated comorbidities, such as heart disease and stroke. Encouraged avoidance of tobacco products. Related to Hyperlipidemia Patient instructed o f the importance of [...] 90. Related to Essential (primary) hypertension Low fat diet.If you have RUQ pain [...] an understanding Related to Nausea w/o vomiting Patient counseled on doing warm salt water gargles, completing any and all medications prescribed, may use OTC analgesics as needed.Bicillin L-A injection given today in office Related to Streptococcal sore throat you may consider Bobby ck cohosh 20-60 mg bid for mood swings, vaginitis, and hot flashes(Do not use if you have a history of breast cancer)Take Vitamin E daily to help with dry skin. Related to Menopause Patient educated on the importance of maintaining [...] f/u appointment w/ Alyson at the end of JulyNotify office if you have worsening symptoms of [...] stop smoking/vaping, there is a free online [place] from smoking course offered through our local health department. You may call [phone] for more information.Use Nicotine gum as instructed [...] stop smoking/vaping, there is a free online [place] from smoking course offered through our local health department. You may call [phone] for more information.Use nicotine patches and gum [...] stop smoking/vaping, there is a free online [place] from smoking course offered through our local health department. You may call [phone] for more information. Related to Nicotine dependence, cigarettes, w/ other nicotine-induced disorder you may consider Bobby ck cohosh 20-60 mg bid for mood swings, vaginitis, and hot flashes(Do not use if you have a history of breast cancer)Take Vitamin E daily to help with dry skin.Keep upcoming appointment with GASOLINE CATALYST OPERATOR for further evaluation Related to Menopause Patient instructed o f the importance of [...] to Body mass index [BMI] 26.0-26.9, adult Keep area dry as pos sible. Use loose fitting clothing, and made of cotton. Take all medications as prescribed.F/u if not improved or resolved. Good glycemic control is also important in the management of yeast. Related to Vaginitis Avoid chocolate, caf feine, carbonation, or citrus. Take antibiotics until complete. Take all medications as prescribed. Drink plenty of clear fluids. Counseled on appropriate hygiene to reduce risk of future UTI's. Verbalized an understanding of all. Related to UTI Giving encouragement to exercise Related to Body [...] understanding.Review handouts about prediabetes. Related to Prediabetes It is recommended to stop smoking/vaping to increase overall health and decrease risk of cardiovascular disease. If you wish to stop smoking/vaping, there is a free online [place] from smoking course offered through our local health department. You may call [phone] for more information. Related to Nicotine dependence, cigarettes, w/ other nicotine-induced disorder Take medication devan y at the same time, and on an empty stomach. Get adequate rest daily and 30 minutes of moderate exercise most days of the week. Related to Hypothyroidism, unspecified Low fat, low cholest clemente diet. Avoid [...] to Body mass index [BMI] 27.0-27.9, adult Dietary Instructions for a healthy weight: BMI should be between the range of 18.5-24.9 for an adult; and Caloric intake should be around 4656-0763 for a female, and [id number] for an adult male. Fiber intake should [...] are recommend to be 13-30 grams each. [employer] is a good source for meal planning and dietary education. You may also refer to the [place] [employer] website for further low sodium, [...] to Body mass index [BMI] 27.0-27.9, adult Take all antibiotics until complete. May take with food to ease stomach irritation. If you experience frequent yeast infections, you may consider taking an OTC probiotic like culturell or align while taking antibiotics, or eating yogurt (daily) with active cultures. Related to Otitis media, unspecified, right ear Patient counseled on doing warm salt water [...] with active cultures. Related to Acute pharyngitis Patient currently do ing well. BP in [...] able to tolerate. Related to Mood disorder Take medications as prescribed. Follow a sleep schedule. Try to engage in 30 minutes of moderate activity daily if tolerated, as exercise has been shown to improve depression symptomsIncrease olanziprine to 20 mg dailyRTC January/ and fasting labsRTC sooner if new problems, concerns or no improvement in mood Related to Major depression Counseled patients o n medications for reflux. Discussed lifestyle modifications including but not limited to elevating the head of the bed, limiting fatty, greasy, spicy food intake. Avoid heavy meals and caffeine intake within 2 hours of bedtime. If applicable, reduce/discontinue tobacco use and/or alcohol use, as both can make reflux symptoms worse. Related to GERD disease w/ esophagitis, w/o bleeding Patient counseled on doing warm salt water [...] stop smoking/vaping, there is a free online [place] from smoking course offered through our local health department. You may call [phone] for more information.Use nicotine patches as instructed.RTC [...] than 90. Related to Essential (primary) hypertension Take medications as prescribed. Follow a sleep [...] tolerate. Related to Anxiety disorder, unspecified Take medication devan y at the same [...] to tolerate. Related to Anxiety disorder, unspecified Dr. Thomas has agre ed to send a one time 30 day supply of medication until we are able to get you into [facility] for medication management. You MUST keep your upcoming appointments with [facility], or you will be with out this medication, as I am unable to prescribe this for you. 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 Try to engage in some form of moderate physical activity for 30 minutes most days of the week. May modify activity as needed to reduce discomfort. Try to achieve/maintain a healthy body weight to reduce strain on musculoskeletal system. Verbalizes an understanding. Related to Body mass index [BMI] 27.0-27.9, adult Take medication devan y at the same time, and on an empty stomach. Get adequate rest daily and 30 minutes of moderate exercise most days of the week. Related to Hypothyroidism It is recommended to stop smoking/vaping to increase overall health and decrease risk of cardiovascular disease. If you wish to stop smoking/vaping, there is a free online [place] from smoking course offered through our local health department. You may call [phone] for more information.Use nicotine patches as instructed.RTC 1 month for f/u Related to Nicotine dependence, cigarettes, w/ other nicotine-induced disorder COntinue hormonal th erapycontinue other medicationswe will reevaluate your TSH in 6 weeks Related to Emotional lability Lifestyle education regarding di et Related to Body mass index [BMI] 27.0-27.9, adult Giving encouragement to exercise Related to Body mass index [BMI] 27.0-27.9, adult Low fat, low cholest clemente diet. Avoid fatty, fried, and greasy foods. Physical activity as tolerated. Counseled on risks of associated comorbidities, such as heart disease and stroke. Encouraged avoidance of tobacco products. Related to Hyperlipidemia Patient instructed o f the importance of [...] than 90. Related to Essential (primary) hypertension Physical activity as tolerated. Try to engage in some form of moderate physical activity for 30 minutes most days of the week. May modify activity as needed to reduce discomfort. Try to achieve/maintain a healthy body weight to reduce strain on musculoskeletal system. Verbalizes an understanding. Related to Body mass index [BMI] 27.0-27.9, adult Take medication devan y at the [...] Related to Unspecified menopausal and perimenopausal disorder It is recommended to stop smoking to increase overall health and decrease risk of cardiovascular disease. If you wish to stop smoking, there is a free online [place] from smoking course offered through our local health department. You may call [phone] for more information. Related to Nicotine dependence, cigarettes, w/ other nicotine-induced disorder Take medication devan y at the same time, and on an empty stomach. Get adequate rest daily and 30 minutes of moderate exercise most days of the week. Related to Hypothyroidism Patient currently do ing well. BP in [...] tolerate. Related to Anxiety disorder, unspecified Patient instructed o f the importance of [...] stop smoking, there is a free online [place] from smoking course offered through our local health department. You may call [phone] for more information. Related to Nicotine dependence, cigarettes, w/ other nicotine-induced disorder Take medication devan y at the same time, and on an empty stomach. Get adequate rest daily and 30 minutes of moderate exercise most days of the week. Related to Hypothyroidism Take medications as prescribed. Follow a sleep [...] to bid Related to Anxiety disorder, unspecified Giving encouragement [...] stop smoking, there is a free online [place] from smoking course offered through our local health department. You may call [phone] for more information. Related to Nicotine dependence, [...] Hypothyroidism Keep your up coming appt with [facility] for medication management Related to ADHD Referral to Vidal lyles at [facility] We will call with an appointment once obtained or you may contact their office [facility] [phone] Related to Changes in skin texture Discussed [...] follow up. Related to Otalgia, right ear start zyprexa Related to Mood disorder Low fat, low cholest clemente diet. [...] days of the week. Related to Hypothyroidism Stop vraylarStart zy prexa 10 mg daily [...] able to tolerate.Continue with samples given by Eriac Bowman (Mydayis and vraylar)Gene site testing todayFasting labs todayRTC 2 weeks f/u on labs/medications Related to Anxiety disorder, unspecified Assessments Type Assessment Date assessment Cough assessment Abdominal pain assessment Body mass index [BMI] 29.0-29.9, adult Mental Status Date Cognitive Assessment Orientation - [place] ed to time, place, person, situation.
--- NOTE | 2025-08-01 08:37 | XR_ITS ---
FINAL REPORT TECHNIQUE: Chest PA & Lateral CLINICAL HISTORY: Nonspecific cough COMPARISON: None FINDINGS: 2 views of the chest were performed. The heart size is normal. The mediastinum is within normal limits. There is no acute cardiopulmonary process. There are no pleural effusions. There is no pneumothorax. The bony thorax appears intact. IMPRESSION: No acute cardiopulmonary process. Reviewed, Interpreted and Dictated by Serafin Collins MD Transcribed by Ember Salas Authenticated and [facility]
--- OUTSIDE RECORDS SUMMARY | 2025-08-01 08:38 | XMS_ITS | Clinical Summary ---
Author Organization Healthcare Address [address] [place] [address] Care Team Providers Care Feed Inspection Supervisor Name Role Phone Unavailable Primary Care Provider [...] Problem Noted Date Diagnosed Date Depression 09/19/2020 Hyperlipidemia 12/10/2015 Hypothyroidism 11/08/2015 Adult ADHD 01/26/2015 RICHA (generalized anxiety disorder) 01/26/2015 Resolved Problems Problem Noted Date Diagnosed Date Resolved Date Heartburn 01/05/2019 07/22/2025 Immunizations Immunization Administration Dates Next Due Influenza, [...] 07/10/2019, 05/20/2016 [facility]-Depression Screening 08/21/2022 08/21/2021, 08/02 [facility]-Cervical Cancer Screening 07/10/2024 [facility]-HPV/Cotest 07/10/2024 07/10/2019, 05/20/2016 [id number] Vaccine ( season) 2025 12/20/2020, 11/20/2020 [facility]-Influenza Vaccine (#1) 07/02/202508/17, 08/04/2022, 08/15/2020, Additional [...] 06/04/2020 Mammography Breast Diagnostic Tomosynthesis Bilateral at [facility] 06/04/2020 Mammography Stereotactic Breast Biopsy Right at [facility] 06/04/2020 Mammography Stereotactic Breast Biopsy Each Additional Historical at [facility] 06/04/2020 Mammography Breast Post Biopsy Clip Bilateral at [facility] 01/10/2021 Mammography Breast Diagnostic Tomosynthesis Bilateral at [facility] 04/07/2022 Mammography Breast Screening Tomosynthesis Bilateral at [facility] 04/08/2023 Mammography Breast Screening Tomosynthesis Bilateral at [facility] BREAST COMPOSITION: The breasts are heterogeneously dense, which may obscure small masses. FINDINGS: There are post-biopsy clip(s) present in the left breast. There is no evidence of suspicious masses, calcifications, or other abnormal findings. us Self Referral Mammogram IMG BI PROCEDURES Final Result * Cytology (07/10/2019 12:00 AM EDT) 07/10/2019 07/10/2019 3:3 9 PM EDT Narrative SUNQUEST - 07/14/2019 5:59 AM EDT [facility] MR #: [id number] [facility] [address] [place], [place] [address] 1970 (Age: 48) FW Collect Date: 07/10/2019 00:00 Receipt Date: 07/10/2019 15:39 Page 1 DEPARTMENT OF PATHOLOGY AND LABORATORY MEDICINE CYTOPATHOLOGY REPORT Email: [email or web address] [id number] ATTENDING MD/Practitioner: Rupal Vasquez MD Service: [facility] Location: [facility] Reported: 07/14/2019 05:59 Collected: 07/10/2019 00:00 INTERPRETATION A. THIN PREP (CERVICAL/VAGINAL): NEGATIVE FOR INTRAEPITHELIAL LESION OR MALIGNANCY. SATISFACTORY FOR EVALUATION; ENDOCERVICAL/ TRANSFORMATION ZONE COMPONENT PRESENT. Slide scanned and imaged by [employer] ThinPrep Imaging System with manual review of [...] results is suggested (please call Microbiology at [phone] for results). CLINICAL INFORMATION: Menstrual History: Cyclic Date of Last Menstrual Period: {Not Provided} Other Clinical Conditions: If ASCUS and > 24 years of age, HPV/DNA testing requested. SPECIMEN DESCRIPTION: A: THIN PREP (CERVICAL/VAGINAL) THIN PREP PROCESS CELLULAR ENHANCEMENT ICD: F: A; RT IMAGE [id number] SNOMED CODES: A; [id number] In cases where a pathologist has signed out the report, the service has been rendered in part by a resident. The signing pathologist has performed and is responsible for the reported pathologic evaluation. Isis Vasquez MD LAB PATHOLOGY ORDERABLES Viktoriya guevara Result SUNQUEST from Last 3 Months or Most Recently Relevant to Health Maintenance Insurance [facility]
== END 2025-08-01 23:59 | disposition home or self-care (01) ==
LOC: RAD 08:30
PROVIDERS: PCP Nurse Practitioner Family; Visit Provider Nurse Practitioner Family
DX: R05.9 Cough, unspecified (principal)
CPT/HCPCS: 71046

== ENCOUNTER 2025-08-16 16:14 | Outpatient (CLI) | payer BC, SELFPAY ==
--- OUTSIDE RECORDS SUMMARY | 2025-07-31 04:33 | XMS_ITS | Continuity of Care Document ---
Author Organization [facility] Address [address] [place] [address] Phone Care Team Providers Care Registered Radiologic Technologist Name Role Phone Jacinto MSN, ENERGY ADMINISTRATOR, Emi Unavailable Unavai lable Allergies, Adverse Reactions, Alerts Substance Reaction Status Criticality No Known Allergies Active No Inform ation Medications Medication Instructions Dosage Effective Dates (start - stop) Status Comments benzonatate 100 mg capsule take 1 capsule by oral route 3 times every day as needed for cough 100 MG - Active mupirocin 2 % topical ointment apply by topical route 2 times every day a small amount to the affected area Not Available - Active ROSUVASTATIN 20MG TABLETS TAKE 1 TABLET BY MOUTH EVERY DAY - Active scopolamine 1 mg over 3 days transdermal patch apply 1 patch by transdermal route to the hairless area behind 1 ear at least 4 hr before effect is required; reapply every 3 days as needed 1.00 patch - Active ondansetron [address] 1 tablet by translingual route every 8 hours on top of the tongue where they will dissolve, then swallow 4 MG - Active levothyroxine 112 mcg tablet take 1 tablet by oral route every day - Active cetirizine 10 mg tablet take [...] route every day 40 MG - Active black cohosh 540 mg capsule daily - Active Vitamin D3 50 mcg (2,000 unit) capsule take 1 capsule by oral route every day 1 capsule - Active Glucosamine Chondroitin 550 mg-30 mg-1 mg capsule daily - Active Lexapro 20 mg tablet take 1 tablet by oral route every day 20 MG - Active Adderall 20 mg tablet take 1 tablet by oral route every 2 days before breakfast 20 MG - Active Procedures Procedure Date Inj, methylpred acetate 1 mg OFFICE/OUTPATIENT VISIT, [facility] THER/PROPH/DIAG INJ, SC/IM Advance Directives Directive Yes / No Effective Date File Name No Information Encounters Encounter Description Practice Location Reason(s) For Visit Diagnoses Date Provider OFFICE/OUTPA TIENT VISIT, [facility], [address] [place] [address], [facility], tel:[phone] [place] Abdominal pain (chief complaint)C hest Congestion (chief complaint) CoughAbdominal painBody mass index [BMI] 29.0-29.9, adult Sep- 5 Casey Emi. [address], [place], [id number] , . tel: [phone] [facility], [address] [place] [address], [facility], tel:[phone] [place] No Information 5 Casey Emi. [address], [place], [id number] , . tel:[phone] [facility], [address] [place] [address], [facility], tel:[phone] [facility] [place] f/u labs (chief complaint) Abnormal level of alkaline phosphataseEssential (primary) hypertensionHyperlipidem iaHypothyroidism, unspecifiedPrediabetesAc iqugmiut upper respiratory infection, unspecifiedBody mass index [BMI] 28.0-28.9, adult Sep-1 0- 5 Casey Emi. [address], [place], [id number] , . tel: [phone] [facility], [address] [place] [address], [facility], tel:[phone] [facility] [place] cough/sore throat (chief complaint)b loating (chief complaint)a nxiety/depr ession (chief complaint) Hypothyroidism, unspecifiedIrritable bowel syndromeGERD disease w/ esophagitis, w/o bleedingMenopausePrediab etesMajor depressionStreptococcal sore throatNausea w/o vomitingMotion sickness, sequelaBody mass index [BMI] 27.0-27.9, adult Aug- 5 Casey Emi[address], [place], [address] [place] [address] , [place]. tel:[phone] [facility], [address] [place] [address], [facility], tel:[phone] [place] No Information 5 Casey Emi. [address], [place], [address] [place] [address] , [place]. tel:[phone] [facility], [address] [place] [address], [facility], [place] tel:[phone] [facility] [place] No Information 5 Casey [address]i. [address], [place], [address] [place] [address] , . tel: [phone] [facility], [address] [place] [address], [facility], tel:[phone] [facility] [place] No Information 5 Casey Emi. [address], [place], [id number] , [place]. tel: [phone] [facility], [address] [place] [address], [facility], [place] tel:[phone] No Information 5 Casey Emi. [address], [place], [id number] , [place]. tel: [phone] [facility], [address] [place] [address], [facility], [place] tel:[phone] [facility] Encounter for screening mammogram for malignant neoplasm of breast 5 Casey Emi. [address], [place], [id number] , [place]. tel: [phone] [facility], [address] [place] [address], [facility], [place] tel:[phone] [facility] Follow up on labs (chief complaint) Nicotine dependence, cigarettes, w/ other nicotine-induced disorderPrediabetesMajor depressionHypothyroidism , unspecifiedHyperlipidemi aEssential (primary) hypertensionAbnormal level of alkaline phosphataseBody mass index [BMI] 26.0-26.9, adult 5 Casey Emi. [address], [place], [address] , [place]. tel: [phone] [facility], [address] [place] [address], [facility], [place] tel:[phone] [facility] No Information 5 Casey Emi. [address], [place], [id number] , [place]. tel: [phone] [facility], [address] [place] [address], [facility], [place] tel:[phone] [facility] [place] Chest Congestion (chief complaint) Acute upper respiratory infection, unspecifiedBody mass index [BMI] 27.0-27.9, adult 5 Casey [address]. [address], [place], [address] [place] [address] , . tel: [phone] [facility], [address] [place] [address], [facility], tel:[phone] [facility] [place] FASTING LABS (chief complaint) Essential (primary) hypertension Casey Emi. [address], [place], [address] [place] [address] , . tel: [phone] [facility], [address] [place] [address], [facility], tel:[phone] [facility] [place] Depression Screening (chief complaint)P rapare (chief complaint)c hest congestion (chief complaint)t elehealth (chief complaint) Encounter for screening for depressionAcute upper respiratory infection, unspecifiedBody mass index [BMI] 28.0-28.9, adultEssential (primary) hypertensionNicotine dependence, cigarettes, w/ other nicotine-induced disorder 5 Casey [address]i. [address], [place], [address] [place] [address] , . tel: [phone] [facility], [address] [place] [address], [facility], tel:[phone] [facility] [place] Acute upper respiratory infection, unspecified 5 Casey Emi. [address], [place], [id number] , . tel: [phone] [facility], [address] [place] [address], [facility], tel:[phone] [facility] [place] dysuria (chief complaint) DysuriaBody mass index [BMI] 28.0-28.9, adult Mar-0 3- 5 Casey Emi. [address], [place], [id number] , [place]. tel: [phone] [facility], [address] [place] [address], [facility], tel:[phone] [facility] [place] urinary urgency (chief complaint)t elehealth (chief complaint) Dysuria 5 Casey Emi. [address], [place], [address] , [place]. tel: [phone] [facility], [address] [place] [address], [facility], tel:[phone] [facility] [place] LABS (chief complaint) Hypothyroidism, unspecified 4 Casey Emi. [address], [place], [address] , [place]. tel: [phone] [facility], [address] [place] [address], [facility], [place] tel:[phone] [facility] [place] FOLLOW UP ON LABS (chief complaint) Body mass index [BMI] 27.0-27.9, adultEssential (primary) hypertensionMenopauseNic otine dependence, cigarettes, w/ other nicotine-induced disorderIrritable bowel syndrome 4 Casey Emi. [address], [place], [address] , [place]. tel: [phone] [facility], [address] [place] [address], [facility], [place] tel:[phone] [facility] [place] lab collection (chief complaint) Emotional lability 4 Casey Emi. [address], [place], [address] , [place]. tel: [phone] [facility], [address] [place] [address], [facility], tel:[phone] [facility] [place] No Information 4 Casey [address]. [address], [address] [place] [address] , . tel: [phone] [facility], [address] [place] [address], [facility], tel:[phone] [facility] [place] FASTING LABS (chief complaint)F ROBERTA VACCINE (chief complaint) Essential (primary) hypertension 4 Casey Emi. [address], [place], [address] , . tel: [phone] [facility], [address] [place] [address], [facility], tel:[phone] [facility] [place] follow up on labs (chief complaint) Hypothyroidism, unspecifiedHypercalcemia Abnormal level of alkaline phosphataseBody mass index [BMI] 26.0-26.9, adult 4 Casey Emi. [address], [place], [address] , . tel: [phone] [facility], [address] [place] [address], [facility], tel:[phone] [facility] [place] lab collection (chief complaint) DysuriaEssential (primary) hypertension 4 Casey [address]i. [address], [place], [address] , [place]. tel: [phone] [facility], [address] [place] [address], [facility], tel:[phone] [facility] [place] possible UTI/Yeast (chief complaint) DysuriaBody mass index [BMI] 25.0-25.9, adultUTIVaginitis 4 Casey Emi. [address], [place], [address] , [place]. tel: [phone] [facility], [address] [place] [address], [facility], [place] tel:[phone] [place] Spondylolisthesis, lumbar region 4 Casey Emi. [address], [place], [address] , [place]. tel: [phone] [facility], [address] [place] [address], [facility], [place] tel:[phone] [facility] (chief complaint) Body mass index [BMI] 26.0-26.9, adultEncntr for lapel stitcher exam (general) (routine) w/o abn findingsEncntr screen for infections w sexl mode of transmissLow back pain, unspecified 4 Casey Emi. [address], [place], [address] , [place]. tel: [phone] [facility], [address] [place] [address], [address], [place] tel:[phone] [facility] follow up labs (chief complaint) Body mass index [BMI] 27.0-27.9, adultAnxiety disorder, unspecifiedEssential (primary) hypertensionHyperlipidem iaHypothyroidism, unspecifiedNicotine dependence, cigarettes, w/ other nicotine-induced disorderPrediabetes 4 Casey Emi. [address], [place], [address] , [place]. tel: [phone] [facility], [address] [place] [address], [address], [place] tel:[phone] [facility] sore throat (chief complaint) Essential (primary) hypertensionBody mass index [BMI] 27.0-27.9, adultAcute pharyngitisOtitis media, unspecified, right ear Apr- 7-202 4 Casey Emi. [address], [place], [address] , [place]. tel:[phone] [facility], [address] [place] [address], [facility], tel:[phone] [facility] [place] f/u depression/ ear pain (chief complaint) Other seasonal allergic rhinitisMood disorderMajor depressionGERD disease w/ esophagitis, w/o bleedingEncounter for screening for depressionEncounter for screening examination for other mental health and behavioral disorders 4 Casey Emi. [address], [place], [address] , [place]. tel:[phone] [facility], [address] [place] [address], [facility], tel:[phone] [facility] [place] COVID TEST (chief complaint) Encounter for screening for [id number] 4 Casey Emi. [address], [place], [address] , [place]. tel:[phone] [facility], [address] [place] [address], [facility], tel:[phone] [facility] [place] fasting lab collection (chief complaint) Essential (primary) hypertensionHyperlipidem iaBilateral pink eye 3 Casey Emi. [address], [place], [address] , [place]. tel:[phone] [facility], [address] [place] [address], [facility], [place] tel:[phone] [facility] [place] sore throat (chief complaint) Acute pharyngitisBody mass index [BMI] 27.0-27.9, adult 3 Casey Emi. [address], [place], [address] , [place]. tel: [phone] [facility], [address] [place] [address], [facility], tel:[phone] [facility] [place] Anxiety (chief complaint) Hypothyroidism, unspecifiedBody mass index [BMI] 27.0-27.9, adultAnxiety disorder, unspecifiedAD/HD, predominantly inattentive presentationMood disorderEssential (primary) hypertensionNicotine dependence, cigarettes, w/ other nicotine-induced disorder 3 Casey Emi. [address], [place], [address] , [place]. tel: [phone] [facility], [address] [place] [address], [facility], tel:[phone] [facility] [place] Medication (chief complaint) AD/HD, predominantly inattentive presentationBody mass index [BMI] 27.0-27.9, adultAnxiety disorder, unspecifiedEmotional labilityNicotine dependence, cigarettes, w/ other nicotine-induced disorderHypothyroidism 3 Casey Emi. [address], [place], [address] , [place]. tel: [phone] [facility], [address] [place] [address], [facility], [place] tel:[phone] [facility] [place] Fasting Labs (chief complaint) Essential (primary) hypertension 3 Casey Emi. [address], [place], [address] , [place]. tel: [phone] [facility], [address] [place] [address], [facility], [place] tel:[phone] [facility] [place] Follow up on Labs (chief complaint) Anxiety disorder, unspecifiedEmotional labilityEssential (primary) hypertensionHyperlipidem iaHypothyroidismMood disorderBody mass index [BMI] 27.0-27.9, adult Naren- 3 Casey Emi. [address], [place], [address] , [place]. tel:[phone] [facility], [address] [place] [address], [facility], tel:[phone] [facility] [place] lab collection (chief complaint) Essential (primary) hypertension 3 Casey Emi. [address], [place], [address] , [place]. tel:[phone] [facility], [address] [place] [address], [facility], tel:[phone] [facility] [place] follow up meds (chief complaint) Body mass index [BMI] 28.0-28.9, adultAnxiety disorder, unspecified 3 Casey Emi. [address], [place], [address] , [place]. tel:[phone] [facility], [address] [place] [address], [facility], tel:[phone] [facility] [place] follow up on meds (chief complaint) Body mass index [BMI] 28.0-28.9, adultAnxiety disorder, unspecifiedMenopause 3 Casey Emi. [address], [place], [address] , [place]. tel:[phone] [facility], [address] [place] [address], [facility], tel:[phone] [facility] [place] menopause (chief complaint) Anxiety disorder, unspecifiedEmotional labilityEssential (primary) hypertensionHypothyroidi smMood disorderNicotine dependence, cigarettes, w/ other nicotine-induced disorderUnspecified menopausal and perimenopausal disorder 3 Casey Emi. [address], [place], [address] , . tel: [phone] [facility], [address] [place] [address], [facility], tel:[phone] [facility] [place] follow up (chief complaint) Body mass index [BMI] 29.0-29.9, adultAcute upper respiratory infection, unspecifiedHypothyroidis mHyperlipidemiaEssential (primary) hypertension 3 Casey Emi. [address], [place], [address] , . tel: [phone] [facility], [address] [place] [address], [facility], tel:[phone] [facility] [place] follow up meds (chief complaint) Body mass index [BMI] 29.0-29.9, adultAnxiety disorder, unspecifiedMood disorderHypothyroidismNi cotine dependence, cigarettes, w/ other nicotine-induced disorder 3 Casey Emi. [address], [place], [address] , . tel: [phone] [facility], [address] [place] [address], [facility], tel:[phone] [facility] [place] GERD (chief complaint) GERD disease w/ esophagitis, w/o bleeding 3 Casey Emi. [address], [place], [address] , [place]. tel:[phone] [facility], [address] [place] [address], [facility], [place] tel:[phone] [facility] [place] follow up labs (chief complaint) Anxiety disorder, unspecifiedHypothyroidis mHyperlipidemiaGERD disease w/ esophagitis, w/o bleedingNicotine dependence, cigarettes, w/ other nicotine-induced disorderElevated blood-pressure reading w/o diagnosis of HTNBody mass index [BMI] 29.0-29.9, adult 2 Casey Emi. [address], [place], [id number] , [place]. tel:[phone] [facility], [address] [place] [address], [facility], tel:[phone] [facility] follow up medication (chief complaint) ADHDAnxiety disorder, unspecifiedHypothyroidis mMood disorderMixed irritable bowel syndromeChanges in skin texture 2 Casey Emi. [address], [place], [address] , [place]. tel: [phone] [facility], [address] [place] [address], [facility], tel:[phone] [facility] anxiety (chief complaint) Anxiety disorder, unspecifiedHypothyroidis [facility] 2 Casey Emi. [address], [place], [address] , [place]. tel: [phone] [facility], [address] [place] [address], [facility], [place] tel:[phone] [facility] follow up labs (chief complaint) Anxiety disorder, unspecifiedHypothyroidis mHyperlipidemiaMood disorderOtalgia, right ear 2 Casey Emi. [address], [place], [address] , [place]. tel: [phone] [facility], [address] [place] [address], [facility], [place] tel:[phone] [facility] NEW PATIENT (chief complaint)G eneSight Testing (chief complaint) Encounter for screening for depressionEncounter for screening examination for other mental health and behavioral disordersEncounter for screening for diseases of the blood and blood-forming organs and certain disorders involving the immune mechanismAnxiety disorder, unspecifiedEmotional labilityFatigueEncounter for immunization 2 Jacinto [address]. [address], [address] , . tel:[phone] Family History Family Member Type Diagnosis Age [...] Registry Payers Payer name Insurance type Covered democrat ID Authoriza tion(s) [place] [employer] [facility] [id number] [place] [employer] [facility] [id number] [place] [id number] Social History Type Description Quantity Date Captured Comments Alcohol Use Details Unknown Caffeine Use Details Unknown Tobacco Use Status Smoking Status No Information Sex Female Sexual Orientation Straight or heterosexual Aug Gender Identity Female Vital Signs Date / Time: Height Weight BMI Pulse Rate Blood Pressure Temperature Respiratory Rate Body Surface Area Head Circumference Head Circ. Percentile Wt./Robert. Percentile BMI percentile Pulse Ox Inhaled Ox 8:50 AM 63.50 in 76.204 kg (168.00 lbs) 29.2 9 kg/m eter (2) 98 /min 136/79 mm[Hg] 97.60 F 18 /min 94 % Chief Complaint And Reason For Visit From encounter dated '07/31/2025 08:33'. Abdominal pain (chief complaint). Description: Onset: 1 Year. The severity of the problem is moderate. The problem has worsened. The symptoms are constant. The location is left upper quadrant and left lower quadrant. Aggravating factors include anxiety, constipation and milk/dairy products. Symptoms are not aggravated by intercourse. Associated symptoms include bloating, constipation and diarrhea. Pertinent negatives include flatulence and heartburn. Additional information: 05/18/25 [place] abd unremarkable. Pt feels something is wrong. Will order CT of abd w/ and w/o. Chest Congestion (chief complaint). Description: Arcelia is here today due to continued chest congestion, productive coughing, yellow and white in color. Chest congestion has been present for almost 2 months now. Plan Of Treatment Date Type Action Status Goal Vitamin D. Due on due Goal Pap/HPV testing. Due on due Goal Obtain Height, W eight, and BMI. Due on due Goal Influenza vaccine. Due on Oc due Goal PAP. Due on due Goal CBC. Due on due Goal Tobacco Use Cess ation Counseling. Due on due Goal Tobacco Use Scre ening. Due on due Goal Tobacco screening. Due on Se due Goal HIV screen due Goal Hepatitis C Screening due Goal CMP. Due on due Goal HPV. Due on due Goal Vitamin B12. Due on due Goal HPV testing. Due on due Goal Depression scree cinda. Due on due Goal Follow up Plan f or abnormal BMI (Less than 18.5, greater than 25). Due on due Goal TSH. Due on due Goal Diabetes screening. Due on due Goal Generalized Anxi ety Disorder - 7 (RICHA-7). Due on due Goal Unhealthy drug use screening due Goal Hemoglobin (Pree chika/HR 9 months). Due on due Goal ECG. Due on due Goal Hematocrit/Hemog lobin. Due on due Goal Obtain blood Pre ssure. Due on due Goal Lipid panel. Due on due Goal Urinalysis due Goal Lifestyle education regardin g diet completed Goal TSH. Due on due Goal Tobacco Use Scre ening. Due on due Goal HPV testing. Due on due Goal Unhealthy drug use screening due Goal Follow up Plan f or abnormal BMI (Less than 18.5, greater than 25). Due on due Goal CMP. Due on due Goal Tobacco Use Cess ation Counseling. Due on due Goal Influenza vaccine. Due on due Goal Generalized Anxi ety Disorder - 7 (RICHA-7). Due on due Goal Pap/HPV testing. Due on due Goal PAP. Due on due Goal Obtain Height, W eight, and BMI. Due on due Goal HPV. Due on due Goal Tobacco screening. Due on due Goal HIV screen due Goal ECG. Due on due Goal Depression scree cinda. Due on due Goal Vitamin B12. Due on due Goal Diabetes screening. Due on due Goal Vitamin D. Due on due Goal CBC. Due on due Goal Hemoglobin (Pree chika/HR 9 months). Due on due Goal Obtain blood Pre ssure. Due on due Goal Hepatitis C Screening due Goal Urinalysis due Goal Hematocrit/Hemog lobin. Due on due Goal Lipid panel. Due on due Goal Lipid panel. Due on due Goal Obtain Height, W eight, and BMI. Due on due Goal Tobacco Use Scre ening. Due on due Goal Diabetes screening. Due on due Goal TSH. Due on due Goal Pap/HPV testing. Due on due Goal HPV. Due on due Goal Influenza vaccine. Due on Oc [id number] due Goal Vitamin D. Due on due Goal HIV screen due Goal Generalized Anxi ety Disorder - 7 (RCIHA-7). Due on due Goal Hepatitis C Screening due Goal HPV testing. Due on due Goal CMP. Due on due Goal Urinalysis due Goal Hematocrit/Hemog lobin. Due on due Goal ECG. Due on due Goal Hemoglobin (Pree chika/HR 9 months). Due on due Goal PAP. Due on due Goal Tobacco Use Cess ation Counseling. Due on due Goal Tobacco screening. Due on due Goal CBC. Due on due Goal Depression scree cinda. Due on due Goal Unhealthy drug use screening due Goal Vitamin B12. Due on due Goal Follow up Plan f or abnormal BMI (Less than 18.5, greater than 25). Due on due Goal Obtain blood Pre ssure. Due on due Goal Lifestyle education regardin g diet completed Goal Tobacco cessation counseling completed Goal Tobacco screening. Due on due Goal Urinalysis due Goal Generalized Anxi ety Disorder - 7 (RICHA-7). Due on due Goal TSH. Due on due Goal CBC. Due on due Goal CMP. Due on due Goal Obtain Height, W eight, and BMI. Due on due Goal Influenza vaccine. Due on due Goal Diabetes screening. Due on due Goal Vitamin D. Due on due Goal Hemoglobin (Pree chika/HR 9 months). Due on due Goal PAP. Due on due Goal Obtain blood Pre ssure. Due on due Goal Follow up Plan f or abnormal BMI (Less than 18.5, greater than 25). Due on due Goal HPV. Due on due Goal HIV screen due Goal ECG. Due on due Goal HPV testing. Due on due Goal Tobacco Use Cess ation Counseling. Due on due Goal Vitamin B12. Due on due Goal Hepatitis C Screening due Goal Unhealthy drug use screening due Goal Tobacco Use Scre ening. Due on due Goal Pap/HPV testing. Due on due Goal Hematocrit/Hemog lobin. Due on due Goal Depression scree cinda. Due on due Goal Lipid panel. Due on due Goal Lipid panel. Due on due Goal Tobacco cessation counseling completed Goal Lifestyle education regardin g diet completed Goal HPV. Due on due Goal HPV testing. Due on 029 due Goal Depression scree cinda. Due on due Goal HIV screen due Goal TSH. Due on due Goal Generalized Anxi ety Disorder - 7 (RICHA-7). Due on due Goal Obtain Height, W eight, and BMI. Due on due Goal Hepatitis C Screening due Goal Tobacco screening. Due on due Goal Tobacco Use Cess ation Counseling. Due on due Goal Tobacco Use Scre ening. Due on due Goal Diabetes screening. Due on due Goal Pap/HPV testing. Due on due Goal Follow up Plan f or abnormal BMI (Less than 18.5, greater than 25). Due on due Goal Influenza vaccine. Due on due Goal Vitamin B12. Due on 026 due Goal Obtain blood Pre ssure. Due on due Goal ECG. Due on due Goal CBC. Due on due Goal CMP. Due on due Goal Hemoglobin (Pree chika/HR 9 months). Due on due Goal Vitamin D. Due on due Goal Urinalysis due Goal Unhealthy drug use screening due Goal PAP. Due on due Goal Hematocrit/Hemog lobin. Due on due Goal Lipid panel. Due on due Goal Hepatitis C Screening due Goal Unhealthy drug use screening due Goal Tobacco Use Cess ation Counseling. Due on due Goal Vitamin B12. Due on due Goal CMP. Due on due Goal Depression scree cinda. Due on due Goal Obtain Height, W eight, and BMI. Due on due Goal Generalized Anxi ety Disorder - 7 (RICHA-7). Due on due Goal PAP. Due on due Goal Pap/HPV testing. Due on due Goal Tobacco Use Scre ening. Due on due Goal CBC. Due on due Goal HIV screen due Goal Influenza vaccine. Due on Oc due Goal Diabetes screening. Due on due Goal TSH. Due on due Goal HPV testing. Due on due Goal Vitamin D. Due on due Goal Tobacco screening. Due on Ju due Goal HPV. Due on due Goal Urinalysis due Goal ECG. Due on due Goal Hemoglobin (Pree chika/HR 9 months). Due on due Goal Obtain blood Pre ssure. Due on due Goal Hematocrit/Hemog lobin. Due on due Goal Follow up Plan f or abnormal BMI (Less than 18.5, greater than 25). Due on due Goal Lipid panel. Due on 026 due Goal Unhealthy drug use screening due Goal CBC. Due on due Goal Follow up Plan f or abnormal BMI (Less than 18.5, greater than 25). Due on due Goal Hepatitis C Screening due Goal Diabetes screening. Due on M due Goal Pap/HPV testing. Due on due Goal Tobacco screening. Due on due Goal Depression scree cinda. Due on due Goal HIV screen due Goal Tobacco Use Cess ation Counseling. Due on due Goal Obtain Height, W eight, and BMI. Due on due Goal CMP. Due on due Goal Influenza vaccine. Due on due Goal PAP. Due on due Goal Tobacco Use Scre ening. Due on due Goal Generalized Anxi ety Disorder - 7 (RICHA-7). Due on due Goal Obtain blood Pre ssure. Due on due Goal Vitamin D. Due on due Goal HPV testing. Due on 029 due Goal HPV. Due on due Goal TSH. Due on due Goal Vitamin B12. Due on due Goal Hemoglobin (Pree chika/HR 9 months). Due on due Goal Urinalysis due Goal Hematocrit/Hemog lobin. Due on due Goal ECG. Due on due Goal Lipid panel. Due on due Goal Urinalysis due Goal Diabetes screening. Due on due Goal CBC. Due on due Goal Pap/HPV testing. Due on due Goal Tobacco Use Scre ening. Due on due Goal Follow up Plan f or abnormal BMI (Less than 18.5, greater than 25). Due on due Goal HIV screen due Goal PAP. Due on due Goal Depression scree cinda. Due on due Goal Unhealthy drug use screening due Goal Tobacco Use Cess ation Counseling. Due on due Goal Generalized Anxi ety Disorder - 7 (RICHA-7). Due on due Goal Vitamin B12. Due on due Goal Obtain Height, W eight, and BMI. Due on due Goal CMP. Due on due Goal Tobacco screening. Due on due Goal HPV. Due on due Goal TSH. Due on due Goal Vitamin D. Due on due Goal Hepatitis C Screening due Goal Influenza vaccine. Due on due Goal HPV testing. Due on due Goal Hematocrit/Hemog lobin. Due on due Goal Obtain blood Pre ssure. Due on due Goal Hemoglobin (Pree chika/HR 9 months). Due on due Goal ECG. Due on due Goal Generalized Anxi ety Disorder - 7 (RICHA-7). Due on due Goal Obtain Height, W eight, and BMI. Due on due Goal HIV screen due Goal CMP. Due on due Goal Influenza vaccine. Due on due Goal TSH. Due on due Goal Vitamin B12. Due on due Goal Unhealthy drug use [...] Goal Tobacco screening. Due on due Goal Urinalysis due Goal Obtain blood Pre ssure. Due on due Goal ECG. Due on due Goal Lipid panel. Due on due Goal HPV testing. Due on due Goal Lipid panel. [...] Goal Diabetes screening. Due on due Goal ECG. Due on due Goal Urinalysis due Goal Vitamin B12. Due on due Goal HPV testing. Due on due Goal CBC. Due on due Goal Obtain blood Pre ssure. Due on due Goal Lifestyle education regardin g diet completed Goal Tobacco cessation counseling completed Goal Lipid panel. Due on due Goal Tobacco screening. Due on due Goal Tobacco Use Cess ation Counseling. Due on due Goal TSH. Due on due Goal PAP. Due on due Goal HIV screen due Goal Depression scree cinda. Due on due Goal Tobacco Use Scre ening. Due on due Goal Drug Abuse Scree cinda Test (DAST-10). Due on due Goal Vitamin B12. Due on due Goal Hepatitis C Screening due Goal HPV testing. Due on due Goal Vitamin D. Due on due Goal Follow up Plan for abnormal BMI (Less than 18.5, greater than 25). Due on due Goal Influenza vaccine. Due on due Goal HPV. Due on [...] A due Goal Tobacco screening. Due on due Goal Unhealthy drug use [...] cinda Test (DAST-10). Due on due Goal Lifestyle education regardin [...] Use Scre ening. Due on due Goal Mammogram. Due on due Goal HIV screen due Goal Hepatitis C Screening due Goal PAP. Due on due Goal CBC. Due on due Goal Vitamin B12. Due on due Goal Obtain Height, W [...] due Goal Colonoscopy. Due on due Goal Urinalysis due Goal Lifestyle education regardin g diet completed Goal Obtain Height, W eight, and BMI. Due on due Goal Influenza vaccine. Due on due Goal Tobacco Use Scre ening. Due on due Goal HPV testing. Due on 029 due Goal Mammogram. Due on 4 due Goal Colonoscopy. Due on 033 due Goal HIV screen due Goal Vitamin D. Due on 5 due Goal HPV. Due on due Goal Hepatitis C Screening due Goal CBC. Due on due Goal Obtain blood Pre ssure. Due on due Goal TSH. Due on due Goal Diabetes screening. Due on A due Goal Drug Abuse Scree cinda Test (DAST-10). Due on due Goal Unhealthy drug use screening due Goal CMP. Due on due Goal Tobacco Use Cess [...] Lipid panel. Due on 029 due Goal ECG. Due on due Goal Vitamin B12. Due on due Goal Urinalysis due Goal Generalized Anxi ety Disorder - 7 (RICHA-7). Due on due Goal Vitamin D. Due on due Goal Vitamin B12. Due on due Goal Tobacco Use Cess ation Counseling. Due on due Goal Hepatitis C Screening due Goal CMP. Due on due Goal HIV screen due Goal Tobacco Use Scre ening. Due on due Goal Diabetes screening. Due on A due Goal Depression scree cinda. Due on due Goal HPV. Due on due Goal PAP. Due on due Goal Mammogram. Due on due Goal TSH. Due on due Goal HPV testing. Due [...] - 7 (RICHA-7). Due on due Goal Pap/HPV testing. Due [...] due Goal Colonoscopy. Due on due Goal Drug Abuse Scree cinda Test (DAST-10). Due on due Goal Lipid panel. Due on due Goal CBC. Due on due Goal PAP. Due on due Goal Diabetes screening. Due on A due Goal HIV screen due Goal Mammogram. Due on due Goal HPV. Due on due Goal ECG. Due on due Goal Hepatitis C Screening due Goal Follow up Plan f or abnormal BMI (Less than 18.5, greater than 25). Due on due Goal Urinalysis due Goal Obtain blood Pre ssure. Due on due Goal Tobacco Use Cess ation Counseling. Due on due Goal Lifestyle education regardin g diet completed Goal Depression scree cinda. Due on due Goal HPV. Due on due Goal Vitamin B12. Due on 025 due Goal Lipid panel. Due on due [...] due Goal PAP. Due on due Goal HPV testing. Due on due Goal CMP. Due on due Goal Hepatitis C Screening due Goal Generalized Anxi ety Disorder - 7 (RICHA-7). Due on due Goal Obtain Height, W eight, and BMI. Due on due Goal Obtain blood Pre ssure. Due on due Goal ECG. Due on due Goal Unhealthy drug use screening due Goal Colonoscopy. Due on 033 due Goal Urinalysis due Goal Tobacco Use Scre ening. Due on due Goal HIV screen due Goal Lipid panel. Due on 029 due Goal Depression scree cinda. Due on due Goal CBC. Due on due Goal Vitamin D. Due on 5 due Goal Mammogram. Due on due Goal Tobacco Use Cess ation Counseling. Due on due Goal Diabetes screening. Due on A due Goal Hepatitis C Screening due Goal Tobacco Use Scre ening. Due on due Goal TSH. Due on due Goal Unhealthy drug use screening due Goal Obtain Height, W eight, and BMI. Due on due Goal Pap/HPV testing. Due on due Goal HIV screen due Goal Colonoscopy. Due on 033 due Goal HPV testing. Due on 029 due Goal HPV. Due on due Goal [...] on A due Goal Mammogram. Due on 3 due [...] Urinalysis due Goal Vitamin B12. Due on due Goal Generalized Anxi ety Disorder - 7 (RICHA-7). Due on due Goal Drug Abuse Scree cinda Test (DAST-10). Due on due Goal HPV. Due on due Goal Obtain blood Pre ssure. Due on due Goal ECG. Due on due Goal Mammogram. Due on due Goal TSH. Due on due Goal PAP. Due on due Goal Tobacco Use Scre ening. Due on due Goal Diabetes screening. Due on A due Goal Obtain Height, W eight, and BMI. Due on due Goal Unhealthy drug use screening due Goal CBC. Due on due Goal Drug Abuse Scree cinda Test (DAST-10). Due on due Goal Depression scree cinda. Due on due Goal Generalized Anxi ety Disorder - 7 (RICHA-7). Due on due Goal Hepatitis C Screening due Goal Pap/HPV testing. Due on due Goal Influenza vaccine. Due on due Goal CMP. Due on due Goal Vitamin D. Due on due Goal Vitamin B12. Due on 025 due Goal Obtain blood Pre ssure. Due on due Goal Lipid panel. Due on 029 due Goal Colonoscopy. Due on 033 due Goal HIV screen due Goal Tobacco Use Cess ation Counseling. Due on due Goal ECG. Due on due Goal HPV. Due on due Goal HPV testing. Due on due Goal Urinalysis due Goal Follow up Plan f or abnormal BMI (Less than 18.5, greater than 25). Due on due Goal Lifestyle education regardin g diet completed Goal Tobacco Use Scre ening. Due on due Goal Obtain Height, W eight, and BMI. Due on due Goal Diabetes screening. Due on due Goal Pap/HPV testing. Due [...] Goal Lipid panel. Due on due Goal Obtain blood Pre ssure. Due on due Goal Vitamin B12. Due on 025 due Goal ECG. Due on due Goal Colonoscopy. Due on due Goal CMP. Due on due Goal CBC. Due on due Goal PAP. Due on due Goal Urinalysis due Goal Follow up Plan f or abnormal BMI (Less than 18.5, greater than 25). Due on due Goal Drug Abuse Scree cinda Test (DAST-10). Due on due Goal Tobacco Use Scre ening. Due on due Goal Mammogram. [...] Goal Influenza vaccine. Due on due Goal Urinalysis due Goal Hepatitis C Screening due Goal Diabetes screening. Due on A due Goal HPV. Due on due Goal HPV testing. Due on due Goal Vitamin B12. Due on due Goal Colonoscopy. Due on 033 due Goal ECG. Due on due Goal Lifestyle education regardin g diet completed Goal PAP. Due on due Goal Tobacco [...] A due Goal Lipid panel. Due on due Goal Pap/HPV testing. Due [...] due Goal Hepatitis C Screening due Goal CMP. Due on due Goal Follow up Plan f or abnormal BMI (Less than 18.5, greater than 25). Due on due Goal Lipid panel. Due on 028 due Goal HPV. Due on due Goal [...] Goal Unhealthy drug use screening due Goal Urinalysis. Due on due Goal ECG. Due on due Goal Obtain blood Pre ssure. Due on due Goal HIV screen due Goal Vitamin B12. Due on due Goal Lifestyle education regardin g diet completed Goal HPV. Due on due Goal Influenza vaccine. Due on Oc due Goal PAP. Due on due Goal Diabetes screening. Due on A due Goal HPV testing. Due on due Goal Lipid panel. Due on due Goal Follow up Plan f or abnormal BMI (Less than 18.5, greater than 25). Due on due Goal Hepatitis C Screening due Goal CBC. Due on due Goal Unhealthy drug use screening due Goal Drug Abuse Scree icnda Test (DAST-10). Due on due Goal Obtain [...] Goal Urinalysis. Due on 24 due Goal Tobacco Use Cess ation Counseling. [...] screening. Due on due Goal Tobacco Use Cess ation Counseling. Due on due Goal Obtain Height, W eight, and BMI. Due on due Goal Influenza vaccine. Due on due Goal CMP. Due on due Goal Tobacco Use Scre [...] Goal Mammogram. Due on 3 due Goal Hepatitis C Screening due Goal Diabetes screening. Due on due Goal Depression scree cinda. Due on due Goal TSH. Due on due Goal HIV screen due Goal Drug Abuse Scree cinda Test (DAST-10). Due on due Goal CBC. Due on due Goal Lipid panel. Due on 028 due Goal Tobacco Use Scre ening. Due on due Goal Obtain Height, W eight, and BMI. Due on due Goal Vitamin D. Due on due Goal Vitamin B12. Due on 024 due Goal Obtain blood Pre ssure. Due on due Goal Unhealthy drug use screening due Goal Pap/HPV testing. Due on due Goal HPV. Due on due Goal CMP. Due on due Goal ECG. Due on due Goal Colonoscopy. Due on 033 due Goal Tobacco Use Cess ation Counseling. Due on due Goal Urinalysis. Due on 24 due Goal Generalized Anxi ety Disorder - [...] Goal CMP. Due on due Goal Tobacco Use Scre ening. Due on due Goal Vitamin D. Due on due Goal Vitamin B12. Due on due Goal Pap/HPV testing. Due on due Goal ECG. Due on due Goal HIV screen due Goal Lipid panel. Due on due Goal Obtain blood Pre [...] Goal Pap/HPV testing. Due on due Goal Depression scree cinda. [...] due Goal ECG. Due on due Goal Urinalysis. Due on due Goal HPV testing. Due on 023 due Goal HIV screen due Goal Vitamin B12. Due on 024 due Goal Influenza vaccine. Due on due Goal TSH. Due on due Goal Tobacco Use Cess ation Counseling. Due on due Goal Obtain blood Pre ssure. Due on due Goal Vitamin D. Due on due Goal Influenza vaccine. Due on due Goal Lipid panel. Due on 028 due Goal Colonoscopy. Due on 033 due Goal Hepatitis C Screening due Goal PAP. Due on due Goal HIV screen due Goal CBC. Due on due Goal Drug Abuse Scree cinda Test (DAST-10). Due on due Goal HPV testing. Due on 023 due Goal Generalized Anxi ety Disorder - 7 (RICHA-7). Due on due Goal Depression scree cinda. Due on due Goal CMP. Due on due Goal Vitamin B12. Due on 024 due Goal Pap/HPV testing. Due on due Goal Tobacco Use Scre ening. Due on due Goal Urinalysis. Due on due Goal Obtain blood Pre [...] screening due Goal Influenza vaccine. Due on Oc due Goal Generalized Anxi ety Disorder - 7 (RICHA-7). Due on due Goal Vitamin B12. Due on due Goal Urinalysis. Due on due Goal Lifestyle education regardin g diet completed Goal Tobacco cessation counseling completed Goal HPV testing. Due on due Goal Tobacco Use Cess ation Counseling. Due on due Goal Influenza vaccine. Due on Oc due Goal Vitamin B12. Due on due [...] - 7 (RICHA-7). Due on due Goal HPV. Due on due Goal TSH. Due on due Goal Pap/HPV testing. Due on due Goal Mammogram. Due on 3 due Goal Hepatitis C Scre ening. Due on due Goal Influenza vaccine. Due on due Goal Vitamin B12. Due on 023 due Goal CMP. Due on due Goal HPV testing. Due on 023 due Goal Tobacco Use Cess ation Counseling. Due on due Goal Drug Abuse Scree cinda Test (DAST-10). Due on due Goal Obtain Height, W eight, and BMI. Due on due Goal Colonoscopy. Due on 033 due Goal CBC. Due on due Goal Depression scree cinda. Due on due Goal PAP. Due on due Goal Vitamin D. Due on due Goal Follow up Plan f or abnormal BMI (Less than 18.5, greater than 25). Due on due Goal Obtain blood Pre ssure. Due on due Goal Urinalysis. Due on due Goal Lipid panel. Due [...] Lipid panel. Due on 023 due Goal PAP. Due on due Goal Colonoscopy. Due on 033 due Goal Generalized Anxi ety Disorder - 7 (RICHA-7). Due on due Goal Vitamin D. Due on due Goal Depression scree cinda. Due on due Goal Vitamin B12. Due on due Goal Tobacco Use Cess ation Counseling. Due on due Goal HPV testing. Due on due Goal Urinalysis. Due on due Goal Pap/HPV testing. Due on due Goal HIV screen. Due on due Goal CMP. Due on due Goal Influenza vaccine. Due on due Goal Obtain Height, W [...] cinda Test (DAST-10). Due on due Goal Urinalysis. Due on due Goal Obtain Height, W eight, and BMI. Due on due Goal CBC. Due on due Goal Obtain blood Pre ssure. Due on due Goal TSH. Due on due Goal CT-Colonography. Due on due Goal HPV testing. Due on 023 due Goal ECG. Due on due Goal Unhealthy drug u se screening. Due on due Goal Influenza vaccine. Due on Oc due Goal HIV screen. Due on due Goal Vitamin D. Due on due Goal Generalized Anxi ety Disorder - 7 (RICHA-7). Due on due Goal Diabetes screening. Due on due Goal Colonoscopy. Due on due Goal PAP. Due on [...] Goal HPV testing. Due on due Goal Follow up [...] due Goal Urinalysis. Due on due Goal Tobacco Use Scre [...] C Scre ening. Due on due Goal FIT-DNA. Due on due Goal CMP. Due on [...] - 7 (RICHA-7). Due on due Goal FOBT. Due on due Goal HPV. Due on due Goal HPV testing. Due on 023 due Goal Influenza vaccine. Due on Oc due Goal Depression scree cinda. Due on due Goal Dietary manageme nt education, guidance, and counseling completed Goal Tobacco cessation counseling completed Goal PAP. Due on due Goal Hepatitis C Scre ening. Due on due Goal Tobacco Use Scre ening. Due on due Goal Generalized Anxi ety Disorder - 7 (RICHA-7). Due on due Goal Diabetes screening. Due on A due Goal Influenza vaccine. Due on Oc due Goal Mammogram. Due on due Goal Unhealthy drug u se screening. Due on due Goal Depression scree cinda. Due on due Goal Vitamin B12. Due on due Goal ECG. Due on due Goal FIT. Due on due Goal Vitamin D. Due on due Goal HIV screen. Due [...] due Goal FIT-DNA. Due on due Goal Obtain Height, W [...] Goal Lipid panel. Due on due Goal Mammogram. Due on [...] Goal HPV testing. Due on due Goal Follow up Plan f or abnormal BMI (Less than 18.5, greater than 25). Due on due Goal CMP. Due on due Goal Mammogram. Due on due Goal Generalized Anxi ety Disorder - 7 (RICHA-7). Due on due Goal Lipid panel. Due on due Goal Hepatitis C Scre ening. Due on due Goal CT-Colonography. Due on due Goal Depression scree cinda. Due on due Goal Obtain Height, W eight, and BMI. Due on due Goal Vitamin D. Due on due Goal FOBT. Due on due Goal Diabetes screening. Due on due Goal Vitamin B12. Due on due Goal FIT. Due on due Goal Unhealthy drug u se screening. Due on due Goal FIT-DNA. Due on due Goal Drug Abuse Scree cinda Test (DAST-10). Due on due Goal HIV screen. Due on due Goal PAP. Due on due Goal Pap/HPV testing. Due on due Goal Colonoscopy. Due on 023 due Goal HPV. Due on due Goal TSH. Due on due Goal CBC. Due on due Goal Tobacco cessation counseling completed Goal Dietary manageme nt education, guidance, and counseling completed Goal Follow up Plan f or abnormal BMI (Less than 18.5, greater than 25). Due on due Goal FOBT. Due on due Goal CBC. Due on due Goal HIV screen. Due on due Goal Mammogram. Due on due Goal Diabetes screening. Due on due Goal Obtain Height, W eight, and BMI. Due on due Goal Tobacco Use Cess ation Counseling. Due on due Goal Influenza vaccine. Due on due Goal Lipid panel. Due on 023 due Goal Drug Abuse Scree cinda Test (DAST-10). Due on due Goal Hepatitis C Scre ening. Due on due Goal PAP. [...] due Goal Tobacco cessation counseling completed Goal Generalized Anxi ety Disorder - 7 (RICHA-7). Due on due Goal CBC. Due on due Goal Colonoscopy. Due on 022 due Goal CMP. Due on due Goal Vitamin D. Due on due Goal Mammogram. Due on due Goal HIV screen. Due on due Goal Drug Abuse Scree cinda Test (DAST-10). Due on due Goal Follow up Plan f or abnormal BMI (Less than 18.5, greater than 25). Due on due Goal Influenza vaccine. Due on due Goal Tobacco Use Cess ation Counseling. Due on due Goal Diabetes screening. Due on due Goal PAP. Due on due Goal Lipid panel. Due on due Goal Hepatitis C Scre ening. Due on due Goal FOBT. Due on due Goal HPV testing. Due on due Goal Vitamin B12. Due on due Goal TSH. Due on due Goal Obtain Height, W eight, and BMI. Due on due Goal Depression scree cinda. Due on due Goal Tobacco Use Scre ening. Due on due Goal Lifestyle education regardin [...] Goal Vitamin D. Due on due Goal Vitamin B12. Due on due Goal Follow up Plan [...] Diabetes screening. Due on O due Goal Hepatitis C Scre ening. Due on due Goal HIV screen. Due on due Goal Depression scree cinda. [...] - 7 (RICHA-7). Due on due Goal Follow up Plan [...] on due Goal Lipid panel. Due on 022 due Goal Tobacco cessation counseling completed Referral Ordered: X-RAY EXAM CHEST 2 VIEWS Bilateral lungs Appointment date/timeframe: 08/17/2025 ordered Referral Ordered: CT ABDOMEN W/O & W/DYE Left abdomen Appointment date/timeframe: 08/17/2025 ordered Referral Referred To: [facility] Ordered: Referrals: Gastroenterology. [facility]. Location: [place]. Evaluate and treat. Diagnostic testing Appointment date/timeframe: 09/10/2025 ordered Referral Ordered: SCR MAMMO BI INCL CAD Bilateral breast Appointment date/timeframe: 05/18/2025 ordered Referral Ordered: US EXAM, ABDOM, COMPLETE Right abdomen Appointment date/timeframe: 05/18/2025 ordered Referral Ordered: Referrals: Orthopedic Surgery. Evaluate and treat Appointment date/timeframe: 06/20/2024 ordered Referral Ordered: X-RAY EXAM OF LOWER SPINE Bilateral back Appointment date/timeframe: 1 Day ordered Referral Referred To: [facility] Latasha lundberg Ordered: Referrals: Psychiatry. [facility] Latasha lundberg. Location: [place]. Consult Appointment date/timeframe: 1 Day ordered [facility]: [facility] Location: [place], [place]. Evaluate and treat Appointment date/timeframe: 12/28/2022 ordered Referral Ordered: referred to Gastroenterology ordered Referral Referred To: [facility] Ordered: Referrals: Dermatology. [facility]. Location: [place]. Evaluate and treat Appointment date/timeframe: 11/03/2022 ordered Appointment [facility] Future Order: Lab Order Comp. Me tabolic Panel (14) ([id number]), Scheduled for: Ordered Future Order: Lab Order T3 Uptak e ([id number]), Scheduled for: Ordered Future Order: Lab Order TSH Rfx on Abnormal to Free T4 ([id number]), Scheduled for: Ordered Future Order: Lab Order PTH, Int act ([id number]), Scheduled for: Ordered Future Order: Lab Order Hemoglob in A1c ([id number]), Scheduled for: Ordered Future Order: Lab Order CBC With Differential/Platelet ([id number]), Scheduled for: Ordered Future Order: Lab Order Lipid Pa yeny ([id number]), Scheduled for: Ordered Future Order: Lab Order URINALYS IS, AUTO, W/O SCOPE ([id number]), Collected on: Ordered Future Order: Lab Order CBC (INC LUDES DIFF/PLT) ([id number]), Scheduled for: Ordered Future Order: Lab Order COMPREHE NSIVE METABOLIC PANEL ([id number]), Scheduled for: Ordered Future Order: Lab Order HEMOGLOB IN A1C ([id number]), Scheduled for: Ordered Future Order: Lab Order LIPID PA YENY ([id number]), Scheduled for: Ordered Future Order: Lab Order TSH W/RE FLEX TO FREE T4 ([id number]), Scheduled for: Ordered Future Order: Lab Order VITAMIN D,25-OH,TOTAL,IA ([id number]), Scheduled for: Ordered Future Order: Lab Order VITAMIN B12 ([id number]), Scheduled for: Ordered History Of Present Illness Encounter Date Complaint History Of Prese nt Illness Chest Congestion Arcelia is here tod ay due to continued chest congestion, productive coughing, yellow and white in color. Chest congestion has been present for almost 2 months now. Abdominal pain Onset: 1 Year. T he severity of the problem is moderate. The problem has worsened. The symptoms are constant. The location is left upper quadrant and left lower quadrant. Aggravating factors include anxiety, constipation and milk/dairy products. Symptoms are not aggravated by intercourse. Associated symptoms include bloating, constipation and diarrhea. Pertinent negatives include flatulence and heartburn. Additional information: 05/18/25 US abd unremarkable. Pt feels something is wrong. Will order CT of abd w/ and w/o. f/u labs Arcelia is here toda y for f/u on recent labs.CBC okA1c 5.8- pre dmTSH okLDL 64, Trigs 361 (was not fasting)Alk phos 155today she is also congested, feels like it is in her chest. denies feverthis has been going on for about 1 week. cough/sore throat Arcelia is here to day for sore throat, cough, and nausea x 1 week.Strep testing +1.2 billion units of Bicillin L-A bloating Onset: 1 year ag o. Duration is 1 Month. It occurs constantly. The problem is unchanged. Location is epigastric, LUQ, RUQ, LLQ, RLQ. The client describes it as fullness. Context: after meals. Symptom is aggravated by heavy meals, pressure to abdomen, respiration, spicy foods, anxiety, constipation, fatty foods and prolonged sitting. Relieving factors include bowel movement, flatus, Nexium and proton pump inhibitors. Additional information: Has not recently traveled out of country. Does not have reptilian pets. Does not have well water. Ongoing discomfort, not pain over the past year, worse in the past month. Hx of hiatal hernia, ulcers, and IBS. Feels IBS is worse w/ start back to school. Would like referral to GI for scope. anxiety/depression Arcelia reports s he is feeling more down since the stop of Pristiq and transition to Lexapro. Hard to leave the house, more introverted. Wondering if she needs a new medication. Sees Alyson Henao APRN- . I consulted with Alyson today and we decided she could take 10 mg of the Olanzapine she was taking before to help transition through the medication change. Arcelia is in agreement with this, reports she has 1 bottle of Olanzapine 10 mg at home. She will f/u Alyson at the end of July. She will continue Lexapro for now. Arcelia reports that last she had an estrogen pellet inserted, and since, her mood has been all over the place She f/u with that clinic next week and will have hormone levels checked. Follow up on labs Arcelia is here [...] completed 01/19/25. Pt scored 1, provider aware. -AW,CM Prapare Prapare screenin g completed 01/19/25. -AW,CM chest congestion Arcelia is here tod ay with complaints of chest congestion that has been going on for 2 weeks. Pt stated that she is coughing up yellow, thick sputum. 1 gram of Rocephin and 80 mg/mL of Depo given in left buttock. Pt tolerated well, band aide applied. telehealth Patient and/or G ronnyian has verified being in the [facility] and has given verbal consent to be treated via telehealth/telephone consultation. Today's visit is being completed via; YumZing videoPatient and/or Guardian provided full consent to [...] neg, urine was +.. telehealth Patient and/or G gem has verified being in the [facility] and has given verbal consent to be [...] FLU VACCINE. ADMINISTERED INFLUENZA VACCINE AFLURIA, LOT# [id number], EXP: 03.31.25. PT TOLERATED WELL, BAND AID [...] Smoking cessation declined.Denies vaginal complaints.Last Mammo in 6.9.2022- [facility]- , has an appt this Wednesday for [...] much better than her last visit- completed gugjmglhoybK1h 5.8, Glucose 108- new PreDM- handouts given. Diet modifications recommended to decrease processed sugars, carbsVit D 77TSH 3.70B12 1472WBC 17.0- Sick at time of collection- treatedTotal Cholesterol 162HDL 42Trigs 130, LDL 97- Much improvedShe states she is doing wellTaking her medications as instructedMammo- [facility]- last year - scheduled in April for [...] increased depressed mood. Had 1st intake with [facility] last weekSees Alyson on the for vyvance- Arcelia has trouble completing tasks, staying focused. Depression. TSH labs repeated today- reports compliance with meds for past 6 weeks, will consider upping dose if tsh remains high. No SI/HI. Medication Arcelia is here toda to discuss her medication.she was seeing Dr. Hdz for er vyvance, but he states he will not see her any longer while she is coming here.UDS + AMP, otherwise Larissa is transitioning into [facility] for medication management.Dr. Thomas has agreeded to give 1 month of vyvance until [facility] on 06.28.23 with Zohra(won't see Khadijah until 07.22.23)feeling emotional over the weekendShe states she is taking her medication as instructedBriseyda also admits she does not always take her levothyroxine alone, and sometimes esSyesi states for the past week she has taken it daily.TSH was elevated in May again 7.69Discussed importance of taking levothyroxine alone - and she will try this coming weeks- Repeat labs Mid AugRT 2 weeks f/u on anxiety-depression. She states [...] well dressed todayShe did not go to [facility]- has appt today at 10, but does [...] stated she is currently worried about her iezylk-bs-ers. She didn't show much emotion today. Pt counseled on the importance of taking her medications as prescribed and keeping follow up appointments. Pt made an appointment for counseling with [facility] this AM. follow up on meds Arcelia [...] D3 and glucosimineMood has been down-tearfulalso started 0-JNA-ymppmdk to stop until adjusts to current medicationsRTC [...] onlanzaprine and lexapro.I have sent her to [facility] for counsling and med management, but she [...] little while, then stops.Mood is reported as bettershe just got a new horse Jay that she is caring for follow up meds Arcelia is here toda y as a walk-in patient, claiming she needs to be seen for just life. She has been referred to [facility] for therapy, and made several appointments, but has not kept the appointments.She missed her meds last weekShe still has difficulty with concentrating, has no motivationGene sight testing reviewed....will add welbutrin Escitalopram metabolizes quicklyzyprexa good normal metablolismHot flashes- states she is having more hot flasheswas on prednisone last week for a colddoing bettershe went to an urgent careRTC 2 weeks [...] loss. Additional information: has appt w/ gastro [facility] for colonoscopy on 12/28/22 at 10:30, reports [...] did not go to her appt with [facility] because "I feel like I am ok. GERD> Arcelia reports she continues to have gerd symptoms.She states there was a while she was without her pantaprazole and symptoms were worse.She would like to have another Endoscopy/Colonoscopylast was done w/ Margarita Schumacher [facility]- per pt report.She states she sometimes [...] unable to focusShe has an appt w/ [facility] on the and will set up appt w/ Khadijah for medication managementInitially bp was elevatedRepeat 116/62hr elevated initially 112, now is 94She reports she has IBS, has had some bloating taking benefiberworks well. 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 New medication is [...] accomplish the same effect. SHe is to rtc in 2 weeksADHD- pt states she was taking vyvance, but cost over $300I am unable to write for this medication. I will suggest getting her into to be seen so that they may continue her medication if desired. Next labs will add Gluten testing to r/o ciliac disease.Reports bloating, joint stiffness, and general malaise establish care [facility]. She has been seeing Isis [...] GeneSight Testing Instructions Date Instruction Additional Infor mation Cover your mouth whe n coughing, cough into your elbow. Place cough drops in the freezer to cool and soothe throat. Wear a mask when in public or near people. May use 1 tsp of honey every 4 hrs as needed for cough. Related to Cough Giving encouragement to exercise Related to Body mass index [BMI] 29.0-29.9, adult Lifestyle education regarding di et Related to Body mass index [BMI] 29.0-29.9, adult Take medication devan y at the same [...] care. Patient verbalized understanding. Related to Prediabetes Low fat, low cholest clemente diet. Avoid fatty, fried, and greasy foods. Physical activity as tolerated. Counseled on risks of associated comorbidities, such as heart disease and stroke. Encouraged avoidance of tobacco products. Related to Hyperlipidemia Low fat diet.If you have RUQ pain that will not go away, uncontrolled vomiting, go to the ER.Low fat/grease diet Related to Abnormal level of alkaline phosphatase Patient instructed o f the importance of [...] than 90. Related to Essential (primary) hypertension Giving encouragement to exercise Related to Body mass index [BMI] 28.0-28.9, adult Lifestyle education regarding di et Related to Body mass index [BMI] 28.0-28.9, adult Clear liquid diet, a dvance as tolerated. Take any medications as instructed. Drink plenty of fluids. If symptoms worsen, or if urine output becomes diminished, or you have uncontrolled pain go to the ER for evaluation. Verbalizes an understanding Related to Nausea w/o vomiting you may consider Bobby ck cohosh 20-60 mg bid for mood swings, vaginitis, and hot flashes(Do not use if you have a history of breast cancer)Take Vitamin E daily to help with dry skin. Related to Menopause Patient counseled on doing warm salt water gargles, completing any and all medications prescribed, may use OTC analgesics as needed.Bicillin L-A injection given today in office Related to Streptococcal sore throat Patient educated on the importance of maintaining glycemic control. Counseled on diet, exercise and other lifestyle factors that can impact glucose control. Instructed on the importance of taking all medications as prescribed. Patient aware of the importance of diabetic eye exams, dental check ups, foot exams and diabetic foot care. Patient verbalized understanding. Related to Prediabetes Counseled patients o n medications for reflux. Discussed lifestyle modifications including but not limited to elevating the head of the bed, limiting fatty, greasy, spicy food intake. Avoid heavy meals and caffeine intake within 2 hours of bedtime. If applicable, reduce/discontinue tobacco use and/or alcohol use, as both can make reflux symptoms worse. Related to GERD disease w/ esophagitis, w/o bleeding Eat a high fiber t. Decrease stress when able. Increase the amount of water you consume, at least 8 8 oz. glasses daily. Exercise daily 3-5 times weekly. Avoid gaseous causing foods, avoid fried, greasy fatty foods, avoid dairy. May use Miralax or Metamucil for regularity, or for clean out if very constipated. Will refer to GI for possible endoscopy/colonoscopy. Related to Irritable bowel syndrome Take medication devan y at the same time, and on an empty stomach. Get adequate rest daily and 30 minutes of moderate exercise most days of the week. Related to Hypothyroidism, unspecified Restart Olanzapine 1 0 mg dailyKeep f/u appointment w/ Alyson at the end julyNotify office if you have worsening symptoms of depression. Related to Major depression Giving encouragement to exercise Related to Body mass index [BMI] 27.0-27.9, adult Lifestyle education regarding di et Related to Body mass index [BMI] 27.0-27.9, adult It is recommended to stop smoking/vaping to increase overall health and decrease risk of cardiovascular disease. If you wish to stop smoking/vaping, there is a free online [place] from smoking course offered through our local health department. You may call [phone] for more information.Use Nicotine gum as instructed [...] stop smoking/vaping, there is a free online [place] from smoking course offered through our local health department. You may call [phone] for more information.Use nicotine patches and gum [...] stop smoking/vaping, there is a free online [place] from smoking course offered through our local health department. You may call [phone] for more information. Related to Nicotine dependence, [...] help with dry skin.Keep upcoming appointment with NANOTECHNOLOGY TECHNICIAN for further evaluation Related to Menopause Giving [...] stop smoking/vaping, there is a free online [place] from smoking course offered through our local health department. You may call [phone] for more information. Related to Nicotine dependence, [...] exercise if able to tolerate.Continue care with [facility] and current medications Related to Anxiety disorder, [...] adult; and Caloric intake should be around 5317-4610 for a female, and 7420-8199 for an adult male. Fiber intake should [...] education. You may also refer to the [place] [employer] website for further low sodium, [...] stop smoking/vaping, there is a free online [place] from smoking course offered through our local health department. You may call [phone] for more information.Use nicotine patches as instructed.RTC [...] You MUST keep your upcoming appointments with [facility], or you will be with out this [...] stop smoking/vaping, there is a free online [place] from smoking course offered through our local health department. You may call [phone] for more information.Use nicotine patches as instructed.RTC [...] avoidance of tobacco products. Related to Hyperlipidemia Naren-23-2023 Take medication devan y at the same [...] stop smoking, there is a free online [place] from smoking course offered through our local health department. You may call [phone] for more information. Related to Nicotine dependence, [...] stop smoking, there is a free online [place] from smoking course offered through our local health department. You may call [phone] for more information. Related to Nicotine dependence, [...] stop smoking, there is a free online [place] from smoking course offered through our local health department. You may call [phone] for more information. Related to Nicotine dependence, [...] to Body mass index [BMI] 29.0-29.9, adult Continue current dose of medicat ion Related to Hypothyroidism Keep your up coming appt with [facility] for medication management Related to ADHD Referral to Vidal lyles at [facility] We will call with an appointment once obtained or you may contact their office [facility] [phone] Related to Changes in skin texture Discussed [...] improve depression symptoms Related to Mood disorder Discussed stress red uction techniques. Take medications as prescribed. Limit caffeine and nicotine. Try to follow a set sleep schedule. Get daily moderate exercise if able to tolerate.Increase fiber and water consumptionMay use simethicone 80 mg as instructed for gas Related to Mixed irritable bowel syndrome I am unable to write for your ADHD medications, but am glad to refer you to [facility] for medication management. Related to ADHD Take [...] Anxiety disorder, unspecified Assessments Type Assessment Date assessment Cough assessment Abdominal pain assessment Body mass index [BMI] 29.0-29.9, adult Mental Status Date Cognitive Assessment Orientation - [place] ed to time, place, person, situation.
--- OUTSIDE RECORDS SUMMARY | 2025-08-16 16:18 | XMS_ITS | Clinical Summary ---
Author Organization Healthcare Address [address] [place] [address] Care Team Providers Care Gardening Supervisor Name Role Phone Unavailable Primary Care [...] [facility]-HIV Screening 1970 [facility]-Hepatitis C Screening 1970 [facility]-/Child/Adol SDOH Screenings 1970 [facility]- SDOH Screenings 1988 [...] Cancer Screening 07/10/2024 [facility]-HPV/Cotest 07/10/2024 07/10/2019, 05/20/2016 [id number] Vaccine ( season) 2025 12/20/2020, 11/20/2020 [facility]-Influenza [...] 06/04/2020 Mammography Breast Diagnostic Tomosynthesis Bilateral at [facility] 06/04/2020 Mammography Stereotactic Breast Biopsy Right at [facility] 06/04/2020 Mammography Stereotactic Breast Biopsy Each Additional Historical at [facility] 06/04/2020 Mammography Breast Post Biopsy Clip Bilateral at [facility] 01/10/2021 Mammography Breast Diagnostic Tomosynthesis Bilateral at [facility] 04/07/2022 Mammography Breast Screening Tomosynthesis Bilateral at [facility] 04/08/2023 Mammography Breast Screening Tomosynthesis Bilateral at [facility] BREAST COMPOSITION: The breasts are heterogeneously dense, which may obscure small masses. FINDINGS: There are post-biopsy clip(s) present in the left breast. There is no evidence of suspicious masses, calcifications, or other abnormal findings. us Self Referral Mammogram IMG BI PROCEDURES Final Result * Cytology (07/10/2019 12:00 AM EDT) 07/10/2019 07/10/2019 3:3 9 PM EDT Narrative SUNQUEST - 07/14/2019 5:59 AM EDT [facility] MR #: [id number] [facility] [address] [place], [place] [address] 1970 (Age: 48) FW Collect Date: 07/10/2019 00:00 Receipt Date: 07/10/2019 15:39 Page 1 DEPARTMENT OF PATHOLOGY AND LABORATORY MEDICINE CYTOPATHOLOGY REPORT Email: [email or web address] [id number] ATTENDING MD/Practitioner: Rupal Vasquez MD Service: [facility] Location: [facility] Reported: 07/14/2019 05:59 Collected: 07/10/2019 00:00 INTERPRETATION A. THIN PREP (CERVICAL/VAGINAL): NEGATIVE FOR INTRAEPITHELIAL LESION OR MALIGNANCY. SATISFACTORY FOR EVALUATION; ENDOCERVICAL/ TRANSFORMATION ZONE COMPONENT PRESENT. Slide scanned and imaged by [employer] ThinPrep Imaging System with manual review of [...] results is suggested (please call Microbiology at [phone] for results). CLINICAL INFORMATION: Menstrual History: Cyclic Date of Last Menstrual Period: {Not Provided} Other Clinical Conditions: If ASCUS and > 24 years of age, HPV/DNA testing requested. SPECIMEN DESCRIPTION: A: THIN PREP (CERVICAL/VAGINAL) THIN PREP PROCESS CELLULAR ENHANCEMENT ICD: F: A; RT IMAGE [id number] SNOMED CODES: A; [id number] In cases where a pathologist has signed out the report, the service has been rendered in part by a resident. The signing pathologist has performed and is responsible for the reported pathologic evaluation. Isis Vasquez MD LAB PATHOLOGY ORDERABLES Viktoriya guevara Result SUNQUEST from Last 3 Months or Most Recently Relevant to Health Maintenance Insurance [facility]
[2025-08-16 16:45] LABS: Blood Urea Nitrogen 10 mg/dl (7-17); Creatinine,Serum 0.60 mg/dl (0.52-1.04); Estimated Glomerular Filt Rate 104 ml/min (>60); GFR (African American) 126 ML/MIN (>60)
== END 2025-08-16 23:59 | disposition home or self-care (01) ==
LOC: LAB 16:16
PROVIDERS: PCP Nurse Practitioner Family; Visit Provider Nurse Practitioner Family
DX: Z01.89 Encounter for other specified special examinations (principal)
CPT/HCPCS: 36415; 82565; 84520

== ENCOUNTER 2025-08-17 08:18 | Outpatient (CLI) | payer BC, SELFPAY ==
--- OUTSIDE RECORDS SUMMARY | 2025-07-31 04:33 | XMS_ITS | Continuity of Care Document ---
Author Organization [facility] Address [address] [place] [address] Phone Care Team Providers Care Master Printer Name Role Phone Jacinto MSN, FEEDER/FOLDER, Emi Unavailable Unavai lable Allergies, Adverse Reactions, [...] Inj, methylpred acetate 1 mg OFFICE/OUTPATIENT VISIT, [facility] THER/PROPH/DIAG INJ, SC/IM Advance Directives Directive Yes / No Effective Date File Name No Information Encounters Encounter Description Practice Location Reason(s) For Visit Diagnoses Date Provider OFFICE/OUTPA TIENT VISIT, [facility], [address] [place] [address], [facility], tel:[phone] [facility] [place] Abdominal pain (chief complaint)C hest Congestion (chief complaint) CoughAbdominal painBody mass index [BMI] 29.0-29.9, adult Sep- 5 Casey Emi. [address], [place], [id number] , . tel: [phone] [facility], [address] [place] [address], [facility], tel:[phone] [facility] [place] No Information 5 Casey Emi. [address], [place], [id number] , . tel:[phone] [facility], [address] [place] [address], [facility], tel:[phone] [facility] [place] f/u labs (chief complaint) Abnormal level of alkaline phosphataseEssential (primary) hypertensionHyperlipidem iaHypothyroidism, unspecifiedPrediabetesAc [place] upper respiratory infection, unspecifiedBody mass index [BMI] 28.0-28.9, adult Sep-1 0- 5 Casey Emi. [address], [place], [id number] , . tel: [phone] [facility], [address] [place] [address], [facility], tel:[phone] [facility] [place] cough/sore throat (chief complaint)b loating (chief complaint)a nxiety/depr ession (chief complaint) Hypothyroidism, unspecifiedIrritable bowel syndromeGERD disease w/ esophagitis, w/o bleedingMenopausePrediab etesMajor depressionStreptococcal sore throatNausea w/o vomitingMotion sickness, sequelaBody mass index [BMI] 27.0-27.9, adult Aug- 5 Casey Emi. [address], [place], [address] [place] [address] , [place]. tel:[phone] [facility], [address] [place] [address], [facility], tel:[phone] [facility] [place] No Information 5 Casey Emi. [address], [place], [address] [place] [address] , [place]. tel:[phone] [facility], [address] [place] [address], [facility], [place] tel:[phone] [facility] [place] No Information 5 Casey Emi. [address], [place], [address] [place] [address] , . tel: [phone] [facility], [address] [place] [address], [facility], tel:[phone] [facility] [place] No Information 5 Casey Emi. [address], [place], [id number] , [place]. tel: [phone] [facility], [address] [place] [address], [facility], [place] tel:[phone] [facility] No Information 5 Casey Emi. [address], [place], [id number] , [place]. tel: [phone] [facility], [address] [place] [address], [facility], [place] tel:[phone] [facility] Encounter for screening mammogram for malignant neoplasm of breast 5 Casey Emi. [address], [place], [id number] , [place]. tel: [phone] [facility], [address] [place] [address], [facility], [place] tel:[phone] [facility] Follow up on labs (chief complaint) Nicotine dependence, cigarettes, w/ other nicotine-induced disorderPrediabetesMajor depressionHypothyroidism , unspecifiedHyperlipidemi aEssential (primary) hypertensionAbnormal level of alkaline phosphataseBody mass index [BMI] 26.0-26.9, adult 5 Casey Emi. [address], [place], [id number] , [place]. tel: [phone] [facility], [address] [place] [address], [facility], [place] tel:[phone] [facility] No Information 5 Casey Emi. [address], [place], [id number] , [place]. tel: [phone] [facility], [address] [place] [address], [facility], [place] tel:[phone] [facility] [place] Chest Congestion (chief complaint) Acute upper respiratory infection, unspecifiedBody mass index [BMI] 27.0-27.9, adult 5 Casey Emi. [address], [place], [address] [place] [address] , . tel: [phone] [facility], [address] [place] [address], [facility], tel:[phone] [facility] [place] FASTING LABS (chief complaint) Essential (primary) hypertension Casey Emi. [address], [place], [address] [place] [address] , . tel: [phone] [facility], [address] [place] [address], [facility], tel:[phone] [facility] [place] Depression Screening (chief complaint)P rapare (chief complaint)c hest congestion (chief complaint)t elehealth (chief complaint) Encounter for screening for depressionAcute upper respiratory infection, unspecifiedBody mass index [BMI] 28.0-28.9, adultEssential (primary) hypertensionNicotine dependence, cigarettes, w/ other nicotine-induced disorder 5 Casey Emi. [address], [place], [address] [place] [address] , . tel: [phone] [facility], [address] [place] [address], [facility], tel:[phone] [facility] [place] Acute upper respiratory infection, unspecified 5 Casey Emi. [address], [place], [id number] , . tel: [phone] [facility], [address] [place] [address], [facility], tel:[phone] [facility] [place] dysuria (chief complaint) DysuriaBody mass index [BMI] 28.0-28.9, adult Mar-0 3- 5 Casey Emi. [address], [place], [id number] , [place]. tel: [phone] [facility], [address] [place] [address], [facility], tel:[phone] [facility] [place] urinary urgency (chief complaint)t elehealth (chief complaint) Dysuria 5 Casey Emi. [address], [place], [id number] , [place]. tel: [phone] [facility], [address] [place] [address], [facility], tel:[phone] [facility] [place] LABS (chief complaint) Hypothyroidism, unspecified 4 Casey Emi. [address], [place], [id number] , [place]. tel: [phone] [facility], [address] [place] [address], [facility], [place] tel:[phone] [facility] [place] FOLLOW UP ON LABS (chief complaint) Body mass index [BMI] 27.0-27.9, adultEssential (primary) hypertensionMenopauseNic otine dependence, cigarettes, w/ other nicotine-induced disorderIrritable bowel syndrome 4 Casey Emi. [address], [place], [id number] , [place]. tel: [phone] [facility], [address] [place] [address], [facility], [place] tel:[phone] [facility] [place] lab collection (chief complaint) Emotional lability 4 Casey Emi. [address], [place], [id number] , [place]. tel: [phone] [facility], [address] [place] [address], [facility], tel:[phone] [facility] [place] No Information 4 Casey Emi. [address], [place], [address] [place] [address] , . tel: [phone] [facility], [address] [place] [address], [facility], tel:[phone] [facility] [place] FASTING LABS (chief complaint)F ROBERTA VACCINE (chief complaint) Essential (primary) hypertension 4 Casey Emi. [address], [place], [id number] , . tel: [phone] [facility], [address] [place] [address], [facility], tel:[phone] [facility] [place] follow up on labs (chief complaint) Hypothyroidism, unspecifiedHypercalcemia Abnormal level of alkaline phosphataseBody mass index [BMI] 26.0-26.9, adult 4 Casey Emi. [address], [place], [id number] , . tel: [phone] [facility], [address] [place] [address], [facility], tel:[phone] [facility] [place] lab collection (chief complaint) DysuriaEssential (primary) hypertension 4 Casey Emi. [address], [place], [address] , [place]. tel: [phone] [facility], [address] [place] [address], [facility], tel:[phone] [facility] [place] possible UTI/Yeast (chief complaint) DysuriaBody mass index [BMI] 25.0-25.9, adultUTIVaginitis 4 Casey Emi. [address], [place], [address] , [place]. tel: [phone] [facility], [address] [place] [address], [facility], [place] tel:[phone] [facility] Spondylolisthesis, lumbar region 4 Casey Emi. [address], [place], [address] , [place]. tel: [phone] [facility], [address] [place] [address], [facility], [place] tel:[phone] [facility] (chief complaint) Body mass index [BMI] 26.0-26.9, adultEncntr for engraver pantograph exam (general) (routine) w/o abn findingsEncntr screen for infections w sexl mode of transmissLow back pain, unspecified 4 Casey Emi. [address], [place], [address] , [place]. tel: [phone] [facility], [address] [place] [address], [address], [place] tel:[phone] [facility] follow up labs (chief complaint) Body mass index [BMI] 27.0-27.9, adultAnxiety disorder, unspecifiedEssential (primary) hypertensionHyperlipidem iaHypothyroidism, unspecifiedNicotine dependence, cigarettes, w/ other nicotine-induced disorderPrediabetes 4 Casey Emi. [address], [place], [address] , [place]. tel: [phone] [facility], [address] [place] [address], [address], [place] tel:[phone] [facility] sore throat (chief complaint) Essential (primary) hypertensionBody mass index [BMI] 27.0-27.9, adultAcute pharyngitisOtitis media, unspecified, right ear Apr- 7-202 4 Casey Emi. [address], [place], [id number] , [place]. tel:[phone] [facility], [address] [place] [address], [facility], tel:[phone] [facility] [place] f/u depression/ ear pain (chief complaint) Other seasonal allergic rhinitisMood disorderMajor depressionGERD disease w/ esophagitis, w/o bleedingEncounter for screening for depressionEncounter for screening examination for other mental health and behavioral disorders 4 Casey Emi. [address], [place], [address] , [place]. tel:[phone] [facility], [address] [place] [address], [facility], tel:[phone] [facility] [place] COVID TEST (chief complaint) Encounter for screening for [id number] 4 Casey Emi. [address], [place], [address] , [place]. tel:[phone] [facility], [address] [place] [address], [facility], tel:[phone] [facility] [place] fasting lab collection (chief complaint) Essential (primary) hypertensionHyperlipidem iaBilateral pink eye 3 Casey Emi. [address], [place], [address] , [place]. tel:[phone] [facility], [address] [place] [address], [facility], [place] tel:[phone] [facility] [place] sore throat (chief complaint) Acute pharyngitisBody mass index [BMI] 27.0-27.9, adult 3 Casey Emi. [address], [place], [address] , [place]. tel: [phone] [facility], [address] [place] [address], [facility], tel:[phone] [facility] [place] Anxiety (chief complaint) Hypothyroidism, unspecifiedBody mass index [BMI] 27.0-27.9, adultAnxiety disorder, unspecifiedAD/HD, predominantly inattentive presentationMood disorderEssential (primary) hypertensionNicotine dependence, cigarettes, w/ other nicotine-induced disorder 3 Casey Emi. [address], [place], [address] , [place]. tel: [phone] [facility], [address] [place] [address], [facility], tel:[phone] [facility] [place] Medication (chief complaint) AD/HD, predominantly inattentive presentationBody mass index [BMI] 27.0-27.9, adultAnxiety disorder, unspecifiedEmotional labilityNicotine dependence, cigarettes, w/ other nicotine-induced disorderHypothyroidism 3 Casey Emi. [address], [place], [address] , [place]. tel: [phone] [facility], [address] [place] [address], [facility], [place] tel:[phone] [facility] [place] Fasting Labs (chief complaint) Essential (primary) hypertension 3 Casey Emi. [address], [place], [address] , [place]. tel: [phone] [facility], [address] [place] [address], [facility], [place] tel:[phone] [facility] [place] Follow up on Labs (chief complaint) Anxiety disorder, unspecifiedEmotional labilityEssential (primary) hypertensionHyperlipidem iaHypothyroidismMood disorderBody mass index [BMI] 27.0-27.9, adult Naren- 3 Casey Emi. [address], [place], [address] , [place]. tel:[phone] [facility], [address] [place] [address], [facility], tel:[phone] [facility] [place] lab collection (chief complaint) Essential (primary) hypertension 3 Casey Emi. [address], [place], [address] , [place]. tel:[phone] [facility], [address] [place] [address], [facility], tel:[phone] [facility] [place] follow up meds (chief complaint) Body mass index [BMI] 28.0-28.9, adultAnxiety disorder, unspecified 3 Casey Emi. [address], [place], [address] , [place]. tel:[phone] [facility], [address] [place] [address], [facility], tel:[phone] [facility] [place] follow up on meds (chief complaint) Body mass index [BMI] 28.0-28.9, adultAnxiety disorder, unspecifiedMenopause 3 Casey Emi. [address], [place], [address] , [place]. tel:[phone] [facility], [address] [place] [address], [facility], tel:[phone] [facility] [place] menopause (chief complaint) Anxiety disorder, unspecifiedEmotional labilityEssential (primary) hypertensionHypothyroidi smMood disorderNicotine dependence, cigarettes, w/ other nicotine-induced disorderUnspecified menopausal and perimenopausal disorder 3 Casey Emi. [address], [place], [address] , . tel: [phone] [facility], [address] [place] [address], [facility], tel:[phone] [facility] [place] follow up (chief complaint) Body mass index [BMI] 29.0-29.9, adultAcute upper respiratory infection, unspecifiedHypothyroidis mHyperlipidemiaEssential (primary) hypertension 3 Casey Emi. [address], [place], [address] , . tel: [phone] [facility], [address] [place] [address], [facility], tel:[phone] [facility] [place] follow up meds (chief complaint) Body mass index [BMI] 29.0-29.9, adultAnxiety disorder, unspecifiedMood disorderHypothyroidismNi cotine dependence, cigarettes, w/ other nicotine-induced disorder 3 Casey Emi. [address], [place], [address] , . tel: [phone] [facility], [address] [place] [address], [facility], tel:[phone] [facility] [place] GERD (chief complaint) GERD disease w/ esophagitis, w/o bleeding 3 Casey Emi. [address], [place], [address] , [place]. tel:[phone] [facility], [address] [place] [address], [facility], [place] tel:[phone] [facility] [place] follow up labs (chief complaint) Anxiety disorder, unspecifiedHypothyroidis mHyperlipidemiaGERD disease w/ esophagitis, w/o bleedingNicotine dependence, cigarettes, w/ other nicotine-induced disorderElevated blood-pressure reading w/o diagnosis of HTNBody mass index [BMI] 29.0-29.9, adult 2 Casey Emi. [address], [place], [address] , [place]. tel:[phone] [facility], [address] [place] [address], [facility], tel:[phone] [facility] follow up medication (chief complaint) ADHDAnxiety disorder, unspecifiedHypothyroidis mMood disorderMixed irritable bowel syndromeChanges in skin texture 2 Casey Emi. [address], [place], [id number] , [place]. tel: [phone] [facility], [address] [place] [address], [facility], tel:[phone] [facility] anxiety (chief complaint) Anxiety disorder, unspecifiedHypothyroidis [facility] 2 Casey Emi. [address], [place], [address] , [place]. tel: [phone] [facility], [address] [place] [address], [facility], [place] tel:[phone] [facility] follow up labs (chief complaint) Anxiety disorder, unspecifiedHypothyroidis mHyperlipidemiaMood disorderOtalgia, right ear 2 Casey Emi. [address], [place], [address] , [place]. tel: [phone] [facility], [address] [place] [address], [facility], [place] tel:[phone] [facility] NEW PATIENT (chief complaint)G eneSight Testing (chief complaint) Encounter for screening for depressionEncounter for screening examination for other mental health and behavioral disordersEncounter for screening for diseases of the blood and blood-forming organs and certain disorders involving the immune mechanismAnxiety disorder, unspecifiedEmotional labilityFatigueEncounter for immunization 2 Jacinto Middleton. [address], [place], [address] , . tel:[phone] Family History Family Member Type Diagnosis Age [...] Registry Payers Payer name Insurance type Covered green party ID Authoriza tion(s) [employer] [facility] [id number] [employer] [facility] [id number] [employer] [employer] [id number] Social History Type Description Quantity Date Captured [...] Appointment date/timeframe: 08/17/2025 ordered Referral Referred To: [facility] Ordered: Referrals: Gastroenterology. [facility]. Location: [place]. Evaluate and treat. Diagnostic testing Appointment date/timeframe: 09/10/2025 ordered Referral Ordered: SCR MAMMO BI INCL CAD Bilateral breast Appointment date/timeframe: 05/18/2025 ordered Referral Ordered: US EXAM, ABDOM, COMPLETE Right abdomen Appointment date/timeframe: 05/18/2025 ordered Referral Ordered: Referrals: Orthopedic Surgery. Evaluate and treat Appointment date/timeframe: 06/20/2024 ordered Referral Ordered: X-RAY EXAM OF LOWER SPINE Bilateral back Appointment date/timeframe: 1 Day ordered Referral Referred To: [facility] Latasha lundberg Ordered: Referrals: Psychiatry. [facility] Latasha lundberg. Location[place]. Consult Appointment date/timeframe: 1 Day ordered [facility] Location: [place], [place]. Evaluate and treat Appointment date/timeframe: 12/28/2022 ordered Referral Ordered: referred to Gastroenterology ordered Referral Referred To: [facility] Ordered: Referrals: Dermatology. [facility]. Location: [place]. Evaluate and treat Appointment date/timeframe: 11/03/2022 ordered Appointment Arcelia Vivar - [facility] ASHRAF KEJuan Future Order: Lab Order Comp. Me tabolic Panel (14) ([id number]), Scheduled for: Ordered Future Order: Lab Order T3 U[place] e ([id number]), Scheduled for: Ordered Future Order: Lab Order TSH Rfx on Abnormal to Free T4 ([id number]), Scheduled for: Ordered Future Order: Lab Order PTH, Int act ([id number]), Scheduled for: Ordered Future Order: Lab Order Hemoglob in A1c ([id number]), Scheduled for: Ordered Future Order: Lab Order CBC With Differential/Platelet ([id number]), Scheduled for: Ordered Future Order: Lab Order Lipid Pa yeny ([id number]), Scheduled for: Ordered Future Order: Lab Order URINALYS IS, AUTO, W/O SCOPE ([id number]), Collected on: Ordered Future Order: Lab Order CBC (INC LUDES DIFF/PLT) ([id number]), Scheduled for: Ordered Future Order: Lab Order COMPREHE NSIVE METABOLIC PANEL ([id number]), Scheduled for: Ordered Future Order: Lab Order HEMOGLOB IN A1C ([id number]), Scheduled for: Ordered Future Order: Lab Order LIPID PA YENY ([id number]), Scheduled for: Ordered Future Order: Lab Order TSH W/RE FLEX TO FREE T4 ([id number]), Scheduled for: Ordered Future Order: Lab Order VITAMIN D,25-OH,TOTAL,IA ([id number]), Scheduled for: Ordered Future Order: Lab Order [...] G ronnyian has verified being in the [facility] and has given verbal consent to be treated via telehealth/telephone consultation. Today's visit is being completed via; Life in Hi-Fi videoPatient and/or Guardian provided full consent to [...] G gem has verified being in the [facility] and has given verbal consent to [...] FLU VACCINE. ADMINISTERED INFLUENZA VACCINE AFLURIA, LOT# [id number], EXP: 03.31.25. PT TOLERATED WELL, BAND AID APPLIED. CONSENT SIGNED AND SCANNED TO CHART. follow up on labs Arcelia is here to day for f/u on labs:CBC okTSH elevated 6.070- Arcelia reports having increased fatigue.She does report compliance with her medication, no missed dosesCa+11.0ALK Calr 126She has no other complaints at this [...] cessation declined.Denies vaginal complaints.Last Mammo in 6.9.2022- [facility]- , has an appt this Wednesday for [...] much better than her last visit- completed [id number] 5.8, Glucose 108- new PreDM- handouts given. Diet modifications recommended to decrease processed sugars, carbsVit D 77TSH 3.70B12 1472WBC 17.0- Sick at time of collection- treatedTotal Cholesterol 162HDL 42Trigs 130, LDL 97- Much improvedShe states she is doing wellTaking her medications as instructedMammo- [facility]Fl[facility]- last year - scheduled in April for routine women's healthColonoscopy AprilSmokes 1ppd- trying to cut back and quitnot ready to completely stop at this timeRefills sent to pharmacyTannre Shields for controlled adhd sore throat Onset: [...] increased depressed mood. Had [facility] last weekSees Alyson on the for vyvance- [...] + AMP, otherwise Larissa is transitioning into [facility] for medication management.Dr. Thomas has agreeded to give 1 month of vyvance [facility] on 06.28.23 with Zohra(won't see Khadijah until [...] well dressed todayShe did not go to [facility]- has appt today at 10, but does [...] stated she is currently worried about her gssdej-cd-oax. She didn't show much emotion today. Pt counseled on the importance of taking her medications as prescribed and keeping follow up appointments. Pt made an appointment for counseling with [facility] this AM. follow up on meds Arcelia [...] D3 and glucosimineMood has been down-tearfulalso started [id number] to stop until adjusts to current medicationsRTC [...] onlanzaprine and lexapro.I have sent her to [facility] for counsling and med management, but she [...] just life. She has been referred to [facility] for therapy, and made several appointments, but [...] loss. Additional information: has appt w/ gastro [facility] for colonoscopy on 12/28/22 at 10:30, reports [...] she went back to her last PCP RJOELIO Boo and she is currently writing for her dexemethylpheninate 30 mg daily. She reports she is doing better, but today in office is very hard to follow Arcelia in concentration.Depression/anxiety- improved, but reports increased stress w/ her sick grandmother.She states she is taking olanzipine dailyShe did not go to her appt with [facility] because "I feel like I am ok. GERD> Arcelia reports she continues to have gerd symptoms.She states there was a while she was without her pantaprazole and symptoms were worse.She would like to have another Endoscopy/Colonoscopylast was done w/ Margarita Schumacher [facility]- per pt report.She states she sometimes [...] unable to focusShe has an appt w/ [facility] on the and will set up appt w/ Khadijah for medication managementInitially bp was elevatedRepeat 116/62hr elevated initially 112, now is 94She reports she has IBS, has had some bloating taking benefiberworks well. Wants referal to Dermatology- routine skin manager process improvement visit over the weekend- thought she had [...] malaise establish care [facility]. She has been seeing Isis [...] stop smoking/vaping, there is a free online [place] from smoking course offered through our local health department. You may call [phone] for more information.Use Nicotine gum as instructed [...] stop smoking/vaping, there is a free online [place] from smoking course offered through our local health department. You may call [phone] for more information.Use nicotine patches and gum [...] stop smoking/vaping, there is a free online [place] from smoking course offered through our local health department. You may call [phone] for more information. Related to Nicotine dependence, [...] help with dry skin.Keep upcoming appointment with [facility] for further evaluation Related to Menopause Giving [...] stop smoking/vaping, there is a free online [place] from smoking course offered through our local health department. You may call [phone] for more information. Related to Nicotine dependence, [...] exercise if able to tolerate.Continue care with [facility] and current medications Related to Anxiety disorder, [...] adult; and Caloric intake should be around 5688-5158 for a female, and 4820-2103 for an adult male. Fiber intake should [...] education. You may also refer to the [place] [employer] website for further low sodium, [...] stop smoking/vaping, there is a free online [place] from smoking course offered through our local health department. You may call [phone] for more information.Use nicotine patches as instructed.RTC [...] You MUST keep your upcoming appointments with [facility], or you will be with out this [...] stop smoking/vaping, there is a free online [place] from smoking course offered through our local health department. You may call [phone] for more information.Use nicotine patches as instructed.RTC [...] stop smoking, there is a free online [place] from smoking course offered through our local health department. You may call [phone] for more information. Related to Nicotine dependence, [...] stop smoking, there is a free online [place] from smoking course offered through our local health department. You may call [phone] for more information. Related to Nicotine dependence, [...] stop smoking, there is a free online [place] from smoking course offered through our local health department. You may call [phone] for more information. Related to Nicotine dependence, [...] adult Keep your up coming appt with [facility] for medication management Related to ADHD Continue current dose of medicat ion Related to Hypothyroidism Referral to [facility]erm[facility] at [facility] We will call with an appointment once obtained or you may contact their office [facility] [phone] Related to Changes in skin texture Discussed [...] but am glad to refer you to [facility] for medication management. Related to ADHD Take [...] Mental Status Date Cognitive Assessment Orientation - [place] ed to time, place, person, situation.
--- OUTSIDE RECORDS SUMMARY | 2025-08-17 08:21 | XMS_ITS | Clinical Summary ---
Author Organization Healthcare Address [address] [place] [address] Care Team Providers Care Cage Shift Manager Name Role Phone Unavailable Primary Care Provider [...] Cancer Screening 07/10/2024 [facility]-HPV/Cotest 07/10/2024 07/10/2019, 05/20/2016 [id number] Vaccine ( season) 2025 12/20/2020, 11/20/2020 [facility]-Influenza [...] 06/04/2020 Mammography Breast Diagnostic Tomosynthesis Bilateral at [facility] 06/04/2020 Mammography Stereotactic Breast Biopsy Right at [facility] 06/04/2020 Mammography Stereotactic Breast Biopsy Each Additional Historical at [facility] 06/04/2020 Mammography Breast Post Biopsy Clip Bilateral at [facility] 01/10/2021 Mammography Breast Diagnostic Tomosynthesis Bilateral at [facility] 04/07/2022 Mammography Breast Screening Tomosynthesis Bilateral at [facility] 04/08/2023 Mammography Breast Screening Tomosynthesis Bilateral at [facility] BREAST COMPOSITION: The breasts are heterogeneously dense, which may obscure small masses. FINDINGS: There are post-biopsy clip(s) present in the left breast. There is no evidence of suspicious masses, calcifications, or other abnormal findings. us Self Referral Mammogram IMG BI PROCEDURES Final Result * Cytology (07/10/2019 12:00 AM EDT) 07/10/2019 07/10/2019 3:3 9 PM EDT Narrative SUNQUEST - 07/14/2019 5:59 AM EDT [facility] MR #: [id number] [facility] [place], [place] [address] 1970 (Age: 48) FW Collect Date: 07/10/2019 00:00 Receipt Date: 07/10/2019 15:39 Page 1 DEPARTMENT OF PATHOLOGY AND LABORATORY MEDICINE CYTOPATHOLOGY REPORT Email: [email or web address] [id number] ATTENDING MD/Practitioner: Rupal Vasquez MD Service: [facility] Location: [facility] Reported: 07/14/2019 05:59 Collected: 07/10/2019 00:00 INTERPRETATION A. THIN PREP (CERVICAL/VAGINAL): NEGATIVE FOR INTRAEPITHELIAL LESION OR MALIGNANCY. SATISFACTORY FOR EVALUATION; ENDOCERVICAL/ TRANSFORMATION ZONE COMPONENT PRESENT. Slide scanned and imaged by [employer] ThinPrep Imaging System with manual review of all selected mckinnon. Electronically Signed Out By TERMAYNE Tirado(ASCP) TREMAYNE Tirado(ASCP) Cervical cytology is a [...] results is suggested (please call Microbiology at [phone] for results). CLINICAL INFORMATION: Menstrual History: Cyclic Date of Last Menstrual Period: {Not Provided} Other Clinical Conditions: If ASCUS and > 24 years of age, HPV/DNA testing requested. SPECIMEN DESCRIPTION: A: THIN PREP (CERVICAL/VAGINAL) THIN PREP PROCESS CELLULAR ENHANCEMENT ICD: F: A; RT IMAGE [id number] SNOMED CODES: A; [id number] [id number] [id number] In cases where a pathologist has signed out the report, the service has been rendered in part by a resident. The signing pathologist has performed and is responsible for the reported pathologic evaluation. Isis Vasquez MD LAB PATHOLOGY ORDERABLES Viktoriya guevara Result SUNQUEST from Last 3 Months or Most Recently Relevant to Health Maintenance Insurance [facility]
--- NOTE | 2025-08-17 08:22 | CT_ITS ---
FINAL REPORT TECHNIQUE: Pre-and postcontrast axial imaging of the abdomen and pelvis was obtained.This study was performed with techniques to keep radiation doses as low as reasonably achievable, (ALARA). Individualized dose reduction technique using automated exposure control or adjustment of mA and/or kV according to the patient's size were employed. CLINICAL HISTORY: ABD PAIN LEFT SIDED FINDINGS: The lung bases are clear. The liver is homogeneous. The gallbladder is present. The spleen, adrenal glands, and pancreas are unremarkable. There is no hydronephrosis or solid renal mass. On precontrast imaging, no renal stones are identified. Abdominal GI tract is unremarkable. There is no lymphadenopathy or ascites. There is no evidence of small bowel obstruction. The appendix has been resected. The uterus and ovaries are unremarkable for age. There is a small fat-containing umbilical hernia. There is no lymphadenopathy or ascites. No acute osseous abnormalities identified. IMPRESSION: No evidence of acute renal abnormality or hydronephrosis. Small fat-containing umbilical hernia. Reviewed, Interpreted and Dictated by Ciarra Yan MD Transcribed by Pennie Shi Authenticated and [facility]
[2025-08-17] MEDS: SODIUM CHLORIDE 0.9% 10ML SYR (RAD ONLY) 10 ML IV (08:42)
[2025-08-17] MEDS: IOPAMIDOL-370 (76%);100ML BOTTLE 75 ML IV (08:42)
== END 2025-08-17 23:59 | disposition home or self-care (01) ==
LOC: RAD 08:18
PROVIDERS: PCP Nurse Practitioner Family; Visit Provider Nurse Practitioner Family
DX: K42.9 Umbilical hernia without obstruction or gangrene (principal); R10.9 Unspecified abdominal pain
CPT/HCPCS: 74178; Q9967

== ENCOUNTER 2025-08-23 07:17 | Day surgery (SDC) | payer BC, SELFPAY ==
--- NOTE | 2025-08-22 07:17 | EXP.HP ---
History of Present Illness *Admission Date: 08/23/25 *History of present illness: Mrs. Vivar is a 54-year-old female who is here for diagnostic EGD and colonoscopy. The patient does have a long history of mixed irritable bowel syndrome with alternating constipation and diarrhea. She has had excessive bloating. She also reports some black stools. She does have a history of GERD and gets more severe heartburn and reflux if she forgets to take her Nexium. She did have EGD and colonoscopy in April 2023 (Abilio Constantino M.D.) she was given 3-year surveillance interval because of fair bowel prep. The examination is deemed medically necessary for EGD and colonoscopy. The patient has been seen, interviewed and examined prior to the procedure by both myself and the anesthesia provider. [facility] Disclaimer: The information contained in this section may have been updated after the patient was seen, as this information can be updated by other users. Medical History Symptomatic menopausal or female climacteric states Bipolar disorder, current episode depressed, mild Gastroesophageal reflux disease Attention Deficit Hyperactivity Disorder (ADHD) Surgical History History of appendectomy History of tubal ligation History of colonoscopy Family History Other No significant family history Social History (Updated 08/23/25 @ 08:03 by Donna Palumbo RN) Smoking Status: Never smoker alcohol intake: never substance use type: denies use current occupational status: employed Travel in the last 8 weeks?: None household members: family housing: house caffeine: Yes do you feel safe at home: Yes victim of physical abuse: No victim of emotional abuse: No victim of sexual abuse: No would you like helpful sources: No Have you lived/traveled outside US in past 30 days?: No Contact w/someone who lives/traveled outside US past 30 days?: No Exposure to someone with infectious disease in past 14 days?: No Do you have a fever (greater than 100.4 F or 38 C)?: No Have you tested positive for COVID-19?: No Exposed to someone with COVID-19 in past 14 days?: No Do you have a sore throat?: No Do you have a cough?: No Do you have any weakness?: No Are you experiencing any nausea/vomitting?: No Do you have any diarrhea?: No Are you experiencing any unusual bleeding?: No Do you have any muscle aches/pain?: No Do you have any abdominal pain?: No Are you experiencing loss of taste or smell?: No Other Medical History Have you received the Flu Vaccine for this season: Yes Have you received the Pneumonia Vaccine: No Review of Systems Review of Systems Review of systems (narrative): Negative *Cardiovascular Comments: Negative *Gastrointestinal Comments: Negative *Genitourinary Comments: Negative *Musculoskeletal Comments: Negative *Neurologic Comments: Negative Meds Home Medications and Allergies Home Medications ?Medication ?Instructions ?Recorded ?Confirmed ?Type lactobacillus combination no.9 4 1 cap PO DAILY Supplement 01/11/19 08/22/25 History billion cell capsule (Adult 50 Plus Probiotic) rosuvastatin 20 mg tablet 20 mg PO DAILY hld 11/18/22 08/23/25 History olanzapine 10 mg tablet 10 mg PO DAILY 12/04/24 08/23/25 History buspirone 10 mg tablet 10 mg PO BID mood 07/04/25 08/22/25 History cyanocobalamin (vitamin B-12) 1,000 mcg PO DAILY 07/04/25 08/22/25 History 1,000 mcg capsule dextroamphetamine-amphetamine 30 30 mg PO BID 07/04/25 08/23/25 History mg tablet ergocalciferol (vitamin D2) 1,000 5,000 unit PO DAILY 07/04/25 08/23/25 History unit capsule escitalopram oxalate 20 mg tablet 20 mg PO DAILY 07/04/25 08/23/25 History esomeprazole magnesium 20 mg 20 mg PO DAILY 07/04/25 08/23/25 History capsule,delayed release (Nexium) estradiol 6 mg implant pellet 6 mg SQ CONT 07/04/25 08/23/25 History fluticasone propionate 50 1 spray intranasal DAILY 07/04/25 08/23/25 History mcg/actuation nasal spray,suspension levothyroxine 100 mcg tablet 112 mcg PO DAILY hypothyroidism 07/04/25 08/22/25 History (Euthyrox) magnesium 200 mg tablet 200 mg PO DAILY 07/04/25 08/22/25 History progesterone micronized 100 mg 300 mg PO DAILY 07/04/25 08/22/25 History capsule testosterone 25 mg implant pellet 25 mg implant CONT 07/04/25 08/23/25 History sodium sul 1.479 gram-potas ch See Rx Instructions PO PER PKG DIR 08/21/25 08/22/25 Rx 0.188 gram-magnes sul 0.225 gram colonscopy #24 tabs tablet (Sutab) New Prescriptions to Start Prescriptions: Allergies Allergy/AdvReac Type Severity Reaction Status Date / Time No Known Allergies Allergy Verified 08/23/25 07:54 Exam *Routine HEENT Exam Head: Present normocephalic Eye: Present EOMI and PERRL ENT: Present mucous membranes moist *Routine Neck Exam Neck: Present supple *Routine Respiratory Exam Respiratory: Present CTA bilaterally *Routine Cardiovascular Exam Cardiovascular: Present RRR *Routine Abdominal Exam Abdominal: Present soft and normoactive bowel sounds; Absent tenderness *Routine Rectal Exam Rectal:: deferred *Routine Genitalia Exam Genitalia:: deferred *Routine Extremities Exam Extremities: Absent cyanosis, clubbing or edema *Routine Skin Exam Skin: Present warm; Absent rash *Routine Neurological Exam Neurological: Present alert and oriented X3 Assessment and Plan *Assessment and plan (1) Black stool: Status: Acute Category: Medical Code(s): K92.1 - Melena (2) Early satiety: Status: Acute Category: Medical Code(s): R68.81 - Early satiety (3) Bloating: Status: Acute Category: Medical Code(s): R14.0 - Abdominal distension (gaseous) (4) Irritable bowel syndrome with mixed bowel habits: Status: Acute Category: Medical Code(s): K58.2 - Mixed irritable bowel syndrome (5) Gastroesophageal reflux disease: Status: Chronic Qualifiers: Esophagitis presence: esophagitis presence not specified Qualified Code(s): K21.9 - Gastro-esophageal reflux disease without esophagitis Category: Medical Code(s): K21.9 - Gastro-esophageal reflux disease without esophagitis Plan A/P: 1. Black stool, early satiety, bloating and GERD is the preprocedural diagnosis. The patient will be anesthetized/sedated using MAC sedation. The patient has been seen and examined. Cardiac and lung assessment prior to the examination is stable. Proceed with planned diagnostic EGD and colonoscopy.
[2025-08-22 08:33] VITALS: BMI 26.5
--- NOTE | 2025-08-23 06:54 | P.PCN_ITS ---
[facility] Procedure Note Date: 08/23/25 Time: 09:03 Procedure Note:: Upper Endoscopy Procedure Report: Esophagogastroduodenoscopy with cold biopsies Endoscopost: Levi Tapia II, MD Referring Physician: HUSAM Mcgrath Date of Procedure: August 23, 2025 Equipment: Olympus GIF-1100 standard upper endoscope Sedation: MAC sedation Indications: Mrs. Vivar is a 54-year-old female who is here for diagnostic EGD and colonoscopy. The patient does report a knot in the left upper abdomen. This often feels clenched. The patient feels like she cannot catch her breath. She does have a lot of bloating and some early satiety. She reports no nausea or dysphagia. The patient does have a long history of mixed irritable bowel syndrome with alternating constipation and diarrhea. She also reports some black stools. She does have a history of GERD and gets more severe heartburn and reflux if she forgets to take her Nexium. She did have EGD and colonoscopy in April 2023 (Abilio Constantino M.D.) she was given 3-year surveillance interval because of fair bowel prep. The examination is deemed medically necessary for EGD and colonoscopy. Procedure: Prior to the procedure, a history and physical exam was performed, and patient's medications and allergies were reviewed. The risks, benefits and alternatives of the sedation and procedure were discussed with the patient. All questions were answered and informed consent was obtained. The patient was brought to the procedure room. Patient identification and proposed procedure were verified by the physician and the nurse. The patient was placed in a left lateral decubitus position and the scope was passed under direct vision. Throughout the procedure, the patient's blood pressure, pulse, and oxygen saturations were monitored continuously. The upper GI endoscopy was accomplished without difficulty. The patient tolerated the procedure well. Findings: The scope was passed directly into the upper esophagus and advanced to the third portion of the duodenum. The 2nd and 1st portion of the duodenum were normal and the ampulla was normal. 2 cold biopsies were taken from the second portion of the duodenum for the disaccharidase assay. There were superficial erosions/ulceration in the duodenal bulb. The scope was withdrawn through a normal pylorus into the stomach. There was some bile reflux with mild antral gastropathy and some erosions in the antrum. The body and fundus of the stomach were normal. Upon retroflexion there was no hiatal hernia. Biopsies were taken at the incisura to rule out H. pylori. The scope was then withdrawn into the esophagus. There was no evidence of reflux esophagitis or Jc's. The remainder of the esophageal mucosa was normal. Impression: 1. Nonerosive GERD 2. Bile reflux with mild linear antral erosive gastropathy 3. Erosive duodenitis of duodenal bulb?rule out NSAID mucosal injury Plan: I will inquire about NSAIDs. I will follow-up the biopsies and disaccharidase assay. 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 I will proceed with colonoscopy.
--- NOTE | 2025-08-23 06:55 | HMH.PROCNOTE ---
[facility] Procedure Note Date: 08/23/25 Time: 09:16 Procedure Note:: Colonoscopy Procedure Report: Colonoscopy Endoscopist: Levi Tapia II, MD Referring physician: HUSAM Mcgrath Date of Procedure: August 23, 2025 Equipment: Olympus [id number] adult colonoscope Sedation: MAC sedation Indication: Mrs. Vivar is a 54-year-old female who is here for diagnostic EGD and colonoscopy. The patient does have a long history of mixed irritable bowel syndrome with alternating constipation and diarrhea. She has had excessive bloating. She also reports some black stools. The patient reports no rectal bleeding, weight loss or family history of colon cancer. She did have EGD and colonoscopy in April 2023 (Abilio Constantino M.D.) she was given 3-year surveillance interval because of fair bowel prep. The examination is deemed medically necessary for EGD and colonoscopy. Procedure: Prior to the procedure, a history and physical exam was performed, and patient's medications and allergies were reviewed. The risks, benefits and alternatives of the sedation and procedure were discussed with the patient. All questions were answered and informed consent was obtained. The patient was brought to the procedure room. Patient identification and proposed procedure were verified by the physician and the nurse. The patient was placed in a left lateral decubitus position and the scope was passed under direct vision. Throughout the procedure, the patient's blood pressure, pulse, and oxygen saturations were monitored continuously. The colonoscopy was accomplished without difficulty. The patient tolerated the procedure well. Findings: On digital rectal examination there was normal rectal tone. There were no external hemorrhoids. The colonoscope was introduced through the anal canal to the rectum and advanced to the cecum. The ileocecal valve and appendiceal orifice were identified. The scope was advanced a short distance into the ileum which appeared grossly normal. The scope was then withdrawn into the colon. The cecum, ascending and transverse colon and mucosa were grossly normal. There were scattered diverticuli throughout the descending and sigmoid colon (LEFT colon). The rectum itself was normal. Upon retroflexion within the rectum there were very small grade 1 internal hemorrhoids. The preparation was excellent throughout with [place] Preparation Score of 9. The cecal time was 10 minutes. Impression: 1. Left-sided diverticulosis Plan: The patient will not require screening/surveillance colonoscopy again for 10 years. 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 Splenic flexure syndrome is a term used to describe bloating, muscle spasms of the colon and upper abdominal pain on the left side and is thought to be caused by trapped gas and stool at the splenic flexure/curvature of the colon which is in the left upper colon. I would consider treatment with prucalopride (for IBS constipation) and buspirone (neuromodulation for splenic flexure syndrome). We will discuss treatment options.
[2025-08-23 07:53] VITALS: BP 108/80; PULSE 95; RESP 18; TEMP 36.1; O2SAT 96
[2025-08-23] MEDS: LACTATED RINGERS 1000ML 1,000 ML 50 ML IV (08:05)
--- NOTE | 2025-08-23 08:21 | EXP.ANES.CKL ---
[facility] Disclaimer: The information contained in this section may have been updated after the patient was seen, as this information can be updated by other users. Medical History Symptomatic menopausal or female climacteric states Bipolar disorder, current episode depressed, mild Gastroesophageal reflux disease Attention Deficit Hyperactivity Disorder (ADHD) Surgical History History of appendectomy History of tubal ligation History of colonoscopy Family History Other No significant family history Social History (Updated 08/23/25 @ 08:03 by Donna Palumbo RN) Smoking Status: Never smoker alcohol intake: never substance use type: denies use current occupational status: employed Travel in the last 8 weeks?: None household members: family housing: house caffeine: Yes do you feel safe at home: Yes victim of physical abuse: No victim of emotional abuse: No victim of sexual abuse: No would you like helpful sources: No Have you lived/traveled outside [place] in past 30 days?: No Contact w/someone who lives/traveled outside [place] past 30 days?: No Exposure to someone with infectious disease in past 14 days?: No Do you have a fever (greater than 100.4 F or 38 C)?: No Have you tested positive for COVID-19?: No Exposed to someone with COVID-19 in past 14 days?: No Do you have a sore throat?: No Do you have a cough?: No Do you have any weakness?: No Are you experiencing any nausea/vomitting?: No Do you have any diarrhea?: No Are you experiencing any unusual bleeding?: No Do you have any muscle aches/pain?: No Do you have any abdominal pain?: No Are you experiencing loss of taste or smell?: No [facility] Anesthesia Checklist Patient Identification Patient Identification: Arm Band Structural Data Admitted From: Home Planned Operative Procedure/s: EGD/Colonoscopy Consent for Planned Operative Procedure(s) Verified: Yes Verified Documents: Surgical Consent and History and Physical NPO Status Verified Time NPO: 01:30 (finished prep) Additional verifications Anesthesia Reactions: No Airway Assessment Mallampati Score:: Class II C-Spine Mobility Assessed: Yes TMJ Mobility Assessed: Yes Dentition: Good Dentition Neurological Assessment Level of Consciousness: Awake, Alert and Appropriate Anesthesia Plan Anesthesia Risk discussed: Yes Anesthesia Plan: Verified ASA Class: II Anesthesia Type: MAC
[2025-08-23 09:19] VITALS: BP 112/64; PULSE 106; RESP 18; TEMP 36.3; O2SAT 96
[2025-08-23 09:29] VITALS: BP 114/72; PULSE 98; O2SAT 97
[2025-08-23 09:39] VITALS: BP 129/74; PULSE 100; O2SAT 100
[2025-08-23 09:49] VITALS: BP 129/77; PULSE 91; O2SAT 97
[2025-08-28 14:30] LABS: Interpretation Notes (.); Lactase 3.54 (>/= 14.0); Maltase 87.57 (>/= 110.0); Palatinase 5.15 (>/= 8.5); Reference Notes (.); Sucrase 18.67 (>/= 25.0)
== END 2025-08-23 09:49 | disposition home or self-care (01) ==
PROVIDERS: PCP Nurse Practitioner Family; Visit Provider Internal Medicine Gastroenterology
PROC: 0DJ08ZZ Inspection of Upper Intestinal Tract, Via Natural or Artificial Opening Endoscopic (ICD-10-PCS; CPT 45378; principal; 2025-08-23 09:00)
DX: K21.9 Gastro-esophageal reflux disease without esophagitis (principal); K31.89 Other diseases of stomach and duodenum; K25.9 Gastric ulcer, unspecified as acute or chronic, without hemorrhage or perforation; K26.9 Duodenal ulcer, unspecified as acute or chronic, without hemorrhage or perforation; K64.0 First degree hemorrhoids; K57.30 Diverticulosis of large intestine without perforation or abscess without bleeding; K58.1 Irritable bowel syndrome with constipation; K92.1 Melena; K58.2 Mixed irritable bowel syndrome; F31.31 Bipolar disorder, current episode depressed, mild; F90.9 Attention-deficit hyperactivity disorder, unspecified type; E03.9 Hypothyroidism, unspecified
CPT/HCPCS: 43239; 45378; 82657; J2003; J2704; J7120